=== PATIENT | male | born 1970 | race Caucasian/White ===

== ENCOUNTER 2016-07-25 08:30 | Inpatient (IN) | payer OTHER ==
[2016-07-25] MEDS ORDERED: NITROGLYCERIN SL TABS 0.4 MG TAB SUBLINGUAL PRN ×3 (08:51→13:17)
[2016-07-25] MEDS ORDERED: NITROGLYCERIN SL TABS 0.4 MG TAB SUBLINGUAL STA ×2 (08:53)
[2016-07-25] MEDS ORDERED: ASPIRIN 81 MG CHEW PO STA (08:53)
--- NOTE | 2016-07-25 08:59 | ED ---
General Adult HPI - General Chief complaint: Chest Pain Stated complaint: chest pain Source: patient, RN notes reviewed Mode of arrival: wheelchair Limitations: no limitations - History of Present Illness Initial comments: Is a 45-year-old male presents emergency Department with a past medical history significant for heart attack and one stent placed. Patient states he also is a smoker and has high blood pressure. Patient comes in today because last night at 10:00 started having chest pain he took 2 nitroglycerin 5 minutes apart and took the pain away completely. Patient states a little while after he started having chest pain indication of the pain radiates to his left arm. Patient states the pain is a pressure sensation in his been ongoing since last night. Patient states this pain is similar to his heart attack pain except worse. Patient states that he has been very diaphoretic. Patient denies any recent fever chills or cough. Patient denies any nausea. Patient denies any abdominal pain patient denies any headache patient denies numbness weakness. Patient denies any lightheadedness dizziness or near-syncopal episode. - Related Data Home Medications Medication Instructions Recorded Confirmed Cyclobenzaprine [Flexeril] 10 mg PO BID 11/08/15 07/25/16 PARoxetine [Paxil] 40 mg PO DAILY 11/08/15 07/25/16 oxyCODONE-APAP 7.5-325MG [Percocet 1 tab PO TID PRN 12/08/15 07/25/16 7.5-325 mg] Nitroglycerin Sl Tabs [Nitrostat] 0.4 mg SUBLINGUAL DIRECTED PRN 01/26/16 Previous Rx's Medication Instructions Recorded Aspirin 325 mg PO DAILY #90 tab 10/13/14 Atorvastatin [Lipitor] 80 mg PO HS #90 tab 10/13/14 Diazepam [Valium] 5 mg PO BID PRN #0 tab 10/13/14 Metoprolol Tartrate [Lopressor] 25 mg PO BID #60 tab 10/13/14 Allergies Allergy/AdvReac Type Severity Reaction Status Date / Time diclofenac sodium Allergy Swelling Verified 07/25/16 08:58 [From Arthrotec] misoprostol [From Arthrotec] Allergy Swelling Verified 07/25/16 08:58 Review of Systems ROS Statement: Those systems with pertinent positive or pertinent negative responses have been documented in the HPI. ROS Other: All systems not noted in ROS Statement are negative. Past Medical History Past Medical History: Asthma, Chest Pain / Angina, GERD/Reflux, Hyperlipidemia, Hypertension, Myocardial Infarction (LA), Osteoarthritis (OA) Additional Past Medical History / Comment(s): ARTHRITIS, CHRONIC PAIN, SMOKER Last Myocardial Infarction Date:: 10/2014 History of Any Multi-Drug Resistant Organisms: None Reported Past Surgical History: Orthopedic Surgery Additional Past Surgical History / Comment(s): LEFT KNEE ARTHROSCOPY, BILATERAL HAND CARPAL TUNNEL, LEFT HAND TRIGGER FINGER RELEASE Past Anesthesia/Blood Transfusion Reactions: No Reported Reaction Past Psychological History: Anxiety, Depression Smoking Status: Current every day smoker Past Alcohol Use History: None Reported Additional Past Alcohol Use History / Comment(s): started smoking 1977- down to 1 PPD Past Drug Use History: Marijuana Additional Drug Use History / Comment(s): . - Past Family History Father Family Medical History: Coronary Artery Disease (CAD) Mother Family Medical History: No Reported History General Exam - General Exam Comments Initial Comments: GENERAL: Patient is well-developed and well-nourished. Patient is nontoxic and well- hydrated and is in mild distress. Patient is diaphoretic ENT: Neck is soft and supple. No significant lymphadenopathy is noted. Oropharynx is clear. Moist mucous membranes. Neck has full range of motion without eliciting any pain. EYES: The sclera were anicteric and conjunctiva were pink and moist. Extraocular movements were intact and pupils were equal round and reactive to light. Eyelids were unremarkable. PULMONARY: Unlabored respirations. Good breath sounds bilaterally. No audible rales rhonchi or wheezing was noted. CARDIOVASCULAR: There is a regular rate and rhythm without any murmurs gallops or rubs. ABDOMEN: Soft and nontender with normal bowel sounds. No palpable organomegaly was noted. There is no palpable pulsatile mass. SKIN: Skin is clear with no lesions or rashes and otherwise unremarkable. NEUROLOGIC: Patient is alert and oriented x3. Cranial nerves II through XII are grossly intact. Motor and sensory are also intact. Normal speech, volume and content. Symmetrical smile. MUSCULOSKELETAL: Normal extremities with adequate strength and full range of motion. No lower extremity swelling or edema. No calf tenderness. LYMPHATICS: No significant lymphadenopathy is noted PSYCHIATRIC: Normal psychiatric evaluation. Normal interpersonal interactions appears functionally intact in deals appropriately with others. No signs of depression. No signs of anxiety. Limitations: no limitations Course Vital Signs 07/25/16 07/25/16 07/25/16 08:33 08:41 08:50 Temperature 97.8 F Pulse Rate 108 H 108 H 102 H Respiratory 20 22 24 Rate Blood Pressure 134/75 154/79 154/76 O2 Sat by Pulse 99 96 Oximetry 07/25/16 07/25/16 07/25/16 09:02 09:11 09:15 Temperature Pulse Rate 105 H 111 H 114 H Respiratory Rate Blood Pressure 130/61 131/64 124/54 O2 Sat by Pulse Oximetry 07/25/16 07/25/16 09:52 10:50 Temperature 99.3 F Pulse Rate 110 H 105 H Respiratory 18 20 Rate Blood Pressure 120/60 118/65 O2 Sat by Pulse 96 Oximetry Medical Decision Making - Medical Decision Making EKG shows sinus tachycardia at 102 bpm TX interval is 134 QRS is 86 QT interval is 354 QTC is 461. Patient's EKG shows no ST segment elevation or depression. I compared this EKG to an old EKG. CT of the chest shows no PE. I started heparin on the patient because of his significant cardiac history in the significant symptoms patient was having arrival. He also is getting immediate relief with nitroglycerin I thought this could very well be cardiac in nature. I spoke with Dr. Plaza he admitted the patient I wrote admitting orders and consult cardiology - Lab Data Result diagrams: 07/25/16 08:40 07/25/16 08:40 Lab Results 07/25/16 07/25/16 07/25/16 Range/Units 08:40 08:40 08:40 WBC 16.1 H (3.8-10.6) k/uL RBC 5.41 (4.30-5.90) m/uL Hgb 17.0 (13.0-17.5) gm/dL Hct 49.4 (39.0-53.0) % MCV 91.4 (80.0-100.0) fL MCH 31.4 (25.0-35.0) pg MCHC 34.4 (31.0-37.0) g/dL RDW 13.2 (11.5-15.5) % Plt Count 307 (150-450) k/uL Neutrophils % 73 % Lymphocytes % 19 % Monocytes % 4 % Eosinophils % 2 % Basophils % 1 % Neutrophils # 11.7 H (1.3-7.7) k/uL Lymphocytes # 3.0 (1.0-4.8) k/uL Monocytes # 0.7 (0-1.0) k/uL Eosinophils # 0.3 (0-0.7) k/uL Basophils # 0.1 (0-0.2) k/uL PT (9.0-12.0) sec INR (<1.1) APTT (22.0-30.0) sec D-Dimer (<0.60) mg/L FEU Sodium 135 L (137-145) mmol/L Potassium 4.5 (3.5-5.1) mmol/L Chloride 98 (98-107) mmol/L Carbon Dioxide 25 (22-30) mmol/L Anion Gap 12 mmol/L BUN 8 L (9-20) mg/dL Creatinine 0.76 (0.66-1.25) mg/dL Est GFR (MDRD) Af Amer >60 (>60 ml/min/1.73 sqM) Est GFR (MDRD) Non-Af >60 (>60 ml/min/1.73 sqM) Glucose 276 H (74-99) mg/dL Calcium 9.5 (8.4-10.2) mg/dL Magnesium 1.7 (1.6-2.3) mg/dL Total Bilirubin 0.9 (0.2-1.3) mg/dL AST 29 (17-59) U/L ALT 41 (21-72) U/L Alkaline Phosphatase 151 H (38-126) U/L Total Creatine Kinase 253 H (55-170) U/L CK-MB (CK-2) 2.1 (0.0-2.4) ng/mL CK-MB (CK-2) Rel Index 0.8 Troponin I <0.012 (0.000-0.034) ng/mL Total Protein 7.8 (6.3-8.2) g/dL Albumin 4.2 (3.5-5.0) g/dL 07/25/16 07/25/16 Range/Units 08:40 08:40 WBC (3.8-10.6) k/uL RBC (4.30-5.90) m/uL Hgb (13.0-17.5) gm/dL Hct (39.0-53.0) % MCV (80.0-100.0) fL MCH (25.0-35.0) pg MCHC (31.0-37.0) g/dL RDW (11.5-15.5) % Plt Count (150-450) k/uL Neutrophils % % Lymphocytes % % Monocytes % % Eosinophils % % Basophils % % Neutrophils # (1.3-7.7) k/uL Lymphocytes # (1.0-4.8) k/uL Monocytes # (0-1.0) k/uL Eosinophils # (0-0.7) k/uL Basophils # (0-0.2) k/uL PT 10.4 (9.0-12.0) sec INR 1.0 (<1.1) APTT 23.4 (22.0-30.0) sec D-Dimer 0.91 H (<0.60) mg/L FEU Sodium (137-145) mmol/L Potassium (3.5-5.1) mmol/L Chloride (98-107) mmol/L Carbon Dioxide (22-30) mmol/L Anion Gap mmol/L BUN (9-20) mg/dL Creatinine (0.66-1.25) mg/dL Est GFR (MDRD) Af Amer (>60 ml/min/1.73 sqM) Est GFR (MDRD) Non-Af (>60 ml/min/1.73 sqM) Glucose (74-99) mg/dL Calcium (8.4-10.2) mg/dL Magnesium (1.6-2.3) mg/dL Total Bilirubin (0.2-1.3) mg/dL AST (17-59) U/L ALT (21-72) U/L Alkaline Phosphatase (38-126) U/L Total Creatine Kinase (55-170) U/L CK-MB (CK-2) (0.0-2.4) ng/mL CK-MB (CK-2) Rel Index Troponin I (0.000-0.034) ng/mL Total Protein (6.3-8.2) g/dL Albumin (3.5-5.0) g/dL Critical Care Time Critical Care Time: Yes Total Critical Care Time: 35 Disposition Clinical Impression: Unstable angina pectoris Disposition: [facility] Time of Disposition: 10:58
[2016-07-25 09:03] LABS: Basophils # (A) 0.1 k/uL (0-0.2); Basophils % (A) 1 %; CH 31.7; CHCM 34.8; Eosinophils # (A) 0.3 k/uL (0-0.7); Eosinophils % (A) 2 %; HCT 49.4 % (39.0-53.0); Luc # (Auto) 0.36; Luc % (Auto) 2; Lymphocytes % (A) 19 %; MCH 31.4 pg (25.0-35.0); MCHC 34.4 g/dL (31.0-37.0); MCV 91.4 fL (80.0-100.0); Mean Platelet Volume 6.8; Monocytes # (A) 0.7 k/uL (0-1.0); Monocytes % (A) 4 %; Neutrophils # (A) 11.7 k/uL (1.3-7.7); Neutrophils % (A) 73 %; RBC 5.41 m/uL (4.30-5.90); RDW 13.2 % (11.5-15.5); WBC 16.1 k/uL (3.8-10.6); WBC (Perox) 16.55
[2016-07-25 09:15] LABS: ALT 41 U/L (21-72); AST 29 U/L (17-59); Alkaline Phosphatase 151 U/L (38-126); Anion Gap 12 mmol/L; Blood Urea Nitrogen 8 mg/dL (9-20); Calcium 9.5 mg/dL (8.4-10.2); Carbon Dioxide 25 mmol/L (22-30); Chloride 98 mmol/L (98-107); Glucose 276 mg/dL (74-99); Magnesium 1.7 mg/dL (1.6-2.3); Non-African American GFR(MDRD) >60 (>60 ml/min/1.73 sqM); Potassium 4.5 mmol/L (3.5-5.1); Sodium 135 mmol/L (137-145); Total Bilirubin 0.9 mg/dL (0.2-1.3); Total Protein 7.8 g/dL (6.3-8.2)
[2016-07-25 09:19] LABS: Partial Thromboplastin Time 23.4 sec (22.0-30.0); Prothrombin Time 10.4 sec (9.0-12.0)
[2016-07-25 09:23] LABS: Creatine Kinase 253 U/L (55-170)
[2016-07-25] MEDS ORDERED: NITROGLYCERIN OINT 1 INCH/GM PACKET TOPICAL STA (09:26)
[2016-07-25 09:36] LABS: Creatine Kinase MB 2.1 ng/mL (0.0-2.4); Troponin I <0.012 ng/mL (0.000-0.034)
--- NOTE | 2016-07-25 09:54 | XR ---
EXAMINATION TYPE: XR chest 2V DATE OF EXAM: 07/25/2016 9:37 AM COMPARISON: NONE HISTORY: Chest pain, asthma TECHNIQUE: Frontal and lateral views of the chest are obtained. FINDINGS: There is no focal air space opacity, pleural effusion, or pneumothorax seen. The cardiac silhouette size is within normal limits. There are overlying cardiac leads. Prominent lung volumes m ay be indicative of underlying COPD. There is some bronchial wall thickening. The osseous structures are intact. IMPRESSION: Findings compatible with reactive airways disease. Follow-up as indicated.
[2016-07-25] MEDS ORDERED: HEPARIN SODIUM,PORCINE 5,000 UNIT/ML 1 ML VIAL IV ONE (10:25)
[2016-07-25] MEDS ORDERED: RX INFO: IV CONTRAST WAS GIVEN 1 EACH MISC MISCELLANE PRN (10:26)
--- NOTE | 2016-07-25 10:52 | CT ---
CT CHEST FOR PULMONARY EMBOLISM. EXAMINATION TYPE: CT chest angio for PE DATE OF EXAM: 07/25/2016 10:47 AM INDICATION: Patient complains of chest pain starting last night. CT DLP: 623 mGycm, Automated exposure control for dose reduction was used. CONTRAST: Patient injected with 100 mL of Omnipaque 350. COMPARISON: NONE TECHNIQUE: CT of the chest is performed on a spiral scan at 2 mm thick sections. Study is performed with intravenous contrast timed for evaluation for pulmonary embolism. This will limit additional po rtions of the evaluation. 3-D MIP images reconstructed by the technologist are reviewed on the compu ter in the coronal and sagittal planes. FINDINGS: No persistent filling defects are evident to suggest an acute pulmonary embolism. Contrast timing is less than optimal. No mediastinal or hilar adenopathy enlarged by CT criteria is evident. The ascending aorta diameter at the level of the main pulmonary artery is 3.3 cm. The main pulmonary artery diameter at the bifur cation is 3.2 cm. Lung windows are clear. Limited CT section through the upper abdomen are unremarkable. IMPRESSIONS: 1. No acute pulmonary embolism. Smaller peripheral emboli may be more difficult to visualize due to c ontrast timing.
[2016-07-25] MEDS: HEPARIN SODIUM,PORCINE/D5W PMX 25,000 UNIT in DEXTROSE/WATER 1 500ML.BAG IV SCH (10:57)
[2016-07-25 12:42] LABS: Glucose,Whole Blood 188 mg/dL (75-99)
[2016-07-25] MEDS ORDERED: SODIUM CHLORIDE 0.9% 1,000 ML in EMPTY BAG 1 BAG IV ONE (13:17)
[2016-07-25] MEDS ORDERED: ALPRAZolam 0.25 MG TAB PO PRN (13:17)
[2016-07-25] MEDS ORDERED: ALPRAZolam 0.5 MG TAB PO PRN (13:17)
[2016-07-25] MEDS ORDERED: ATORVASTATIN 80 MG TAB PO STA (13:17)
[2016-07-25] MEDS ORDERED: ASPIRIN 325 MG TAB PO STA (13:17)
--- NOTE | 2016-07-25 13:32 | CONS ---
DATE OF CONSULTATION: CHIEF COMPLAINT: Chest pain. Ilan is a 45-year-old gentleman with history of coronary artery disease, status post angioplasty of LAD in the setting of anterior wall myocardial infarction, chronic back pain, dyslipidemia who presents to the hospital complaining of chest pain. He describes it as a precordial chest pressure, moderate to severe intensity that radiated to left arm, came on at rest. He felt uncomfortable. Came to the ER. Took nitroglycerin and became pain free. At the time of my evaluation this morning, he is chest pain-free and hemodynamically stable and in no distress. EKG does not reveal acute ischemic changes. First set of troponin is negative. Past medical history is significant for CAD, status post angioplasty, hypertension, dyslipidemia, GERD, osteoarthritis. The patient is allergic to ARTHROTEC. Medications include aspirin, Lipitor, Valium, and Lopressor along with Flexeril, Percocet and Paxil. Family history is negative for premature coronary artery disease. SOCIAL HISTORY: It is significant for current smoking. There is no history of EtOH abuse or drug abuse. REVIEW OF SYSTEMS: HEENT: Unremarkable. CARDIAC: As described above. RESPIRATORY: Negative. GI: Negative. GENITOURINARY: Negative. ALLERGY/IMMUNOLOGICAL: Negative. MUSCULOSKELETAL: Significant for arthritis. PSYCHOSOCIAL: Negative. ENDOCRINE: Negative. HEMATOLOGICAL: Negative. DERMATOLOGICAL: Negative. CONSTITUTIONAL: Negative. ONCOLOGICAL: Negative. The rest of the system review is not relevant. On exam, patient is comfortable at rest. Vital signs are stable. There is no jugular venous distention. Carotid upstroke is normal. There is no bruit. Chest exam reveals good air entry bilaterally. Heart exam reveals first and second heart sounds. No gallop. No murmur, no rub. Abdomen is soft, nontender. Exam of the extremities did not reveal any edema. Peripheral pulses are felt. Labs show a hemoglobin of 17, platelet count is 307. Potassium is 4.5. Creatinine is 0.76. First set of troponin is negative. EKG does not reveal acute ischemic changes. ASSESSMENT: Unstable angina. PLAN: The patient is on optimal medical therapy with aspirin, nitrates, Lipitor, heparin and beta blockers. I advised him to undergo cardiac catheterization tomorrow with Dr. Courtney to evaluate for ischemic heart disease.
[2016-07-25] MEDS: NITROGLYCERIN OINT 1 INCH/GM PACKET TOPICAL SCH ×3 (13:37→23:40)
[2016-07-25] MEDS: DIAZEPAM 5 MG TAB PO PRN ×2 (13:37→21:16)
[2016-07-25] MEDS: NICOTINE 21MG/24HR PATCH TRANSDERM SCH (13:38)
[2016-07-25] MEDS: METOPROLOL TARTRATE 25 MG TAB PO SCH ×2 (13:38→21:16)
[2016-07-25] MEDS: PARoxetine 20 MG TAB PO SCH (13:38)
[2016-07-25] MEDS: CYCLOBENZAPRINE 10 MG TAB PO SCH ×2 (13:38→21:16)
[2016-07-25] MEDS: INSULIN LISPRO (humaLOG) 300 UNIT/3 ML VIAL SQ SCH ×3 (13:38→21:16)
[2016-07-25 15:07] LABS: Creatine Kinase 248 U/L (55-170)
[2016-07-25 15:18] LABS: Creatine Kinase MB 2.4 ng/mL (0.0-2.4); Troponin I <0.012 ng/mL (0.000-0.034)
[2016-07-25 17:21] LABS: Glucose,Whole Blood 203 mg/dL (75-99)
[2016-07-25 19:43] LABS: Hemoglobin A1C 8.7 % (4.2-6.1)
[2016-07-25 20:03] LABS: Glucose,Whole Blood 227 mg/dL (75-99)
[2016-07-25] MEDS: HEPARIN SODIUM,PORCINE 5,000 UNIT/ML 1 ML VIAL IV PRN (21:06)
[2016-07-25] MEDS: ATORVASTATIN 80 MG TAB PO SCH (21:11)
[2016-07-25] MEDS: oxyCODONE-APAP 7.5-325MG 1 EACH TAB PO PRN (21:16)
[2016-07-25 21:56] LABS: Creatine Kinase 250 U/L (55-170)
[2016-07-25 22:07] LABS: Creatine Kinase MB 2.4 ng/mL (0.0-2.4); Troponin I <0.012 ng/mL (0.000-0.034)
[2016-07-26 03:20] LABS: Cholesterol 141 mg/dL (<200); HDL Cholesterol 32 mg/dL (40-60); Triglycerides 247 mg/dL (<150)
[2016-07-26] MEDS: HEPARIN SODIUM,PORCINE 5,000 UNIT/ML 1 ML VIAL IV PRN (04:09)
[2016-07-26] MEDS: HEPARIN SODIUM,PORCINE/D5W PMX 25,000 UNIT in DEXTROSE/WATER 1 500ML.BAG IV SCH (04:10)
[2016-07-26] MEDS: NITROGLYCERIN OINT 1 INCH/GM PACKET TOPICAL SCH ×4 (05:51→23:33)
[2016-07-26] MEDS: METOPROLOL TARTRATE 25 MG TAB PO SCH ×2 (05:53→21:31)
[2016-07-26] MEDS: ASPIRIN 325 MG TAB PO SCH (05:53)
[2016-07-26] MEDS: CYCLOBENZAPRINE 10 MG TAB PO SCH ×3 (05:54→21:31)
[2016-07-26] MEDS: PARoxetine 20 MG TAB PO SCH (05:54)
[2016-07-26] MEDS: oxyCODONE-APAP 7.5-325MG 1 EACH TAB PO PRN ×3 (05:56→21:32)
[2016-07-26] MEDS: DIAZEPAM 5 MG TAB PO PRN (05:56)
[2016-07-26] MEDS: NICOTINE 21MG/24HR PATCH TRANSDERM SCH (05:57)
[2016-07-26 07:00] LABS: Glucose,Whole Blood 191 mg/dL (75-99)
[2016-07-26] MEDS: ATORVASTATIN 80 MG TAB PO SCH (07:06)
[2016-07-26] MEDS ORDERED: IV FLUID CONTINUATION 1,000 ML IV ONE (07:25)
[2016-07-26] MEDS ORDERED: LIDOCAINE 2% INJ 20 MG/ML SQ ONE ×2 (07:39→07:40)
[2016-07-26] MEDS: MIDAZOLAM 2 MG/2 ML VIAL IV ONE ×2 (07:40→08:41)
[2016-07-26] MEDS ORDERED: fentaNYL (PF) 50 MCG/ML 2 ML AMP IV ONE (07:40)
--- NOTE | 2016-07-26 07:48 | P.HPIM ---
History of Present Illness H&P Date: 07/25/16 Chief Complaint: Chest pressure This is a history and physical 45-year-old white male very well-known to my practice who has an underlying history of previous myocardial infarction and stent placed in the past. Unfortunately, he has continued to smoke one to 3 packs of cigarettes a day. Patient states he been having chest pain with radiation to the left arm. Significant pressure as noted. Diaphoresis otherwise noted. No fever or chills. No nausea. The patient is admitted for appropriate unstable angina with previous history of coronary artery disease. Review of Systems Constitutional: Denies chills, Denies fever Eyes: denies blurred vision, denies pain Ears, nose, mouth and throat: Denies headache, Denies sore throat Cardiovascular: Reports as per HPI, Reports chest pain, Reports shortness of breath Respiratory: Denies cough Gastrointestinal: Denies abdominal pain, Denies diarrhea, Denies nausea, Denies vomiting Musculoskeletal: Denies myalgias Integumentary: Denies pruritus, Denies rash Neurological: Denies numbness, Denies weakness Past Medical History Past Medical History: Asthma, Chest Pain / Angina, GERD/Reflux, Hyperlipidemia, Hypertension, Myocardial Infarction (DC), Osteoarthritis (OA) Additional Past Medical History / Comment(s): ARTHRITIS multiple joints, CHRONIC PAIN, pinched nerves lumbar region, migraines. Last Myocardial Infarction Date:: 10/2014 History of Any Multi-Drug Resistant Organisms: None Reported Past Surgical History: Heart Catheterization With Stent, Orthopedic Surgery Additional Past Surgical History / Comment(s): 10/10/14 PTCA with stent to proximal LAD, LEFT KNEE ARTHROSCOPY, R wrist CARPAL TUNNEL, LEFT and right HAND TRIGGER FINGER RELEASE, pain clinic procedures-lumbar/sacral areas. Past Anesthesia/Blood Transfusion Reactions: Postoperative Nausea & Vomiting ( PONV) Date of Last Stent Placement:: 2014 Past Psychological History: Anxiety, Depression Additional Psychological History / Comment(s): Pt states he has depression which is at his baseline. Pt lives with spouse. He has limitations with his activites r/t pain problems. Pt no longer drives, his spouse takes him to appointments. Smoking Status: Current every day smoker Past Alcohol Use History: None Reported Additional Past Alcohol Use History / Comment(s): started smoking 1977- down to 1/2 PPD Past Drug Use History: Marijuana Additional Drug Use History / Comment(s): Pt states he smokes 2-3 joints a day for pain control. - Past Family History Father Family Medical History: Coronary Artery Disease (CAD) Additional Family Medical History / Comment(s): Father at the age of 63 yrs from cardiac aneurysm. Mother Family Medical History: Diabetes Mellitus, Hypertension, Osteoarthritis (OA) Additional Family Medical History / Comment(s): Back problems Medications and Allergies Home Medications Medication Instructions Recorded Confirmed Type Cyclobenzaprine [Flexeril] 10 mg PO BID 11/08/15 07/25/16 History PARoxetine [Paxil] 40 mg PO DAILY 11/08/15 07/25/16 History oxyCODONE-APAP 7.5-325MG [Percocet 1 tab PO TID PRN 12/08/15 07/25/16 History 7.5-325 mg] Nitroglycerin Sl Tabs [Nitrostat] 0.4 mg SUBLINGUAL DIRECTED PRN 01/26/16 History Allergies Allergy/AdvReac Type Severity Reaction Status Date / Time diclofenac sodium Allergy Swelling Verified 07/25/16 08:58 [From Arthrotec] misoprostol [From Arthrotec] Allergy Swelling Verified 07/25/16 08:58 Physical Exam Vitals: Vital Signs Temp Pulse Pulse Resp BP BP Pulse Ox 07/25/16 20:00 99 16 07/25/16 19:58 97.7 F 99 16 123/75 96 07/25/16 16:00 99 18 07/25/16 15:48 97.9 F 85 18 105/55 96 07/25/16 13:15 96 07/25/16 12:00 97.7 F 100 18 141/71 96 07/25/16 11:21 99.2 F 102 H 18 115/58 99 Intake and Output 07/25/16 07/25/16 07/25/16 06:59 14:59 22:59 Intake Total 90 Balance 90 Intake: Oral 90 Other: Voiding Method Toilet Weight 129 kg Patient Weight 07/26/16 06:59 Weight 129 kg - Constitutional General appearance: obese - EENT Eyes: EOMI - Neck Neck: no lymphadenopathy - Respiratory Respiratory: bilateral: diminished, dullness - Cardiovascular Rhythm: regular Heart sounds: normal: S1, S2 - Gastrointestinal General gastrointestinal: soft - Neurologic Neurologic: CNII-XII intact, focal deficits Results CBC & Chem 7: 07/25/16 08:40 07/25/16 08:40 Labs: Abnormal Lab Results - Last 24 Hours (Table) 07/25/16 07/25/16 07/25/16 Range/Units 12:36 14:30 17:18 POC Glucose (mg/dL) 188 H 203 H (75-99) mg/dL Total Creatine Kinase 248 H (55-170) U/L 07/25/16 Range/Units 20:00 POC Glucose (mg/dL) 227 H (75-99) mg/dL Total Creatine Kinase (55-170) U/L Thrombosis Risk Factor Assmnt - Choose All That Apply Any of the Below Risk Factors Present?: Yes Each Factor Represents 1 point: Age 41-60 years, Obesity (BMI >25) Other Risk Factors: No Other congenital or acquired thrombophilia - If yes, enter type in comment: No Thrombosis Risk Factor Assessment Total Risk Factor Score: 2 Thrombosis Risk Factor Assessment Level: Low Risk Assessment and Plan (1) Unstable angina pectoris Status: Acute (2) Hyperlipidemia Status: Acute (3) Hypertension Status: Acute (4) Nicotine dependence Status: Acute (5) Presence of stent in LAD coronary artery Status: Acute Plan: Rule out myocardial infarction. Given his symptomatology and previous history, I question the need for stress testing versus repeat cardiac catheterization. Smoking cessation again discussed with patient. Recommendations all medications. He is full code. See orders otherwise.
[2016-07-26] MEDS: INSULIN LISPRO (humaLOG) 300 UNIT/3 ML VIAL SQ SCH ×4 (08:09→21:22)
--- NOTE | 2016-07-26 08:13 | P.CRDCN ---
History of Present Illness Consult date: 07/26/16 History of present illness: HISTORY: This a 45-year-old gentleman with history of ischemic heart disease who had stent placement of the LAD and diagonal done in 2004 in the setting of acute anterior wall myocardial infarction. Patient also has dyslipidemia who presented to the hospital with complaints of chest pain. Apparently the pains were relieved with nitroglycerin. His EKGs and cardiac enzymes are normal. Patient was evaluated by Dr. Meyers who recommended a cardiac catheterization for further evaluation. Patient is fully aware of the risks and benefits of the procedure CONSENT:I have discussed the risks, benefits and alternative therapies for the above-mentioned procedure and for both sedation/analgesia as well as necessary blood product administration, if indicated, as they pertain to this patient. The patient has indicated understanding and acceptance of the risks and procedures discussed. PROCEDURE: Patient was brought to the lab in a fasting state. Patient was given some IV sedation. The right groin is infiltrated with lidocaine and right femoral artery was entered using Seldinger technique. A 6-Belizean catheter was left in place and selective coronary arteriography was performed. Patient tolerated the procedure well. Femoral angiogram was performed. Patient is found to have significant lesion in the PLV branch of the RCA and moderate disease in the first diagonal. The stents in the LAD and diagonal are patent HEMODYNAMICS: Aortic pressure is 120/80. Left ankle end-diastolic pressure is 25. There was no gradient across the aortic valve. SELECTIVE CORONARY ARTERIOGRAPHY: LEFT MAIN: Normal length with mild distal disease which is stable. THE LEFT ANTERIOR DESCENDING CORONARY ARTERY: This is a good caliber vessel with patent .The first diagonal also appears to be patent at the proximal portion and the mid diagonal portion has moderate disease which is stable. THE LEFT CIRCUMFLEX AND IS CORONARY ARTERY: This is a good caliber vessel and free of any significant occlusive disease THE RIGHT CORONARY ARTERY: This is a good caliber vessel giving rise to PDA and PLV. The PLV is a large branch which has about 70 -80% stenosis. The PDA is a small-caliber also has 70% stenosis but may not be amenable for any intervention LEFT VENTRICULOGRAPHY: Not performed FINAL IMPRESSION: #1. Patent stent in the LAD and also proximal diagonal. #2. Moderate disease in the mid diagonal portion #3. Critical lesion involving the PLV branch of the RCA and also PDA of the RCA. #4 elevated end-diastolic pressures PLAN: Continuation of medical therapy. Possible stenting of the RCA to be done by Dr. Ahuja PROGNOSIS: Fair Past Medical History Past Medical History: Asthma, Chest Pain / Angina, GERD/Reflux, Hyperlipidemia, Hypertension, Myocardial Infarction ([place]), Osteoarthritis (OA) Additional Past Medical History / Comment(s): ARTHRITIS multiple joints, CHRONIC PAIN, pinched nerves lumbar region, migraines. Last Myocardial Infarction Date:: 10/2014 History of Any Multi-Drug Resistant Organisms: None Reported Past Surgical History: Heart Catheterization With Stent, Orthopedic Surgery Additional Past Surgical History / Comment(s): 10/10/14 PTCA with stent to proximal LAD, LEFT KNEE ARTHROSCOPY, R wrist CARPAL TUNNEL, LEFT and right HAND TRIGGER FINGER RELEASE, pain clinic procedures-lumbar/sacral areas. Past Anesthesia/Blood Transfusion Reactions: Postoperative Nausea & Vomiting ( PONV) Date of Last Stent Placement:: 2014 Past Psychological History: Anxiety, Depression Additional Psychological History / Comment(s): Pt states he has depression which is at his baseline. Pt lives with spouse. He has limitations with his activites r/t pain problems. Pt no longer drives, his spouse takes him to appointments. Smoking Status: Current every day smoker Past Alcohol Use History: None Reported Additional Past Alcohol Use History / Comment(s): started smoking 1977- down to 1/2 PPD Past Drug Use History: Marijuana Additional Drug Use History / Comment(s): Pt states he smokes 2-3 joints a day for pain control. - Past Family History Father Family Medical History: Coronary Artery Disease (CAD) Additional Family Medical History / Comment(s): Father at the age of 63 yrs from cardiac aneurysm. Mother Family Medical History: Diabetes Mellitus, Hypertension, Osteoarthritis (OA) Additional Family Medical History / Comment(s): Back problems Medications and Allergies Home Medications Medication Instructions Recorded Confirmed Type Cyclobenzaprine [Flexeril] 10 mg PO BID 11/08/15 07/25/16 History PARoxetine [Paxil] 40 mg PO DAILY 11/08/15 07/25/16 History oxyCODONE-APAP 7.5-325MG [Percocet 1 tab PO TID PRN 12/08/15 07/25/16 History 7.5-325 mg] Nitroglycerin Sl Tabs [Nitrostat] 0.4 mg SUBLINGUAL DIRECTED PRN 01/26/16 History Allergies Allergy/AdvReac Type Severity Reaction Status Date / Time diclofenac sodium Allergy Swelling Verified 07/25/16 08:58 [From Arthrotec] misoprostol [From Arthrotec] Allergy Swelling Verified 07/25/16 08:58 Physical Exam Vitals: Vital Signs Temp Pulse Pulse Resp BP BP Pulse Ox 07/26/16 06:13 97.6 F 86 16 124/62 94 L 07/26/16 04:00 97.6 F 86 16 124/62 94 L 07/26/16 00:00 97.6 F 88 16 134/69 96 07/25/16 20:00 99 16 07/25/16 19:58 97.7 F 99 16 123/75 96 07/25/16 16:00 99 18 07/25/16 15:48 97.9 F 85 18 105/55 96 07/25/16 13:15 96 07/25/16 12:00 97.7 F 100 18 141/71 96 07/25/16 11:21 99.2 F 102 H 18 115/58 99 Intake and Output 07/25/16 07/26/16 07/26/16 22:59 06:59 14:59 Intake Total 652.565 572.615 Balance 652.565 572.615 Intake: IV 200 175 Heparin Sodium,Porcine/ 200 175 D5w Pmx 25,000 unit In Dextrose/Water 1 500ml. bag @ 7.6 UNITS/KG/HR 19. 99 mls/hr IV .Q24H KEY Rx #:[id number] Intake, IV Titration 202.565 197.615 Amount Heparin Sodium,Porcine/ 202.565 197.615 D5w Pmx 25,000 unit In Dextrose/Water 1 500ml. bag @ 7.6 UNITS/KG/HR 19. 99 mls/hr IV .Q24H KEY Rx #:[id number] Oral 250 200 Other: Voiding Method Toilet Toilet # Voids 3 2 Results 07/25/16 08:40 07/25/16 08:40 Cardiac Enzymes 07/25/16 07/25/16 Range/Units 14:30 21:09 CK-MB (CK-2) 2.4 2.4 (0.0-2.4) ng/mL Troponin I <0.012 <0.012 (0.000-0.034) ng/mL Coagulation 07/25/16 07/26/16 Range/Units 17:30 02:43 APTT 24.0 27.6 (22.0-30.0) sec Lipids 07/26/16 Range/Units 02:43 Triglycerides 247 H (<150) mg/dL Cholesterol 141 (<200) mg/dL HDL Cholesterol 32 L (40-60) mg/dL Current Medications Generic Name Dose Route Start Last Admin Trade Name Freq PRN Reason Stop Dose Admin Alprazolam 0.5 mg 07/25/16 13:17 Xanax PO Q6HR PRN Moderate Anxiety Aspirin 325 mg 07/26/16 09:00 07/26/16 05:53 Aspirin PO 325 mg DAILY KEY Administration Atorvastatin Calcium 80 mg 07/25/16 21:00 07/26/16 07:06 Lipitor PO 80 mg HS KEY Administration Cyclobenzaprine HCl 10 mg 07/25/16 12:45 07/26/16 05:54 Flexeril PO 10 mg BID KEY Administration Diazepam 5 mg 07/25/16 12:30 07/26/16 05:56 Valium PO 5 mg BID PRN Administration Anxiety Heparin Sodium (Porcine) 0 unit 07/25/16 20:59 07/26/16 04:09 Heparin IV 4,000 unit PER PROTOCOL PRN Administration Low PTT Protocol Insulin Human Lispro 0 unit 07/25/16 17:30 07/25/16 21:16 Humalog SQ 5 unit ACHS KEY Administration Protocol Metoprolol Tartrate 25 mg 07/25/16 12:45 07/26/16 05:53 Lopressor PO 25 mg BID KEY Administration Miscellaneous Information 1 each 07/25/16 10:26 Rx Info: Iv Contrast Was Given MISCELLANE 07/27/16 10:26 DAILY PRN Per Protocol Nicotine 1 patch 07/25/16 12:45 07/26/16 05:57 Habitrol 21mg/24hr Patch TRANSDERM 1 patch DAILY KEY Administration Nitroglycerin 1 inch 07/25/16 12:00 07/26/16 05:51 Nitro-Bid Oint TOPICAL 1 inch Q6HR KEY Administration Nitroglycerin 0.4 mg 07/25/16 11:00 Nitrostat SUBLINGUAL Q5M PRN Chest Pain Nitroglycerin 0.4 mg 07/25/16 13:17 Nitrostat SUBLINGUAL Q5M PRN Chest Pain Oxycodone/Acetaminophen 1 each 07/25/16 12:30 07/26/16 05:56 Percocet 7.5-325 PO 1 each TID PRN Administration Pain Paroxetine HCl 40 mg 07/25/16 12:45 07/26/16 05:54 Paxil PO 40 mg DAILY KEY Administration Intake and Output 07/25/16 07/26/16 07/26/16 22:59 06:59 14:59 Intake Total 652.565 572.615 Balance 652.565 572.615 Intake: IV 200 175 Heparin Sodium,Porcine/ 200 175 D5w Pmx 25,000 unit In Dextrose/Water 1 500ml. bag @ 7.6 UNITS/KG/HR 19. 99 mls/hr IV .Q24H KEY Rx #:[id number] Intake, IV Titration 202.565 197.615 Amount Heparin Sodium,Porcine/ 202.565 197.615 D5w Pmx 25,000 unit In Dextrose/Water 1 500ml. bag @ 7.6 UNITS/KG/HR 19. 99 mls/hr IV .Q24H KEY Rx #:[id number] Oral 250 200 Other: Voiding Method Toilet Toilet # Voids 3 2
[2016-07-26] MEDS ORDERED: SODIUM CHLORIDE 0.9% 1,000 ML in EMPTY BAG 1 BAG IV ONE (08:25)
[2016-07-26] MEDS ORDERED: NITROGLYCERIN SL TABS 0.4 MG TAB SUBLINGUAL PRN ×2 (08:25→08:54)
[2016-07-26] MEDS ORDERED: ALPRAZolam 0.5 MG TAB PO PRN (08:25)
[2016-07-26] MEDS ORDERED: ASPIRIN 325 MG TAB PO STA (08:31)
[2016-07-26] MEDS ORDERED: ATORVASTATIN 80 MG TAB PO STA (08:31)
[2016-07-26] MEDS ORDERED: BIVALIRUDIN BOLUS 250 MG/50 ML IV ONE (08:33)
[2016-07-26] MEDS ORDERED: BIVALIRUDIN 250 MG in SODIUM CHLORIDE 0.9% 50 ML IV ONE (08:34)
[2016-07-26] MEDS ORDERED: CLOPIDOGREL 75 MG TAB ONE (08:37)
[2016-07-26] MEDS ORDERED: NITROGLYCERIN 1000MCG/10ML SYRINGE INTRACORON ONE (08:46)
[2016-07-26] MEDS ORDERED: CLOPIDOGREL 75 MG TAB PO ONE (08:46)
[2016-07-26] MEDS ORDERED: IOHEXOL 350 MG/ML 100 ML BOTTLE INTRATHECA ONE (08:48)
[2016-07-26] MEDS ORDERED: MAG HYDROX/AL HYDROX/SIMETH 30 ML CUP PO PRN (08:54)
[2016-07-26] MEDS ORDERED: RX INFO: IV CONTRAST WAS GIVEN 1 EACH MISC MISCELLANE PRN (08:54)
[2016-07-26] MEDS ORDERED: ATROPINE SULFATE 0.1 MG/ML 10ML SYRINGE IV PRN (08:54)
[2016-07-26] MEDS ORDERED: SODIUM CHLORIDE 0.9% 1,000 ML IV SCH (09:00)
[2016-07-26] MEDS ORDERED: ASPIRIN 325 MG TAB PO SCH (09:00)
[2016-07-26 09:41] LABS: Glucose,Whole Blood 159 mg/dL (75-99)
[2016-07-26 12:21] LABS: Glucose,Whole Blood 279 mg/dL (75-99)
[2016-07-26] MEDS: DIAZEPAM 5 MG TAB PO SCH ×2 (15:54→21:31)
--- NOTE | 2016-07-26 16:54 | PTCA ---
DATE OF SERVICE: 07/26/2016. Performing physician: Felipe Medina M.D., cath lab radiology technician. PROCEDURE PERFORMED: Successful stenting of the PLV branch of the right coronary artery using 275 x 12 mm Xience DILSHAD with a good angiographic results. INDICATION: This is a pleasant 45-year-old gentleman who sees Dr. Courtney as an outpatient with known history of coronary artery disease and prior stenting of the LAD presented to the hospital with chest discomfort and mildly abnormal cardiac enzymes. He underwent a heart catheterization by Dr. Courtney and was found to have severe disease involving the PLV branch of the RCA which definitely worse compared to before. Decision was made toward percutaneous coronary intervention. Approach: Right common femoral artery. COMPLICATIONS: None. Level of sedation: Moderate. PROCEDURE DESCRIPTION: After obtaining informed consent, the patient was brought to the cardiac laborer steel handling. After diagnostic heart catheterization was performed by Dr. Courtney and after reviewing the angiogram, we decided to proceed with an intervention on PLV branch of the RCA. At that point, anticoagulation was initiated. Subsequently and after anticoagulation was initiated using Angiomax. I did ( ) after that I engaged the RCA using JR4 guide. Subsequently I wired the RCA using a Whisper wire. Then I did direct stenting using 2.75 x 12 mm Xience DILSHAD, where the stent was positioned under fluoroscopy guidance and deployed under 12 atmospheres for 30 seconds. The following angiogram showed good angiographic results. POSTPROCEDURE MANAGEMENT: 1. Dual antiplatelet therapy. 2. Risk factor modifications. 3. Follow up with the patient.
[2016-07-26 17:57] LABS: Glucose,Whole Blood 184 mg/dL (75-99)
[2016-07-26] MEDS ORDERED: ZOLPIDEM 5 MG TAB PO PRN (21:00)
[2016-07-26 22:23] LABS: Glucose,Whole Blood 166 mg/dL (75-99)
[2016-07-27 06:07] VITALS: PULSE 92
[2016-07-27] MEDS: NITROGLYCERIN OINT 1 INCH/GM PACKET TOPICAL SCH (06:09)
[2016-07-27 06:23] LABS: Non-African American GFR(MDRD) >60 (>60 ml/min/1.73 sqM)
[2016-07-27 06:26] LABS: Glucose,Whole Blood 175 mg/dL (75-99)
[2016-07-27] MEDS: INSULIN LISPRO (humaLOG) 300 UNIT/3 ML VIAL SQ SCH (06:39)
--- NOTE | 2016-07-27 07:39 | P.PN ---
Subjective Principal diagnosis: Unstable angina This is a 45-year-old gentleman who follows with Dr. Courtney in the office. Known history of ischemic heart disease with prior stent placement of the LAD and diagonal in the setting of an acute anterior wall AR. Patient also has dyslipidemia. Presented to the hospital with complaints of chest discomfort that was relieved with nitroglycerin. EKG and cardiac enzymes were normal. Patient was seen and evaluated by Dr. Meyers who recommended cardiac catheterization. Patient underwent cardiac catheterization by Dr. Courtney with stent placement done by Dr. Medina to the PLV branch of the RCA. Upon examination today, patient is resting comfortably in bed. He is feeling well. He denies any complaints of shortness of breath, chest discomfort, palpitations , dizziness, lightheadedness or edema. Objective - Vital Signs Vital signs: Vital Signs Temp 97.2 F L 07/27/16 04:00 Pulse 92 07/27/16 04:00 Resp 14 07/27/16 04:00 BP 124/63 07/27/16 04:00 Pulse Ox 92 L 07/27/16 04:00 Intake & Output 07/26/16 07/27/16 07/27/16 18:59 06:59 18:59 Intake Total 1142.56 520 Output Total 750 Balance 392.56 520 Weight 128.6 kg Intake: IV 82.56 Intake, IV Titration 300 Amount Sodium Chloride 0.9% 1, 300 000 ml @ 100 mls/hr IV . Q10H KEY Rx#:[id number] Oral 760 520 Output: Urine 750 Other: Voiding Method Toilet # Voids 1 1 # Bowel Movements 0 - Exam PHYSICAL EXAMINATION: HEENT: Head is atraumatic, normocephalic. Pupils equal, round. Neck is supple. There is no elevated jugular venous pressure. HEART EXAMINATION: Heart sounds regular, S1 and S2 normal. No murmur or gallop heard. CHEST EXAMINATION: Lungs are clear to auscultation and precussion. No chest wall tenderness is noted on palpation or with deep breathing. ABDOMEN: Soft, nontender. Bowel sounds are heard. No organomegaly noted. EXTREMITIES: 2+ peripheral pulses with no evidence of peripheral edema and no calf tenderness noted. Right groin puncture site is soft without ecchymosis or hematoma. NEUROLOGIC patient is awake, alert and oriented x3. . - Labs CBC & Chem 7: 02/15/17 08:40 07/27/16 05:27 Labs: Abnormal Lab Results - Last 24 Hours (Table) 07/26/16 07/26/16 07/26/16 Range/Units 09:37 12:18 17:10 POC Glucose (mg/dL) 159 H 279 H 184 H (75-99) mg/dL 07/26/16 07/27/16 Range/Units 20:49 06:22 POC Glucose (mg/dL) 166 H 175 H (75-99) mg/dL Assessment and Plan Plan: Assessment and plan #1 unstable angina status post cardiac catheterization with stent placement to the PLV branch of the RCA #2 ischemic heart disease #3 dyslipidemia #4 chronic back pain From cardiac standpoint, patient may be discharged home today. Continue aspirin , Lipitor 80 mg by mouth daily at bedtime, Plavix 75 mg by mouth daily and metoprolol 25 mg by mouth twice a day. He will follow-up with Dr. Courtney in the office in one week. The above dictated assessment and findings were discussed with signing physician. The impression and plan of care have been directed as dictated. Regi Zapata, Nurse Practitioner, acting as scribe for signing physician.
--- NOTE | 2016-07-27 08:12 | P.DS ---
Providers Date of admission: 07/25/16 11:00 Attending physician: Kirit Plaza Consults: 07/26/16 08:54 Consult Physician Routine Consulting Provider: [facility] Consult Reason/Comments: Post Interventional patient Do you want consulting provider notified?: Already Contacted Primary care physician: Kirit Plaza - Discharge Diagnosis(es) (1) Unstable angina pectoris Current Visit: Yes Status: Acute (2) Hyperlipidemia Current Visit: No Status: Acute (3) Hypertension Current Visit: No Status: Acute (4) Nicotine dependence Current Visit: No Status: Acute (5) Presence of stent in LAD coronary artery Current Visit: No Status: Acute Hospital Course: This 45-year-old white male essentially admitted for unstable angina. Given his symptomatology, heart catheterization was done and stent was placed on RCA. This is a second stent in the last 3 years. He has had previous history of myocardial infraction. Long discussion regarding tobacco cessation. We will send him home on nicotine patches and he will follow-up with me in approximately 7 days. Patient Condition at Discharge: Stable Plan - Discharge Summary New Discharge Prescriptions: Aspirin 325 mg PO DAILY #30 tab Clopidogrel [Plavix] 75 mg PO DAILY #30 tab Nicotine 21Mg/24Hr Patch [Habitrol] 1 patch TRANSDERM DAILY #30 patch Nitroglycerin Sl Tabs [Nitrostat] 0.4 mg SUBLINGUAL DIRECTED PRN #25 tab PRN Reason: Chest Pain Discharge Medication List Aspirin 325 mg PO DAILY #90 tab 10/13/14 [Rx] Atorvastatin [Lipitor] 80 mg PO HS #90 tab 10/13/14 [Rx] Diazepam [Valium] 5 mg PO BID PRN #0 tab 10/13/14 [Rx] Metoprolol Tartrate [Lopressor] 25 mg PO BID #60 tab 10/13/14 [Rx] Cyclobenzaprine [Flexeril] 10 mg PO BID 11/08/15 [History] PARoxetine [Paxil] 40 mg PO DAILY 11/08/15 [History] oxyCODONE-APAP 7.5-325MG [Percocet 7.5-325 mg] 1 tab PO TID PRN 12/08/15 [ History] Aspirin 325 mg PO DAILY #30 tab 07/26/16 [Rx] Nitroglycerin Sl Tabs [Nitrostat] 0.4 mg SUBLINGUAL DIRECTED PRN #25 tab [Rx] Clopidogrel [Plavix] 75 mg PO DAILY #30 tab 07/27/16 [Rx] Nicotine 21Mg/24Hr Patch [Habitrol] 1 patch TRANSDERM DAILY #30 patch 07/27/16 [ Rx] Follow up Appointment(s)/Referral(s): Verona Courtney MD [STAFF PHYSICIAN] - 1 Week Kirit Plaza MD [Primary Care Provider] - 1 Week
[2016-07-27 08:19] VITALS: BP 136/73; RESP 16; TEMP 96.2
[2016-07-27] MEDS: ASPIRIN 325 MG TAB PO SCH (08:22)
[2016-07-27] MEDS: NICOTINE 21MG/24HR PATCH TRANSDERM SCH (08:22)
[2016-07-27] MEDS: PARoxetine 20 MG TAB PO SCH (08:23)
[2016-07-27] MEDS: METOPROLOL TARTRATE 25 MG TAB PO SCH (08:23)
[2016-07-27] MEDS: CYCLOBENZAPRINE 10 MG TAB PO SCH (08:23)
[2016-07-27] MEDS: oxyCODONE-APAP 7.5-325MG 1 EACH TAB PO PRN (08:32)
[2016-07-27] MEDS: DIAZEPAM 5 MG TAB PO SCH (08:32)
[2016-07-27] MEDS ORDERED: CLOPIDOGREL 75 MG TAB PO SCH (09:00)
== END 2016-07-27 10:41 | disposition home or self-care (01) | DRG 247 ==
LOC: EC 08:30 → 3OBS 11:00 → OBSVTOIN 11:00 → 6SEL 07-26 10:02
PROVIDERS: ADMIT Family Medicine; ATTEND Family Medicine
PROC: B2111ZZ Fluoroscopy of Multiple Coronary Arteries using Low Osmolar Contrast (ICD-10-PCS; 2016-07-26)
PROC: B41F1ZZ Fluoroscopy of Right Lower Extremity Arteries using Low Osmolar Contrast (ICD-10-PCS; 2016-07-26)
PROC: 027034Z Dilation of Coronary Artery, One Artery with Drug-eluting Intraluminal Device, Percutaneous Approach (ICD-10-PCS; principal; 2016-07-26 07:30)
PROC: 4A023N7 Measurement of Cardiac Sampling and Pressure, Left Heart, Percutaneous Approach (ICD-10-PCS; 2016-07-26 07:30)
DX: I25.110 Atherosclerotic heart disease of native coronary artery with unstable angina pectoris (principal); I10 Essential (primary) hypertension; E78.5 Hyperlipidemia, unspecified; G89.29 Other chronic pain; M54.9 Dorsalgia, unspecified; I25.2 Old myocardial infarction; F17.210 Nicotine dependence, cigarettes, uncomplicated; F41.9 Anxiety disorder, unspecified; F32.9 Major depressive disorder, single episode, unspecified; J45.909 Unspecified asthma, uncomplicated; K21.9 Gastro-esophageal reflux disease without esophagitis; M19.90 Unspecified osteoarthritis, unspecified site; G43.909 Migraine, unspecified, not intractable, without status migrainosus; Z79.82 Long term (current) use of aspirin; Z79.899 Other long term (current) drug therapy; Z95.5 Presence of coronary angioplasty implant and graft; Z88.8 Allergy status to other drugs, medicaments and biological substances; Z82.49 Family history of ischemic heart disease and other diseases of the circulatory system
CPT/HCPCS: 36415; 71020; 71275; 80053; 80061; 82550; 82553; 82565; 83036; 83735; 84484; 85025; 85379; 85610; 85730; 93005; 93458; 96365; 96376; 99291

== ENCOUNTER 2018-01-10 20:18 | Emergency (ER) | payer OTHER ==
--- NOTE | 2018-01-10 22:20 | ED ---
General Adult HPI - General Chief complaint: Psychiatric Symptoms Stated complaint: Mental Health Time Seen by Provider: 01/10/18 22:02 Source: patient, family, RN notes reviewed Mode of arrival: ambulatory Limitations: no limitations - History of Present Illness Initial comments: Chief complaint history of present illness this is a 47-year-old male here with his mother. He she lives in the apartment below him. He was brought emergency room by police because his and daughter called on 2 occasions thinking he may hurt himself. Patient denies wanting hurt himself. He reports 6 weeks ago he broke up with his , he states he walked out on him. He reports he was sad but is not depressed. For the last several days been on Seroquel and states she sleeps well feels much better. His mother echoes his statements concerning not eating depressed. He does have an appointment to follow-up with a counselor. - Related Data Home Medications Medication Instructions Recorded Confirmed Cyclobenzaprine [Flexeril] 10 mg PO BID 11/08/15 09/05/16 PARoxetine [Paxil] 40 mg PO DAILY 11/08/15 09/05/16 oxyCODONE-APAP 7.5-325MG [Percocet 1 tab PO TID PRN 12/08/15 09/05/16 7.5-325 mg] sitaGLIPtin PHOS/metFORMIN HCL 1 tab PO DAILY 09/05/16 09/05/16 [Janumet 50-1,000 mg Tablet] Previous Rx's Medication Instructions Recorded Atorvastatin [Lipitor] 80 mg PO HS #90 tab 10/13/14 Diazepam [Valium] 5 mg PO BID PRN #0 tab 10/13/14 Metoprolol Tartrate [Lopressor] 25 mg PO BID #60 tab 10/13/14 Aspirin 325 mg PO DAILY #30 tab 07/26/16 Nitroglycerin Sl Tabs [Nitrostat] 0.4 mg SUBLINGUAL DIRECTED PRN 07/26/16 #25 tab Clopidogrel [Plavix] 75 mg PO DAILY #30 tab 07/27/16 Nicotine 21Mg/24Hr Patch [Habitrol] 1 patch TRANSDERM DAILY #30 patch 07/27/16 Allergies Allergy/AdvReac Type Severity Reaction Status Date / Time diclofenac sodium Allergy Swelling Verified 09/05/16 13:14 [From Arthrotec] misoprostol [From Arthrotec] Allergy Swelling Verified 09/05/16 13:14 Review of Systems ROS Statement: Those systems with pertinent positive or pertinent negative responses have been documented in the HPI. Review of systems at this time no complaint of depression or being angry or sad. Denies headache chest pain shortness breath GI/ problems no neuro deficits. All systems are reviewed. Past medical problems asthma, angina with ID, insulin-dependent diabetes mellitus, GERD, hyperlipidemia and hypertension. The patient also has osteoarthritis. His surgeries include heart catheter 2 stents placed and some orthopedic surgery. Patient's family history noncontributory. ALLERGIES to diclofenac , and me misoprostol. Patient does smoke states he stopped all narcotics over 2 months ago cold turkey. Reports he does use marijuana. Denies alcohol use of any significance. ROS Other: All systems not noted in ROS Statement are negative. Past Medical History Past Medical History: Asthma, Chest Pain / Angina, Diabetes Mellitus, GERD/ Reflux, Hyperlipidemia, Hypertension, Myocardial Infarction (ID), Osteoarthritis (OA) Additional Past Medical History / Comment(s): ARTHRITIS multiple joints, CHRONIC PAIN, pinched nerves lumbar region, migraines. Last Myocardial Infarction Date:: 07/2016 History of Any Multi-Drug Resistant Organisms: None Reported Past Surgical History: Heart Catheterization With Stent, Orthopedic Surgery Additional Past Surgical History / Comment(s): 10/10/14 PTCA with stent to proximal LAD, LEFT KNEE ARTHROSCOPY, R wrist CARPAL TUNNEL, LEFT and right HAND TRIGGER FINGER RELEASE, pain clinic procedures-lumbar/sacral areas. Past Anesthesia/Blood Transfusion Reactions: Postoperative Nausea & Vomiting ( PONV) Date of Last Stent Placement:: 2014 Past Psychological History: Anxiety, Depression Smoking Status: Current every day smoker Past Alcohol Use History: None Reported Past Drug Use History: Marijuana - Past Family History Father Family Medical History: Coronary Artery Disease (CAD) Additional Family Medical History / Comment(s): Father at the age of 63 yrs from cardiac aneurysm. Mother Family Medical History: Diabetes Mellitus, Hypertension, Osteoarthritis (OA) Additional Family Medical History / Comment(s): Back problems General Exam - General Exam Comments Initial Comments: General: The patient is awake and alert, in no distress, and does not appear acutely ill. Here because the police brought him in because his family thought he was stating he was sad and suicidal. He denies this. Vital signs stable. Eye: Pupils are equal, round and reactive to light, extra-ocular movements are intact ; there is normal conjunctiva bilaterally. No signs of icterus. Ears, nose, mouth and throat: There are moist mucous membranes and no oral lesions. Neck: The neck is supple, there is no tenderness. Cardiovascular: There is a regular rate and rhythm. No murmur, rub or gallop is appreciated. Respiratory: Lungs are clear to auscultation, respirations are non-labored, breath sounds are equal. No wheezes, stridor, rales, or rhonchi. Gastrointestinal: No nausea no vomiting no abdominal pain. Back: Chronic back pain but no acute pain at this time. Musculoskeletal: Normal ROM, no tenderness, There is no pedal edema. There is no calf tenderness or swelling. Sensation intact. P CN II-XII intact, There are no obvious motor or sensory deficits. Coordination appears grossly intact. Speech is normal. Skin: Skin is warm and dry and no rashes or lesions are noted. Psychiatric: Cooperative, appropriate mood & affect, normal judgment. States his last 6 weeks ago, he said he was sad and depressed that time but not at this time. He is on Seroquel which is helping a lot. He reports he has an appointment to follow up with [facility] social sciences lecturer or another group. He is here with his mother who states she lives with him and he is not in her opinion a danger to himself. Limitations: no limitations Course Vital Signs 01/10/18 01/10/18 01/10/18 20:54 22:14 23:05 Temperature 98.4 F Pulse Rate 101 H Respiratory 18 16 16 Rate Blood Pressure 143/84 O2 Sat by Pulse 99 Oximetry Medical Decision Making - Medical Decision Making Medical decision making; is a 47-year-old male who is here with his mother. His and daughter called police because they thought he was a harm to himself. He denies this. He states she walked out of 6 weeks ago and was that he is not depressed or suicidal at this time. His mother who lives on the floor below him states he is doing much better since the separation. She does not feel as though he is a harm to himself. The patient's making efforts to follow-up with outpatient community mental health or environmental services associate. His family doctors put him on Seroquel which she states has worked wonderfully for the last week. He states he sleeping well feeling better. Patient denies being homicidal or suicidal. Urine drug screen shows positive for antidepressants, benzodiazepines and THC which the patient admits to using. Patient was evaluated by the psychiatric nurse from [facility]. She spoke with the on-call psychiatrist. They have decided to allow the patient go home care of himself and his mother. He does have planned follow-up with outpatient mental health services. Advised return emergency room as needed - Lab Data Lab Results 01/10/18 Range/Units 20:44 Urine Opiates Screen Not Detected (NotDetected) Ur Oxycodone Screen Not Detected (NotDetected) Urine Methadone Screen Not Detected (NotDetected) Ur Propoxyphene Screen Not Detected (NotDetected) Ur Barbiturates Screen Not Detected (NotDetected) U Tricyclic Antidepress Detected H (NotDetected) Ur Phencyclidine Scrn Not Detected (NotDetected) Ur Amphetamines Screen Not Detected (NotDetected) U Methamphetamines Scrn Not Detected (NotDetected) U Benzodiazepines Scrn Detected H (NotDetected) Urine Cocaine Screen Not Detected (NotDetected) U Marijuana (THC) Screen Detected H (NotDetected) Disposition Clinical Impression: Psychiatric exam requested by authority Disposition: HOME SELF-CARE Condition: Fair Instructions: Depression (ED), Anxiety (ED) Additional Instructions: Follow-up with outpatient community mental health services. Also follow-up with family physician. Return emergency room if become depressed. Is patient prescribed a controlled substance at d/c from ED?: No Referrals: Kirit Plaza MD [Primary Care Provider] - 1-2 days Time of Disposition: 23:58
[2018-01-10 22:55] LABS: Amphetamine Screen,Urine Not Detected (NotDetected); Barbiturate Screen,Urine Not Detected (NotDetected); Benzodiazepines Screen,Urine Detected (NotDetected); Cocaine Screen,Urine Not Detected (NotDetected); Methadone Screen, Urine Not Detected (NotDetected); Opiate Screen,Urine Not Detected (NotDetected); Oxycodone Screen, Urine Not Detected (NotDetected); Phencyclidine Screen,Urine Not Detected (NotDetected); Tricyclic Antidepressant,Urine Detected (NotDetected); Urn Cannabinoid Scrn Detected (NotDetected)
[2018-01-11 00:16] VITALS: BP 144/84; PULSE 85; RESP 18; TEMP 98.7
== END 2018-01-11 00:15 | disposition home or self-care (01) ==
LOC: EC 20:18
DX: Z04.6 Encounter for general psychiatric examination, requested by authority (principal); E11.9 Type 2 diabetes mellitus without complications; I25.2 Old myocardial infarction; M19.90 Unspecified osteoarthritis, unspecified site; F32.9 Major depressive disorder, single episode, unspecified; F41.9 Anxiety disorder, unspecified; F17.200 Nicotine dependence, unspecified, uncomplicated; Z79.899 Other long term (current) drug therapy; Z79.84 Long term (current) use of oral hypoglycemic drugs; Z88.8 Allergy status to other drugs, medicaments and biological substances; Z95.5 Presence of coronary angioplasty implant and graft; Z82.49 Family history of ischemic heart disease and other diseases of the circulatory system
CPT/HCPCS: 80306; 82075; 99284

== ENCOUNTER 2018-04-01 14:47 | Observation (INO) | payer OTHER ==
[2018-04-01] MEDS ORDERED: SODIUM CHLORIDE 0.9% 500 ML 500 ML IV STA (15:09)
--- NOTE | 2018-04-01 15:14 | ED ---
General Adult HPI - General Chief complaint: Dizziness Stated complaint: Dizziness, high heart rate Time Seen by Provider: 04/01/18 14:50 Source: patient, RN notes reviewed Mode of arrival: wheelchair Limitations: no limitations - History of Present Illness Initial comments: This is a 47-year-old male who presents emergency Department with a past medical history significant for smoking diabetes hypertension high cholesterol and 2 heart attacks with 2 stent placements. Patient states today he feels extremely weak and he feels as though his heart is been racing. Patient felt as though he might pass out. Patient also states he was very short of breath. Patient states this all might be his anxiety. Patient states he feels weak like he just wants laid on go to sleep. Patient denies any diaphoretic episodes. Patient denies any nausea or vomiting. Patient denies any abdominal pain. Patient states when he was walking in the hospital he felt as though he was stumbling because he is becoming so weak. Patient denies any chest pain. Patient denies any headache patient denies numbness weakness. She denies any leg swelling or calf tenderness. - Related Data Home Medications Medication Instructions Recorded Confirmed Cyclobenzaprine [Flexeril] 10 mg PO TID 11/08/15 04/01/18 Nateglinide 60 mg PO AC-TID 04/01/18 04/01/18 PARoxetine HCL [Paxil] 40 mg PO DAILY 04/01/18 04/01/18 QUEtiapine [SEROquel] 50 mg PO BID 04/01/18 04/01/18 buPROPion XL [Wellbutrin Xl] 150 mg PO DAILY 04/01/18 04/01/18 sitaGLIPtin [Januvia] 100 mg PO DAILY 04/01/18 04/01/18 Previous Rx's Medication Instructions Recorded Atorvastatin [Lipitor] 80 mg PO HS #90 tab 10/13/14 Clopidogrel [Plavix] 75 mg PO DAILY #30 tab 07/27/16 Allergies Allergy/AdvReac Type Severity Reaction Status Date / Time diclofenac sodium Allergy Swelling Verified 04/01/18 15:27 [From Arthrotec] misoprostol [From Arthrotec] Allergy Swelling Verified 04/01/18 15:27 Review of Systems ROS Statement: Those systems with pertinent positive or pertinent negative responses have been documented in the HPI. ROS Other: All systems not noted in ROS Statement are negative. Past Medical History Past Medical History: Asthma, Chest Pain / Angina, Diabetes Mellitus, GERD/ Reflux, Hyperlipidemia, Hypertension, Myocardial Infarction ([place]), Osteoarthritis (OA) Additional Past Medical History / Comment(s): ARTHRITIS multiple joints, CHRONIC PAIN, pinched nerves lumbar region, migraines. Last Myocardial Infarction Date:: 07/2016 History of Any Multi-Drug Resistant Organisms: None Reported Past Surgical History: Heart Catheterization With Stent, Orthopedic Surgery Additional Past Surgical History / Comment(s): 10/10/14 PTCA with stent to proximal LAD, LEFT KNEE ARTHROSCOPY, R wrist CARPAL TUNNEL, LEFT and right HAND TRIGGER FINGER RELEASE, pain clinic procedures-lumbar/sacral areas. Past Anesthesia/Blood Transfusion Reactions: Postoperative Nausea & Vomiting ( PONV) Date of Last Stent Placement:: 2014 Past Psychological History: Anxiety, Depression Smoking Status: Current every day smoker Past Alcohol Use History: None Reported Past Drug Use History: Marijuana - Past Family History Father Family Medical History: Coronary Artery Disease (CAD) Additional Family Medical History / Comment(s): Father at the age of 63 yrs from cardiac aneurysm. Mother Family Medical History: Diabetes Mellitus, Hypertension, Osteoarthritis (OA) Additional Family Medical History / Comment(s): Back problems General Exam - General Exam Comments Initial Comments: GENERAL: Patient is well-developed and well-nourished. Patient is nontoxic and well- hydrated and is in mild distress. ENT: Neck is soft and supple. No significant lymphadenopathy is noted. Oropharynx is clear. Moist mucous membranes. Neck has full range of motion without eliciting any pain. EYES: The sclera were anicteric and conjunctiva were pink and moist. Extraocular movements were intact and pupils were equal round and reactive to light. Eyelids were unremarkable. PULMONARY: Unlabored respirations. Good breath sounds bilaterally. No audible rales rhonchi or wheezing was noted. CARDIOVASCULAR:bilaterally Patient is tachycardic at about 100 beats a minute ABDOMEN: Soft and nontender with normal bowel sounds. No palpable organomegaly was noted. There is no palpable pulsatile mass. SKIN: Skin is clear with no lesions or rashes and otherwise unremarkable. NEUROLOGIC: Patient is alert and oriented x3. Cranial nerves II through XII are grossly intact. Motor and sensory are also intact. Normal speech, volume and content. Symmetrical smile. MUSCULOSKELETAL: Normal extremities with adequate strength and full range of motion. No lower extremity swelling or edema. No calf tenderness. LYMPHATICS: No significant lymphadenopathy is noted PSYCHIATRIC: Normal psychiatric evaluation. Limitations: no limitations Course Vital Signs 04/01/18 04/01/18 04/01/18 14:50 16:18 16:30 Temperature 97.5 F L Pulse Rate 103 H 93 87 Respiratory 18 19 18 Rate Blood Pressure 135/81 132/78 O2 Sat by Pulse 99 96 96 Oximetry 04/01/18 17:00 Temperature Pulse Rate 96 Respiratory 18 Rate Blood Pressure 132/78 O2 Sat by Pulse 97 Oximetry Medical Decision Making - Medical Decision Making EKG shows normal sinus rhythm at 93 bpm [place] interval 234 QRS is 88 QT interval 358 QTC is 445. Patient's EKG shows no ST segment elevation or depression or T wave abnormalities are noted. Chest x-ray shows no acute abnormality. Because the near syncopal episode and his significant cardiac history were indicated the patient in to rule out ACS. - Lab Data Result diagrams: 04/01/18 15:20 04/01/18 15:20 Lab Results 04/01/18 04/01/18 04/01/18 Range/Units 15:20 15:20 15:20 WBC 8.1 (3.8-10.6) k/uL RBC 5.13 (4.30-5.90) m/uL Hgb 15.6 (13.0-17.5) gm/dL Hct 47.9 (39.0-53.0) % MCV 93.4 (80.0-100.0) fL MCH 30.4 (25.0-35.0) pg MCHC 32.6 (31.0-37.0) g/dL RDW 13.2 (11.5-15.5) % Plt Count 282 (150-450) k/uL Neutrophils % 62 % Lymphocytes % 26 % Monocytes % 5 % Eosinophils % 4 % Basophils % 1 % Neutrophils # 5.0 (1.3-7.7) k/uL Lymphocytes # 2.1 (1.0-4.8) k/uL Monocytes # 0.4 (0-1.0) k/uL Eosinophils # 0.3 (0-0.7) k/uL Basophils # 0.1 (0-0.2) k/uL PT (9.0-12.0) sec INR (<1.2) APTT (22.0-30.0) sec Sodium 137 (137-145) mmol/L Potassium 4.1 (3.5-5.1) mmol/L Chloride 107 (98-107) mmol/L Carbon Dioxide 21 L (22-30) mmol/L Anion Gap 9 mmol/L BUN 16 (9-20) mg/dL Creatinine 0.68 (0.66-1.25) mg/dL Est GFR (CKD-EPI)AfAm >90 (>60 ml/min/1.73 sqM) Est GFR (CKD-EPI)NonAf >90 (>60 ml/min/1.73 sqM) Glucose 225 H (74-99) mg/dL Calcium 9.3 (8.4-10.2) mg/dL Magnesium 1.6 (1.6-2.3) mg/dL Total Bilirubin 0.3 (0.2-1.3) mg/dL AST 18 (17-59) U/L ALT 23 (21-72) U/L Alkaline Phosphatase 109 (38-126) U/L Total Creatine Kinase 188 H (55-170) U/L CK-MB (CK-2) 3.5 H (0.0-2.4) ng/mL CK-MB (CK-2) Rel Index 1.9 Troponin I <0.012 (0.000-0.034) ng/mL Total Protein 6.6 (6.3-8.2) g/dL Albumin 3.6 (3.5-5.0) g/dL 04/01/18 Range/Units 15:20 WBC (3.8-10.6) k/uL RBC (4.30-5.90) m/uL Hgb (13.0-17.5) gm/dL Hct (39.0-53.0) % MCV (80.0-100.0) fL MCH (25.0-35.0) pg MCHC (31.0-37.0) g/dL RDW (11.5-15.5) % Plt Count (150-450) k/uL Neutrophils % % Lymphocytes % % Monocytes % % Eosinophils % % Basophils % % Neutrophils # (1.3-7.7) k/uL Lymphocytes # (1.0-4.8) k/uL Monocytes # (0-1.0) k/uL Eosinophils # (0-0.7) k/uL Basophils # (0-0.2) k/uL PT 9.3 (9.0-12.0) sec INR 0.9 (<1.2) APTT 23.4 (22.0-30.0) sec Sodium (137-145) mmol/L Potassium (3.5-5.1) mmol/L Chloride (98-107) mmol/L Carbon Dioxide (22-30) mmol/L Anion Gap mmol/L BUN (9-20) mg/dL Creatinine (0.66-1.25) mg/dL Est GFR (CKD-EPI)AfAm (>60 ml/min/1.73 sqM) Est GFR (CKD-EPI)NonAf (>60 ml/min/1.73 sqM) Glucose (74-99) mg/dL Calcium (8.4-10.2) mg/dL Magnesium (1.6-2.3) mg/dL Total Bilirubin (0.2-1.3) mg/dL AST (17-59) U/L ALT (21-72) U/L Alkaline Phosphatase (38-126) U/L Total Creatine Kinase (55-170) U/L CK-MB (CK-2) (0.0-2.4) ng/mL CK-MB (CK-2) Rel Index Troponin I (0.000-0.034) ng/mL Total Protein (6.3-8.2) g/dL Albumin (3.5-5.0) g/dL Disposition Clinical Impression: Near syncope Disposition: ADMITTED IP TO THIS [facility] Referrals: None,Stated [Primary Care Provider] - 1-2 days Time of Disposition: 17:17
[2018-04-01 15:31] LABS: Basophils # (A) 0.1 k/uL (0-0.2); Basophils % (A) 1 %; Eosinophils # (A) 0.3 k/uL (0-0.7); Eosinophils % (A) 4 %; HCT 47.9 % (39.0-53.0); HGB 15.6 gm/dL (13.0-17.5); Lymphocytes # (A) 2.1 k/uL (1.0-4.8); Lymphocytes % (A) 26 %; MCH 30.4 pg (25.0-35.0); MCHC 32.6 g/dL (31.0-37.0); MCV 93.4 fL (80.0-100.0); Mean Platelet Volume 6.6; Monocytes # (A) 0.4 k/uL (0-1.0); Monocytes % (A) 5 %; Neutrophils % (A) 62 %; Platelet Count 282 k/uL (150-450); RBC 5.13 m/uL (4.30-5.90); RDW 13.2 % (11.5-15.5); WBC 8.1 k/uL (3.8-10.6)
[2018-04-01 15:41] LABS: INR 0.9 (<1.2); Partial Thromboplastin Time 23.4 sec (22.0-30.0); Prothrombin Time 9.3 sec (9.0-12.0)
[2018-04-01 15:42] LABS: ALT 23 U/L (21-72); AST 18 U/L (17-59); Albumin 3.6 g/dL (3.5-5.0); Alkaline Phosphatase 109 U/L (38-126); Anion Gap 9 mmol/L; Blood Urea Nitrogen 16 mg/dL (9-20); Calcium 9.3 mg/dL (8.4-10.2); Carbon Dioxide 21 mmol/L (22-30); Chloride 107 mmol/L (98-107); Glucose 225 mg/dL (74-99); Magnesium 1.6 mg/dL (1.6-2.3); Potassium 4.1 mmol/L (3.5-5.1); Sodium 137 mmol/L (137-145); Total Bilirubin 0.3 mg/dL (0.2-1.3); Total Protein 6.6 g/dL (6.3-8.2)
--- NOTE | 2018-04-01 16:01 | XR ---
EXAMINATION TYPE: XR chest 2V DATE OF EXAM: 04/01/2018 COMPARISON: Prior chest x-ray 07/25/2016 HISTORY: Chest pain, shortness of breath TECHNIQUE: Frontal and lateral views of the chest are obtained. FINDINGS: There are overlying cardiac leads. Prominent lung lines are compatible with underlying COPD . There is no focal air space opacity, pleural effusion, or pneumothorax seen. The cardiac silhouet te size is within normal limits. The osseous structures are intact. IMPRESSION: No acute cardiopulmonary process.
[2018-04-01 16:04] LABS: Creatine Kinase 188 U/L (55-170)
[2018-04-01 16:18] LABS: Creatine Kinase MB 3.5 ng/mL (0.0-2.4); Troponin I <0.012 ng/mL (0.000-0.034)
[2018-04-01] MEDS ORDERED: LORazepam 2 MG/ML INJ IV STA (16:41)
[2018-04-01] MEDS ORDERED: NITROGLYCERIN SL TABS 0.4 MG TAB SUBLINGUAL PRN (17:20)
[2018-04-01] MEDS ORDERED: ACETAMINOPHEN TAB 325 MG TAB PO PRN (18:07)
[2018-04-01] MEDS ORDERED: NALOXONE 0.4 MG/ML 1 ML VIAL IV PRN (18:07)
[2018-04-01] MEDS: NITROGLYCERIN OINT 1 INCH/GM PACKET TOPICAL SCH (18:24)
[2018-04-01] MEDS: HYDROcodone/APAP 5-325MG 1 EACH TAB PO PRN (18:28)
--- NOTE | 2018-04-01 18:31 | P.HPIM ---
History of Present Illness H&P Date: 04/01/18 Chief Complaint: Palpitations, shortness of breath, lightheadedness 47-year-old male with past medical history of hypertension, type 2 diabetes mellitus, hyperlipidemia, anxiety and depression, previous history of AK with stents placed (latest one in the RCA on July 2016) presents the ED for constellation of symptoms. Patient is unable to effectively describe his symptomology. Patient states he woke up this afternoon around 12 PM feeling shortness of breath, lightheadedness, and palpitations. Patient denied any chest pain but did report a pressure-like sensation in his chest. Patient states he "feels like passing out". Patient states the symptoms continued to get worse, prompting him to come to the ED. Patient reports 2 MIs in the past, most recently had a stent placed in the RCA and July 2016. Patient states he has been lost to follow-up in the recent months. He was previously placed on aspirin and Plavix, but he has not been able to take his medications in the past few weeks. Patient also has a history of mood disorder, has been placed on Seroquel and Paxil in the past. He does not currently see a psychiatrist. Patient states that he has been experiencing a great deal of stress at this time with the divorce of his , might have suffered an panic attack. In the ED, troponin was negative with EKG showing normal sinus rhythm. CMP was unremarkable except for bicarbonate was 21 and glucose of 225. CPK is 188. CBC is unremarkable. Chest x-ray is negative. Patient is admitted to rule out acute coronary syndrome. Past Medical History Past Medical History: Asthma, Chest Pain / Angina, Diabetes Mellitus, GERD/ Reflux, Hyperlipidemia, Hypertension, Myocardial Infarction (AK), Osteoarthritis (OA) Additional Past Medical History / Comment(s): ARTHRITIS multiple joints, CHRONIC PAIN, pinched nerves lumbar region, migraines. Last Myocardial Infarction Date:: 07/2016 History of Any Multi-Drug Resistant Organisms: None Reported Past Surgical History: Heart Catheterization With Stent, Orthopedic Surgery Additional Past Surgical History / Comment(s): 10/10/14 PTCA with stent to proximal LAD, LEFT KNEE ARTHROSCOPY, R wrist CARPAL TUNNEL, LEFT and right HAND TRIGGER FINGER RELEASE, pain clinic procedures-lumbar/sacral areas. Past Anesthesia/Blood Transfusion Reactions: Postoperative Nausea & Vomiting ( PONV) Date of Last Stent Placement:: 2014 Past Psychological History: Anxiety, Depression Smoking Status: Current every day smoker Past Alcohol Use History: None Reported Past Drug Use History: Marijuana - Past Family History Father Family Medical History: Coronary Artery Disease (CAD) Additional Family Medical History / Comment(s): Father at the age of 63 yrs from cardiac aneurysm. Mother Family Medical History: Diabetes Mellitus, Hypertension, Osteoarthritis (OA) Additional Family Medical History / Comment(s): Back problems Medications and Allergies Home Medications Medication Instructions Recorded Confirmed Type Atorvastatin [Lipitor] 80 mg PO HS #90 tab 10/13/14 04/01/18 Rx Cyclobenzaprine [Flexeril] 10 mg PO TID 11/08/15 04/01/18 History Clopidogrel [Plavix] 75 mg PO DAILY #30 tab 07/27/16 04/01/18 Rx Nateglinide 60 mg PO AC-TID 04/01/18 04/01/18 History PARoxetine HCL [Paxil] 40 mg PO DAILY 04/01/18 04/01/18 History QUEtiapine [SEROquel] 50 mg PO BID 04/01/18 04/01/18 History buPROPion XL [Wellbutrin Xl] 150 mg PO DAILY 04/01/18 04/01/18 History sitaGLIPtin [Januvia] 100 mg PO DAILY 04/01/18 04/01/18 History Allergies Allergy/AdvReac Type Severity Reaction Status Date / Time diclofenac sodium Allergy Swelling Verified 04/01/18 15:27 [From Arthrotec] misoprostol [From Arthrotec] Allergy Swelling Verified 04/01/18 15:27 Physical Exam Vitals: Vital Signs Temp Pulse Resp BP Pulse Ox 04/01/18 18:02 98.3 F 92 18 125/70 97 04/01/18 17:00 96 18 132/78 97 04/01/18 16:30 87 18 132/78 96 04/01/18 16:18 93 19 96 04/01/18 14:50 97.5 F L 103 H 18 135/81 99 Intake and Output 04/01/18 04/01/18 04/01/18 06:59 14:59 22:59 Other: Weight 113.398 kg General: [non toxic], [no distress], [appears at stated age] Derm: [warm], [dry] Head: [atraumatic], [normocephalic], [symmetric] Eyes: [EOMI], [no lid lag], [anicteric sclera] Mouth: [no lip lesion], [mucus membranes moist] Cardiovascular: [S1S2 reg], [no murmur], [positive posterior tibial pulse bilateral], Lungs: [CTA bilateral], [no rhonchi, no rales] , [no accessory muscle use] Abdominal: [soft], [ nontender to palpation], [no guarding], [no appreciable organomegaly] Ext: [no gross muscle atrophy], [no edema], [no contractures] Neuro: [ CN II-XI grossly intact], [no focal neuro deficits] Psych: [Alert], [oriented], [appropriate affect] Results CBC & Chem 7: 04/01/18 15:20 04/01/18 15:20 Labs: Abnormal Lab Results - Last 24 Hours (Table) 04/01/18 04/01/18 Range/Units 15:20 15:20 Carbon Dioxide 21 L (22-30) mmol/L Glucose 225 H (74-99) mg/dL Total Creatine Kinase 188 H (55-170) U/L CK-MB (CK-2) 3.5 H (0.0-2.4) ng/mL Thrombosis Risk Factor Assmnt - Choose All That Apply Any of the Below Risk Factors Present?: Yes Each Factor Represents 1 point: Age 41-60 years Thrombosis Risk Factor Assessment Total Risk Factor Score: 1 Thrombosis Risk Factor Assessment Level: Low Risk Assessment and Plan Assessment: Assessment and Plan 1. Chest pressure: Symptoms resemble a panic attack. Less likely to be ACS but + risk factors in non compliance with DAPT. RCA stent placed in 07/2016. Trop < 0.012 x 1, EKG shows NSR. CXR is negative. Pain management with Tylenol, Nitrostat and Crane PRN. Restart ASA 81 mg PO QD, Lipitor 80 mg PO QHS and Plavix 75 mg PO QD. Telemetry monitoring. Trend 2 Trop/EKG to r/o ACS. FU Lipid panel, Echocardiogram, Cardiology 2. Anxiety and Mood disorder: Will continue Seroquel 50 mg PO BID, Bupropion 150 mg PO QD, and Paxil 40 mg PO QD. FU Psychiatry 3. DM: POC glucose 225. ISS. Accuchecks. Hypoglycemic precautions. Low carb diet. FU A1c. 4. DVT/GI Prophylaxis: Lovenox 40 mg SUBCUT QD. Protonix 40 mg PO QD.
[2018-04-01 20:42] LABS: Glucose,Whole Blood 127 mg/dL (75-99)
[2018-04-01] MEDS ORDERED: ATORVASTATIN 80 MG TAB PO SCH (21:00)
[2018-04-01] MEDS: QUEtiapine 50 MG TAB PO SCH (21:27)
[2018-04-01 22:17] LABS: Creatine Kinase 150 U/L (55-170)
[2018-04-01 22:29] LABS: Creatine Kinase MB 3.3 ng/mL (0.0-2.4); Troponin I <0.012 ng/mL (0.000-0.034)
[2018-04-01 23:24] LABS: Cholesterol 193 mg/dL (<200); HDL Cholesterol 32 mg/dL (40-60); LDL Cholesterol,Calculated 94 mg/dL (0-99); Triglycerides 333 mg/dL (<150)
[2018-04-02 00:38] VITALS: RESP 16
[2018-04-02] MEDS: NITROGLYCERIN OINT 1 INCH/GM PACKET TOPICAL SCH ×2 (02:22→04:57)
[2018-04-02 03:32] LABS: Creatine Kinase 141 U/L (55-170)
[2018-04-02 03:45] LABS: Creatine Kinase MB 3.1 ng/mL (0.0-2.4); Troponin I <0.012 ng/mL (0.000-0.034)
[2018-04-02 06:52] LABS: Glucose,Whole Blood 99 mg/dL (75-99)
[2018-04-02] MEDS ORDERED: PANTOPRAZOLE 40 MG TABLET PO SCH (07:30)
[2018-04-02] MEDS ORDERED: INSULIN ASPART 100 UNIT/ML 1 ML 10 ML VIAL SQ SCH (07:30)
[2018-04-02] MEDS ORDERED: DOBUTamine DRIP for NUC MED 500 MG in DEXTROSE/WATER 1 250ML.BAG IV ONE (08:41)
[2018-04-02] MEDS ORDERED: ASPIRIN 325 MG TAB PO SCH (09:00)
[2018-04-02] MEDS ORDERED: CLOPIDOGREL 75 MG TAB PO SCH (09:00)
[2018-04-02] MEDS ORDERED: ENOXAPARIN 40 MG/0.4 ML SYRINGE SQ SCH (09:00)
[2018-04-02] MEDS ORDERED: ASPIRIN 81 MG PO SCH (09:00)
[2018-04-02] MEDS ORDERED: buPROPion XL 150 MG TAB.ER.24H PO SCH (09:00)
[2018-04-02] MEDS ORDERED: LISINOPRIL 2.5 MG TAB PO SCH (09:00)
[2018-04-02] MEDS ORDERED: PARoxetine 20 MG TAB PO SCH (09:00)
--- NOTE | 2018-04-02 09:11 | P.PN ---
Subjective Progress Note Date: 04/02/18 Principal diagnosis: chest pressure Patient was seen and examined. No acute events overnight. Patient continues to complain of a pressure-like sensation in his chest. He does deny chest pain. He denies any more feelings of shortness of breath, lightheadedness and palpitations. Patient reiterates his stress at home, recent divorce. He is currently getting an echocardiogram at bedside, plans for stress test. He has noncompliance with his DAPT. Patient reports previously being hospitalized involuntarily for suicidal ideation. He is also being getting Seroquel through his PCP for hallucinations. He has not seen a psychiatrist in 2 months. Objective - Vital Signs Vital signs: Vital Signs Temp 98.7 F 04/02/18 07:37 Pulse 77 04/02/18 07:37 Resp 16 04/02/18 07:37 BP 129/77 04/02/18 07:37 Pulse Ox 97 04/02/18 07:37 Intake & Output 04/01/18 04/02/18 04/02/18 18:59 06:59 18:59 Weight 115.5 kg Other: # Voids 2 - Exam General: [non toxic], [no distress], [appears at stated age] Derm: [warm], [dry] Head: [atraumatic], [normocephalic], [symmetric] Eyes: [EOMI], [no lid lag], [anicteric sclera] Mouth: [no lip lesion], [mucus membranes moist] Cardiovascular: [S1S2 reg], [no murmur], [positive DP pulse bilateral] Lungs: [CTA bilateral], [no rhonchi, no rales] , [no accessory muscle use] Abdominal: [soft], [ nontender to palpation], [no guarding], [no appreciable organomegaly] Ext: [no gross muscle atrophy], [no edema], [no contractures] Neuro: [no focal neuro deficits] Psych: [Alert], [oriented], [appropriate affect] - Labs CBC & Chem 7: 04/01/18 15:20 04/01/18 15:20 Labs: Abnormal Lab Results - Last 24 Hours (Table) 04/01/18 04/01/18 04/01/18 Range/Units 15:20 15:20 15:20 Carbon Dioxide 21 L (22-30) mmol/L Glucose 225 H (74-99) mg/dL POC Glucose (mg/dL) (75-99) mg/dL Total Creatine Kinase 188 H (55-170) U/L CK-MB (CK-2) 3.5 H (0.0-2.4) ng/mL Triglycerides 333 H (<150) mg/dL HDL Cholesterol 32 L (40-60) mg/dL 04/01/18 04/01/18 04/02/18 Range/Units 20:40 21:45 03:04 Carbon Dioxide (22-30) mmol/L Glucose (74-99) mg/dL POC Glucose (mg/dL) 127 H (75-99) mg/dL Total Creatine Kinase (55-170) U/L CK-MB (CK-2) 3.3 H 3.1 H (0.0-2.4) ng/mL Triglycerides (<150) mg/dL HDL Cholesterol (40-60) mg/dL Assessment and Plan Assessment: Assessment and Plan 1. Chest pressure: Symptoms resemble a panic attack. Less likely to be ACS but + risk factors in non compliance with DAPT. RCA stent placed in 07/2016, LAD in 2014. Trop < 0.012 x 3, EKG shows NSR. CXR is negative. Pain management with Tylenol, Nitrostat and Roy PRN. Restart ASA 81 mg PO QD, Lipitor 80 mg PO QHS and Plavix 75 mg PO QD. Telemetry monitoring. FU Echocardiogram, stress test, Cardiology consult 2. Anxiety and Mood disorder: Will continue Seroquel 50 mg PO BID, Bupropion 150 mg PO QD, and Paxil 40 mg PO QD. FU Psychiatry 3. Hyperlipidemia: Lipid panel shows elevated TG at 333, T. Chol 193 and LDL 94. Continue Lipitor 80 mg PO QHS. Cardiac diet. 4. DM: POC glucose 99. ISS. Accuchecks. Hypoglycemic precautions. Low carb diet. FU A1c. 5. DVT/GI Prophylaxis: Lovenox 40 mg SUBCUT QD. Protonix 40 mg PO QD. Patient reports resolution of most of his symptoms, continues to have chest pressure like symptoms. Cardiology consulted, pending Echo and stress test. Psychiatry consult pending.
--- NOTE | 2018-04-02 09:48 | P.CRDCN ---
<JollyJack - Last Filed: 04/02/18 09:46> History of Present Illness History of present illness: Patient admitted with atypical chest discomfort normal cardiac enzymes He has known coronary artery disease status post stenting Noncompliant with his medications Noncompliant with visits Patient of Dr. Courtney Last coronary stenting in 2016, over a year back Continues to smoke Suggest smoking cessation and stress testing today Past Medical History Past Medical History: Asthma, Chest Pain / Angina, Diabetes Mellitus, GERD/ Reflux, Hyperlipidemia, Hypertension, Myocardial Infarction ([place]), Osteoarthritis (OA) Additional Past Medical History / Comment(s): ARTHRITIS multiple joints, CHRONIC PAIN, pinched nerves lumbar region, migraines. Last Myocardial Infarction Date:: 07/2016 History of Any Multi-Drug Resistant Organisms: None Reported Past Surgical History: Heart Catheterization With Stent, Orthopedic Surgery Additional Past Surgical History / Comment(s): 2016 heart cath w/stent, 10/10/14 PTCA with stent to proximal LAD, LEFT KNEE ARTHROSCOPY, R wrist CARPAL TUNNEL, LEFT and right HAND TRIGGER FINGER RELEASE, pain clinic procedures-lumbar/ sacral areas. Past Anesthesia/Blood Transfusion Reactions: Postoperative Nausea & Vomiting ( PONV) Additional Past Anesthesia/Blood Transfusion Reaction / Comment(s): never recieved blood Date of Last Stent Placement:: 2014 Smoking Status: Current every day smoker - Past Family History Father Family Medical History: Congestive Heart Failure (CHF), Coronary Artery Disease (CAD) Additional Family Medical History / Comment(s): Father at the age of 63 yrs from cardiac aneurysm. Mother Family Medical History: Diabetes Mellitus, Hypertension, Osteoarthritis (OA) Additional Family Medical History / Comment(s): Back problems Medications and Allergies Home Medications Medication Instructions Recorded Confirmed Type Cyclobenzaprine [Flexeril] 10 mg PO TID 11/08/15 04/01/18 History Nateglinide 60 mg PO AC-TID 04/01/18 04/01/18 History PARoxetine HCL [Paxil] 40 mg PO DAILY 04/01/18 04/01/18 History QUEtiapine [SEROquel] 50 mg PO BID 04/01/18 04/01/18 History buPROPion XL [Wellbutrin Xl] 150 mg PO DAILY 04/01/18 04/01/18 History sitaGLIPtin [Januvia] 100 mg PO DAILY 04/01/18 04/01/18 History Aspirin 81 mg PO DAILY chew 04/02/18 Rx Atorvastatin [Lipitor] 80 mg PO HS #90 tab 04/02/18 Rx Lisinopril [Zestril] 2.5 mg PO DAILY #90 tab 04/02/18 Rx Allergies Allergy/AdvReac Type Severity Reaction Status Date / Time diclofenac sodium Allergy Swelling Verified 04/01/18 15:27 [From Arthrotec] misoprostol [From Arthrotec] Allergy Swelling Verified 04/01/18 15:27 Physical Exam Vitals: Vital Signs Temp Pulse Pulse Pulse Resp BP BP 04/02/18 07:37 98.7 F 77 16 129/77 04/02/18 04:51 98.8 F 66 16 149/88 04/02/18 04:00 16 04/02/18 00:00 98.0 F 76 16 128/76 04/01/18 20:01 98.0 F 87 15 129/80 04/01/18 20:00 15 04/01/18 18:11 97.7 F 71 16 146/80 04/01/18 18:02 98.3 F 92 18 125/70 04/01/18 17:00 96 18 132/78 04/01/18 16:30 87 18 132/78 04/01/18 16:18 93 19 04/01/18 14:50 97.5 F L 103 H 18 135/81 Pulse Ox 04/02/18 07:37 97 04/02/18 04:51 98 04/02/18 04:00 04/02/18 00:00 99 04/01/18 20:01 98 04/01/18 20:00 04/01/18 18:11 100 04/01/18 18:02 97 04/01/18 17:00 97 04/01/18 16:30 96 04/01/18 16:18 96 04/01/18 14:50 99 Intake and Output 04/01/18 04/02/18 04/02/18 22:59 06:59 14:59 Other: # Voids 2 Weight 115.5 kg Results 04/01/18 15:20 04/01/18 15:20 Cardiac Enzymes 04/01/18 04/01/18 04/01/18 Range/Units 15:20 15:20 21:45 AST 18 (17-59) U/L CK-MB (CK-2) 3.5 H 3.3 H (0.0-2.4) ng/mL Troponin I <0.012 <0.012 (0.000-0.034) ng/mL 04/02/18 Range/Units 03:04 AST (17-59) U/L CK-MB (CK-2) 3.1 H (0.0-2.4) ng/mL Troponin I <0.012 (0.000-0.034) ng/mL Coagulation 04/01/18 Range/Units 15:20 PT 9.3 (9.0-12.0) sec APTT 23.4 (22.0-30.0) sec Lipids 04/01/18 Range/Units 15:20 Triglycerides 333 H (<150) mg/dL Cholesterol 193 (<200) mg/dL HDL Cholesterol 32 L (40-60) mg/dL CBC 04/01/18 Range/Units 15:20 WBC 8.1 (3.8-10.6) k/uL RBC 5.13 (4.30-5.90) m/uL Hgb 15.6 (13.0-17.5) gm/dL Hct 47.9 (39.0-53.0) % Plt Count 282 (150-450) k/uL Comprehensive Metabolic Panel 04/01/18 Range/Units 15:20 Sodium 137 (137-145) mmol/L Potassium 4.1 (3.5-5.1) mmol/L Chloride 107 (98-107) mmol/L Carbon Dioxide 21 L (22-30) mmol/L BUN 16 (9-20) mg/dL Creatinine 0.68 (0.66-1.25) mg/dL Glucose 225 H (74-99) mg/dL Calcium 9.3 (8.4-10.2) mg/dL AST 18 (17-59) U/L ALT 23 (21-72) U/L Alkaline Phosphatase 109 (38-126) U/L Total Protein 6.6 (6.3-8.2) g/dL Albumin 3.6 (3.5-5.0) g/dL Current Medications Generic Name Dose Route Start Last Admin Trade Name Freq PRN Reason Stop Dose Admin Acetaminophen 650 mg 04/01/18 18:07 Tylenol Tab PO Q6HR PRN Mild Pain or Fever > 100.5 Hydrocodone Bitart/Acetaminophen 1 each 04/01/18 18:07 04/01/18 18:28 Stuart 5-325 PO 1 each Q4HR PRN Administration Moderate Pain Aspirin 81 mg 04/02/18 09:00 Aspirin PO DAILY [facility] Atorvastatin Calcium 80 mg 04/01/18 21:00 04/01/18 19:46 Lipitor PO 80 mg HS [facility] Administration Bupropion HCl 150 mg 04/02/18 09:00 Wellbutrin Xl PO DAILY [facility] Enoxaparin Sodium 40 mg 04/02/18 09:00 Lovenox SQ DAILY [facility] Dobutamine HCl/Dextrose 500 mg 250 mls @ 34.65 mls/hr 04/02/18 08:41 / IV Solution IV 04/02/18 15:53 .Q7H13M ONE Protocol 10 MCG/KG/MIN Insulin Aspart 0 unit 04/02/18 07:30 Novolog SQ AC-TID [facility] Protocol Lisinopril 2.5 mg 04/02/18 09:00 Zestril PO DAILY [facility] Naloxone HCl 0.2 mg 04/01/18 18:07 Narcan IV Q2M PRN Opioid Reversal Nitroglycerin 0.4 mg 04/01/18 17:20 Nitrostat SUBLINGUAL Q5M PRN Chest Pain Pantoprazole Sodium 40 mg 04/02/18 07:30 Protonix PO AC-BRKFST [facility] Paroxetine HCl 40 mg 04/02/18 09:00 Paxil PO DAILY [facility] Quetiapine Fumarate 50 mg 04/01/18 21:00 04/01/18 21:27 Seroquel PO 50 mg BID [facility] Administration Intake and Output 04/01/18 04/02/18 04/02/18 22:59 06:59 14:59 Other: # Voids 2 Weight 115.5 kg 04/01/18 15:20 04/01/18 15:20 <Nelida Sanchez - Last Filed: 04/02/18 13:42> History of Present Illness History of present illness: Mr. Meier is a pleasant 47-year-old male past medical history significant for coronary artery disease, dyslipidemia, hypertension, diabetes mellitus, anxiety, depression, chronic nicotine dependence and marijuana use. He follows with Dr. Courtney in the office. We've been asked to see him in consultation for chest pain. He states he woke up from a nap yesterday and was feeling acutely dizzy. He states the room was not spinning but he felt so lightheaded that he was nervous to even stand up out of fear of falling. He was also feeling his heart race in the fast in a regular fashion with mild discomfort noted in the midsternal region and shortness of breath. The symptoms persisted for approximately 4-5 hours prior to arrival to the emergency department and ultimately subsided after coming to the hospital with no specific alleviating factor. He denies cough, fever or chills. There is no PND or orthopnea. He states he stopped taking all his medications approximately one month ago secondary to running out and not following up with primary care for refills. He also states he feels increasingly depressed and anxious lately. No suicidal ideations. EKG reveals sinus mechanism with no acute ST or T wave abnormalities noted. Chest x-ray negative for acute cardiopulmonary process. Laboratory data reviewed, cardiac enzymes negative 3, d-dimer 0.31, hemoglobin 15.6, platelets 282, sodium 137, potassium 4.1, creatinine 0.68. Triglycerides 333, LDL 94 and HDL 32. He currently takes no daily medications. However in the past he was prescribed aspirin 81 mg daily, atorvastatin 80 mg daily, Plavix 75 mg daily. At the time of my exam: CONSTITUTIONAL: Denies fever. Denies chills. EYES: Denies blurred vision. Denies vision changes. Denies eye pain. EARS, NOSE, MOUTH & THROAT: Denies headache. Denies sore throat. Denies ear pain. CARDIOVASCULAR: Denies chest pain. Denies shortness of breath. Denies orthopnea. Denies PND. Denies palpitations. RESPIRATORY: Denies cough. GASTROINTESTINAL: Denies abdominal pain. Denies diarrhea. Denies constipation. Denies nausea. Denies vomiting. MUSCULOSKELETAL: Denies myalgias. INTEGUMENTARY: Denies pruitis. Denies rash. NEUROLOGIC: Denies numbness. Denies tingling. Denies weakness. PSYCHIATRIC: Denies anxiety. Denies depression. ENDOCRINE: Denies fatigue. Denies weight change. Denies polydipsia. Denies polyurina. GENITOURINARY: Denies burning, hematuria or urgency with micturation. HEMATOLOGIC: Denies history of anemia. Denies bleeding. Blood pressure 129/77 heart rate 70 afebrile maintaining oxygen saturation on room air GENERAL: This is a 47-year-old male in no apparent distress at the time of my examination. HEENT: Head is atraumatic, normocephalic. Pupils are equal, round. Sclerae anicteric. Conjunctivae are clear. Mucous membranes of the mouth are moist. Neck is supple. There is no jugular venous distention. No carotid bruit is heard. LUNGS: Clear to auscultation no wheezes, rales or rhonchi. No chest wall tenderness is noted on palpation or with deep breathing. HEART: Regular rate and rhythm without murmurs, rubs or gallops. S1 and S2 heard. ABDOMEN: Soft, nontender. Bowel sounds are heard. No organomegaly noted. EXTREMITIES: No evidence of peripheral edema and no calf tenderness noted. VASCULAR: Radial and dorsalis pedis pulses palpated, no evidence of clubbing. NEUROLOGIC: Patient is awake, alert and oriented x3. ASSESSMENT Chest pain, atypical. An acute coronary event has been ruled out with no EKG evidence of ischemia and negative cardiac enzymes. History of coronary artery disease status post angioplasty. Most recent cardiac catheterization July 2016 revealed patent stent in the mid LAD and proximal diagonal branch with moderate disease of the mid diagonal branch, at that time he underwent stenting of the PLV branch of the RCA. Dyslipidemia History of diabetes, noncompliant with medication Chronic nicotine dependence Obesity, BMI 35.5 Noncompliant with medication PLAN Resume atorvastatin 80 mg daily and aspirin 81 mg daily. Lengthy discussion had regarding the importance of these 2 medications for his cardiac health. Add small dose of lisinopril 2.5 mg daily. Plavix can be discontinued as it has been over 1-year since his previous stent placement. Obtain 2D echocardiogram and doppler study to assess cardiac structure and function. Perform dobutamine stress echocardiogram to assess for stress induceed ischemia. Medication compliance and smoking cessation highly recommended. If stress test is normal he is stable from a cardiac perspective. Follow up with Dr. Courtney in 2-3 weeks. Thank you kindly for this consultation. Nurse Practitioner note has been reviewed, I agree with a documented findings and plan of care. Patient was seen and examined. Physical Exam Vitals: Vital Signs Temp Pulse Pulse Pulse Resp BP BP 04/02/18 12:00 98.5 F 107 H 16 151/64 04/02/18 07:37 98.7 F 77 16 129/77 04/02/18 04:51 98.8 F 66 16 149/88 04/02/18 04:00 16 04/02/18 00:00 98.0 F 76 16 128/76 04/01/18 20:01 98.0 F 87 15 129/80 04/01/18 20:00 15 04/01/18 18:11 97.7 F 71 16 146/80 04/01/18 18:02 98.3 F 92 18 125/70 04/01/18 17:00 96 18 132/78 04/01/18 16:30 87 18 132/78 04/01/18 16:18 93 19 04/01/18 14:50 97.5 F L 103 H 18 135/81 Pulse Ox 04/02/18 12:00 98 04/02/18 07:37 97 04/02/18 04:51 98 04/02/18 04:00 04/02/18 00:00 99 04/01/18 20:01 98 04/01/18 20:00 04/01/18 18:11 100 04/01/18 18:02 97 04/01/18 17:00 97 04/01/18 16:30 96 04/01/18 16:18 96 04/01/18 14:50 99 Intake and Output 04/01/18 04/02/18 04/02/18 22:59 06:59 14:59 Other: Voiding Method Toilet # Voids 2 1 Weight 115.5 kg Results 04/01/18 15:20 04/01/18 15:20 Cardiac Enzymes 04/01/18 04/01/18 04/01/18 Range/Units 15:20 15:20 21:45 AST 18 (17-59) U/L CK-MB (CK-2) 3.5 H 3.3 H (0.0-2.4) ng/mL Troponin I <0.012 <0.012 (0.000-0.034) ng/mL 04/02/18 Range/Units 03:04 AST (17-59) U/L CK-MB (CK-2) 3.1 H (0.0-2.4) ng/mL Troponin I <0.012 (0.000-0.034) ng/mL Coagulation 04/01/18 Range/Units 15:20 PT 9.3 (9.0-12.0) sec APTT 23.4 (22.0-30.0) sec Lipids 04/01/18 Range/Units 15:20 Triglycerides 333 H (<150) mg/dL Cholesterol 193 (<200) mg/dL HDL Cholesterol 32 L (40-60) mg/dL CBC 04/01/18 Range/Units 15:20 WBC 8.1 (3.8-10.6) k/uL RBC 5.13 (4.30-5.90) m/uL Hgb 15.6 (13.0-17.5) gm/dL Hct 47.9 (39.0-53.0) % Plt Count 282 (150-450) k/uL Comprehensive Metabolic Panel 04/01/18 Range/Units 15:20 Sodium 137 (137-145) mmol/L Potassium 4.1 (3.5-5.1) mmol/L Chloride 107 (98-107) mmol/L Carbon Dioxide 21 L (22-30) mmol/L BUN 16 (9-20) mg/dL Creatinine 0.68 (0.66-1.25) mg/dL Glucose 225 H (74-99) mg/dL Calcium 9.3 (8.4-10.2) mg/dL AST 18 (17-59) U/L ALT 23 (21-72) U/L Alkaline Phosphatase 109 (38-126) U/L Total Protein 6.6 (6.3-8.2) g/dL Albumin 3.6 (3.5-5.0) g/dL Current Medications Generic Name Dose Route Start Last Admin Trade Name Freq PRN Reason Stop Dose Admin Acetaminophen 650 mg 04/01/18 18:07 Tylenol Tab PO Q6HR PRN Mild Pain or Fever > 100.5 Hydrocodone Bitart/Acetaminophen 1 each 04/01/18 18:07 04/02/18 11:46 Stuart 5-325 PO 1 each Q4HR PRN Administration Moderate Pain Aspirin 81 mg 04/02/18 09:00 04/02/18 11:46 Aspirin PO 81 mg DAILY [facility] Administration Atorvastatin Calcium 80 mg 04/01/18 21:00 04/01/18 19:46 Lipitor PO 80 mg HS [facility] Administration Bupropion HCl 150 mg 04/02/18 09:00 04/02/18 11:42 Wellbutrin Xl PO 150 mg DAILY [facility] Administration Enoxaparin Sodium 40 mg 04/02/18 09:00 04/02/18 11:47 Lovenox SQ 40 mg DAILY [facility] Administration Dobutamine HCl/Dextrose 500 mg 250 mls @ 34.65 mls/hr 04/02/18 08:41 / IV Solution IV 04/02/18 15:53 .Q7H13M ONE Protocol 10 MCG/KG/MIN Insulin Aspart 0 unit 04/02/18 07:30 04/02/18 11:40 Novolog SQ Not Given AC-TID [facility] Protocol Lisinopril 2.5 mg 04/02/18 09:00 04/02/18 11:42 Zestril PO 2.5 mg DAILY [facility] Administration Naloxone HCl 0.2 mg 04/01/18 18:07 Narcan IV Q2M PRN Opioid Reversal Nitroglycerin 0.4 mg 04/01/18 17:20 Nitrostat SUBLINGUAL Q5M PRN Chest Pain Pantoprazole Sodium 40 mg 04/02/18 07:30 04/02/18 11:42 Protonix PO 40 mg AC-BRKFST [facility] Administration Paroxetine HCl 40 mg 04/02/18 09:00 04/02/18 11:42 Paxil PO 40 mg DAILY [facility] Administration Quetiapine Fumarate 50 mg 04/01/18 21:00 04/02/18 11:42 Seroquel PO 50 mg BID [facility] Administration Intake and Output 04/01/18 04/02/18 04/02/18 22:59 06:59 14:59 Other: Voiding Method Toilet # Voids 2 1 Weight 115.5 kg 04/01/18 15:20 04/01/18 15:20
[2018-04-02] MEDS: QUEtiapine 50 MG TAB PO SCH (11:42)
[2018-04-02] MEDS: HYDROcodone/APAP 5-325MG 1 EACH TAB PO PRN (11:46)
--- NOTE | 2018-04-02 11:53 | ECHOF ---
Referral Reason:Chest pressure MEASUREMENTS -------- HEIGHT: 162.6 cm WEIGHT: 114.8 kg BP: 149/88 RVIDd: 3.4 cm (< 3.3) IVSd: 1.2 cm (0.6 - 1.1) LVIDd: 4.1 cm (3.9 - 5.3) LVPWd: 1.2 cm (0.6 - 1.1) IVSs: 1.7 cm LVIDs: 3.2 cm LVPWs: 1.4 cm LA Diam: 3.6 cm (2.7 - 3.8) Ao Diam: 3.2 cm (2.0 - 3.7) AV Cusp: 2.2 cm (1.5 - 2.6) LA Diam: 4.1 cm (2.7 - 3.8) MV EXCURSION: 14.056 mm (> 18.000) MV EF SLOPE: 108 mm/s (70 - 150) EPSS: 0.5 cm MV E Deep: 0.66 m/s MV DecT: 230 ms MV A Deep: 0.70 m/s MV E/A Ratio: 0.94 RAP: 5.00 mmHg RVSP: 10.52 mmHg FINDINGS -------- Sinus rhythm. This was a technically adequate study. The left ventricular size is normal. There is mild concentric left ventricular hypertrophy. Overa ll left ventricular systolic function is low-normal with, an EF between 50 - 55 %. The right ventricle is normal in size. The left atrial size is normal. The right atrial size is normal. The aortic valve is trileaflet, and appears structurally normal. No aortic stenosis or regurgitation. Mild mitral annular calcification present. Mild mitral regurgitation is present. Mild tricuspid regurgitation present. There is no evidence of pulmonary hypertension. The right v entricular systolic pressure, as measured by Doppler, is 10.52mmHg. There is no pulmonic regurgitation present. The aortic root size is normal. There is no pericardial effusion. CONCLUSIONS -------- 1. The left ventricular size is normal. 2. There is mild concentric left ventricular hypertrophy. 3. Overall left ventricular systolic function is low-normal with, an EF between 50 - 55 %. 4. The right ventricle is normal in size. 5. The left atrial size is normal. 6. The right atrial size is normal. 7. The aortic valve is trileaflet, and appears structurally normal. No aortic stenosis or regurgitati on. 8. Mild mitral annular calcification present. 9. Mild mitral regurgitation is present. 10. Mild tricuspid regurgitation present. 11. There is no evidence of pulmonary hypertension. 12. The right ventricular systolic pressure, as measured by Doppler, is 10.52mmHg. 13. There is no pulmonic regurgitation present. 14. The aortic root size is normal. 15. There is no pericardial effusion. BORING MACHINE SET UP OPERATOR JIG: Estrella Ruiz RDCS
[2018-04-02 11:56] LABS: Glucose,Whole Blood 170 mg/dL (75-99)
[2018-04-02 14:56] VITALS: BP 136/72; PULSE 104; TEMP 98.7
--- NOTE | 2018-04-03 20:33 | ECHOS ---
STRESS ECHOCARDIOGRAM INDICATIONS: Chest pain. MEDICATIONS: BASELINE HEART RATE: 89 BASELINE BLOOD PRESSURE: 141/66 MAXIMUM HEART RATE: 146 MAXIMUM BLOOD PRESSURE: 152/53 85% MPHR: 147 100% MPHR: 173 METS: MAXIMUM STAGE REACHED: 5 mcg/kg/min TOTAL EXERCISE TIME: 14:00 CLINICAL INFORMATION: This is a 47-year-old male patient with chest discomfort. He underwent a dobutamine stress echo. Baseline heart rate 89 beats per minute. Baseline blood pressure 141/66 mmHg. Baseline 12-lead ECG showed normal sinus rhythm with normal cardiac intervals. Patient received dobutamine infusion per protocol. Peak heart rate of 146 beats per minute. Normal blood pressure response to exercise. There was no ECG evidence for ischemia. Occasional PVCs are noted. No sustained or nonsustained arrhythmia. Baseline 2D echo images showed normal LV size and systolic function without segmental wall motion abnormalities. With dobutamine, there was a stepwise increment in overall LV contractility without development of any wall motion abnormalities. At recovery, regional and global LV systolic function remained normal. IMPRESSION: No ECG or echocardiographic evidence for ischemia. MMODL / IJN: [id number] /
== END 2018-04-02 17:01 | disposition home or self-care (01) ==
LOC: EC 14:47 → 1SOBS 17:36
PROVIDERS: ADMIT Family Medicine; ATTEND Family Medicine
DX: R07.89 Other chest pain (principal); F41.0 Panic disorder [episodic paroxysmal anxiety]; F32.9 Major depressive disorder, single episode, unspecified; E11.9 Type 2 diabetes mellitus without complications; I25.10 Atherosclerotic heart disease of native coronary artery without angina pectoris; I10 Essential (primary) hypertension; E78.5 Hyperlipidemia, unspecified; M19.90 Unspecified osteoarthritis, unspecified site; G89.29 Other chronic pain; F17.200 Nicotine dependence, unspecified, uncomplicated; I25.2 Old myocardial infarction; Z95.5 Presence of coronary angioplasty implant and graft; Z91.14 Patient's other noncompliance with medication regimen; Z79.899 Other long term (current) drug therapy; Z79.84 Long term (current) use of oral hypoglycemic drugs; Z79.82 Long term (current) use of aspirin; Z79.02 Long term (current) use of antithrombotics/antiplatelets; Z88.8 Allergy status to other drugs, medicaments and biological substances; R42 Dizziness and giddiness; R06.02 Shortness of breath; R00.0 Tachycardia, unspecified; R55 Syncope and collapse; R53.1 Weakness; Z68.35 Body mass index [BMI] 35.0-35.9, adult; E66.9 Obesity, unspecified
CPT/HCPCS: 99285; 96361 ×2; 96374 ×2; 96372; 36415; 93005; 93306; 85379; 80061; 80053; 82550 ×2; 82553 ×2; 83735; 84484 ×2; 85025; 85610; 85730; 83036; 71046; G0378 ×2; C8930; J2060; J1250; J1650; 93351

== ENCOUNTER 2018-06-19 11:07 | Observation (INO) | payer OTHER ==
[2018-06-19] MEDS ORDERED: ASPIRIN 81 MG PO STA (11:42)
[2018-06-19] MEDS ORDERED: SODIUM CHLORIDE 0.9% 1,000 ML IV STA ×2 (11:42)
[2018-06-19] MEDS ORDERED: LORazepam 1 MG TAB PO STA (11:42)
--- NOTE | 2018-06-19 11:45 | ED ---
SOB HPI - General Chief Complaint: Shortness of Breath Stated Complaint: anxiety Time Seen by Provider: 06/19/18 11:20 Source: patient, RN notes reviewed, old records reviewed Mode of arrival: ambulatory Limitations: no limitations - History of Present Illness Initial Comments: Patient is a 47-year-old male with a significant cardiac history including 3 stents 2 MIs presents responsive 3 days of chest pain shortness of breath. He questions if his symptoms to be just related to anxiety. Patient reports that he is a heavy smoker, diabetic and has history of hypertension. He also is on multiple psychiatric medications. He has been taking these as prescribed. Patient states that he was concerned with the persistent pain that seemed to be more of a cardiac etiology rather than anxiety. Patient denies nausea or vomiting. - Related Data Home Medications Medication Instructions Recorded Confirmed Aspirin 325 mg PO DAILY 06/19/18 06/19/18 Previous Rx's Medication Instructions Recorded Atorvastatin [Lipitor] 80 mg PO HS #90 tab 04/02/18 Cyclobenzaprine [Flexeril] 10 mg PO TID #90 tab 04/02/18 Lisinopril [Zestril] 2.5 mg PO DAILY #90 tab 04/02/18 Nateglinide 60 mg PO AC-TID #90 tablet 04/02/18 PARoxetine HCL [Paxil] 40 mg PO DAILY #30 tablet 04/02/18 QUEtiapine [SEROquel] 50 mg PO BID #60 tab 04/02/18 buPROPion XL [Wellbutrin XL] 150 mg PO DAILY #30 tab.er.24h 04/02/18 sitaGLIPtin [Januvia] 100 mg PO DAILY #30 tab 04/02/18 Allergies Allergy/AdvReac Type Severity Reaction Status Date / Time diclofenac sodium Allergy Swelling Verified 06/19/18 11:44 [From Arthrotec] misoprostol [From Arthrotec] Allergy Swelling Verified 06/19/18 11:44 Review of Systems ROS Statement: Those systems with pertinent positive or pertinent negative responses have been documented in the HPI. ROS Other: All systems not noted in ROS Statement are negative. Past Medical History Past Medical History: Asthma, Chest Pain / Angina, Diabetes Mellitus, GERD/ Reflux, Hyperlipidemia, Hypertension, Myocardial Infarction ([place]), Osteoarthritis (OA) Additional Past Medical History / Comment(s): ARTHRITIS multiple joints, CHRONIC PAIN, pinched nerves lumbar region, migraines. Last Myocardial Infarction Date:: 07/2016 History of Any Multi-Drug Resistant Organisms: None Reported Past Surgical History: Heart Catheterization With Stent, Orthopedic Surgery Additional Past Surgical History / Comment(s): 2016 heart cath w/stent, 10/10/14 PTCA with stent to proximal LAD, LEFT KNEE ARTHROSCOPY, R wrist CARPAL TUNNEL, LEFT and right HAND TRIGGER FINGER RELEASE, pain clinic procedures-lumbar/ sacral areas. Past Anesthesia/Blood Transfusion Reactions: Postoperative Nausea & Vomiting ( PONV) Additional Past Anesthesia/Blood Transfusion Reaction / Comment(s): never recieved blood Date of Last Stent Placement:: 2014 Past Psychological History: Anxiety, Depression Smoking Status: Current every day smoker - Past Family History Father Family Medical History: Congestive Heart Failure (CHF), Coronary Artery Disease (CAD) Additional Family Medical History / Comment(s): Father at the age of 63 yrs from cardiac aneurysm. Mother Family Medical History: Diabetes Mellitus, Hypertension, Osteoarthritis (OA) Additional Family Medical History / Comment(s): Back problems General Exam - General Exam Comments Initial Comments: 47-year-old male. Alert and oriented 3. Limitations: no limitations General appearance: alert, in no apparent distress Head exam: Present: atraumatic, normocephalic, normal inspection Eye exam: Present: normal appearance, PERRL, EOMI. Absent: scleral icterus, conjunctival injection, periorbital swelling ENT exam: Present: normal exam, mucous membranes moist Neck exam: Present: normal inspection. Absent: tenderness, meningismus, lymphadenopathy Respiratory exam: Present: normal lung sounds bilaterally. Absent: respiratory distress, wheezes, rales, rhonchi, stridor Cardiovascular Exam: Present: regular rate, normal rhythm, normal heart sounds. Absent: systolic murmur, diastolic murmur, rubs, gallop, clicks GI/Abdominal exam: Present: soft, normal bowel sounds. Absent: distended, tenderness, guarding, rebound, rigid Extremities exam: Present: normal inspection, full ROM, normal capillary refill. Absent: tenderness, pedal edema, joint swelling, calf tenderness Back exam: Present: normal inspection Neurological exam: Present: alert, oriented X3, CN II-XII intact Psychiatric exam: Present: normal affect, normal mood Skin exam: Present: warm, dry, intact, normal color. Absent: rash Course Vital Signs 06/19/18 11:15 Temperature 97.6 F Pulse Rate 112 H Respiratory 18 Rate Blood Pressure 155/91 O2 Sat by Pulse 99 Oximetry Medical Decision Making - Medical Decision Making 47-year-old male with significant cardiac history, smoker diabetes presents emergency Department today with complaints chest pain, dyspnea. He states he is also felt increasingly dizzy. He has no neurological deficits. No focal signs of weakness. Initial EKG was reviewed and unremarkable. Troponin initially negative. With his multiple risk factors like to admit the Patient for continued chest pain and dizziness and repeat troponins. Patient agrees to admission. He also states is concerned of anxiety and also denies any suicidal ideations but would like to talk to psychiatry. He is on multiple psych meds. I discussed with the similar the Patient for cardiac reasons and the affairs further necessary for psych consult was completed be completed by admitting physician. - Lab Data Result diagrams: 06/19/18 11:35 06/19/18 11:35 Lab Results 06/19/18 06/19/18 06/19/18 Range/Units 11:35 11:35 11:35 WBC 10.0 (3.8-10.6) k/uL RBC 5.47 (4.30-5.90) m/uL Hgb 16.7 (13.0-17.5) gm/dL Hct 49.7 (39.0-53.0) % MCV 90.8 (80.0-100.0) fL MCH 30.6 (25.0-35.0) pg MCHC 33.6 (31.0-37.0) g/dL RDW 13.7 (11.5-15.5) % Plt Count 278 (150-450) k/uL Neutrophils % 60 % Lymphocytes % 26 % Monocytes % 6 % Eosinophils % 4 % Basophils % 1 % Neutrophils # 6.0 (1.3-7.7) k/uL Lymphocytes # 2.6 (1.0-4.8) k/uL Monocytes # 0.6 (0-1.0) k/uL Eosinophils # 0.4 (0-0.7) k/uL Basophils # 0.1 (0-0.2) k/uL PT (9.0-12.0) sec INR (<1.2) APTT (22.0-30.0) sec Sodium 138 (137-145) mmol/L Potassium 5.2 H (3.5-5.1) mmol/L Chloride 105 (98-107) mmol/L Carbon Dioxide 25 (22-30) mmol/L Anion Gap 8 mmol/L BUN 17 (9-20) mg/dL Creatinine 0.84 (0.66-1.25) mg/dL Est GFR (CKD-EPI)AfAm >90 (>60 ml/min/1.73 sqM) Est GFR (CKD-EPI)NonAf >90 (>60 ml/min/1.73 sqM) Glucose 200 H (74-99) mg/dL Calcium 9.7 (8.4-10.2) mg/dL Magnesium 1.7 (1.6-2.3) mg/dL Total Bilirubin 0.4 (0.2-1.3) mg/dL AST 16 L (17-59) U/L ALT 24 (21-72) U/L Alkaline Phosphatase 93 (38-126) U/L Total Creatine Kinase 191 H (55-170) U/L CK-MB (CK-2) 4.6 H (0.0-2.4) ng/mL CK-MB (CK-2) Rel Index 2.4 Troponin I <0.012 (0.000-0.034) ng/mL NT-Pro-B Natriuret Pep pg/mL Total Protein 7.3 (6.3-8.2) g/dL Albumin 4.1 (3.5-5.0) g/dL Amylase 42 (30-110) U/L Lipase 56 (23-300) U/L 06/19/18 06/19/18 Range/Units 11:35 11:35 WBC (3.8-10.6) k/uL RBC (4.30-5.90) m/uL Hgb (13.0-17.5) gm/dL Hct (39.0-53.0) % MCV (80.0-100.0) fL MCH (25.0-35.0) pg MCHC (31.0-37.0) g/dL RDW (11.5-15.5) % Plt Count (150-450) k/uL Neutrophils % % Lymphocytes % % Monocytes % % Eosinophils % % Basophils % % Neutrophils # (1.3-7.7) k/uL Lymphocytes # (1.0-4.8) k/uL Monocytes # (0-1.0) k/uL Eosinophils # (0-0.7) k/uL Basophils # (0-0.2) k/uL PT 9.4 (9.0-12.0) sec INR 0.9 (<1.2) APTT 23.9 (22.0-30.0) sec Sodium (137-145) mmol/L Potassium (3.5-5.1) mmol/L Chloride (98-107) mmol/L Carbon Dioxide (22-30) mmol/L Anion Gap mmol/L BUN (9-20) mg/dL Creatinine (0.66-1.25) mg/dL Est GFR (CKD-EPI)AfAm (>60 ml/min/1.73 sqM) Est GFR (CKD-EPI)NonAf (>60 ml/min/1.73 sqM) Glucose (74-99) mg/dL Calcium (8.4-10.2) mg/dL Magnesium (1.6-2.3) mg/dL Total Bilirubin (0.2-1.3) mg/dL AST (17-59) U/L ALT (21-72) U/L Alkaline Phosphatase (38-126) U/L Total Creatine Kinase (55-170) U/L CK-MB (CK-2) (0.0-2.4) ng/mL CK-MB (CK-2) Rel Index Troponin I (0.000-0.034) ng/mL NT-Pro-B Natriuret Pep 16 pg/mL Total Protein (6.3-8.2) g/dL Albumin (3.5-5.0) g/dL Amylase (30-110) U/L Lipase (23-300) U/L 06/19/18 11:46 EKG shows sinus tachycardia, otherwise normal EKG. Lucio of 104 bpm. CA interval is 122 ms. QRS ration 92 ms. QT QTc is 334/439 ms. - Radiology Data Radiology results: report reviewed Chest x-rays negative for any acute cardiac process. Disposition Clinical Impression: Dizziness, Chest pain Disposition: ADMITTED IP TO THIS HOSP Condition: Stable Is patient prescribed a controlled substance at d/c from ED?: No Referrals: None,Stated [Primary Care Provider] - 1-2 days Time of Disposition: 13:24
--- NOTE | 2018-06-19 11:58 | XR ---
EXAMINATION TYPE: XR chest 2V DATE OF EXAM: 06/19/2018 COMPARISON: Chest x-ray April 01, 2018. CT chest July 25, 2016 HISTORY: Shortness of breath and chest pain. TECHNIQUE: Frontal and lateral views of the chest are obtained. FINDINGS: There is no focal air space opacity, pleural effusion, or pneumothorax seen. The cardiac silhouette size is within normal limits. The osseous structures are intact. IMPRESSION: No acute cardiopulmonary process.
[2018-06-19 12:01] LABS: Basophils # (A) 0.1 k/uL (0-0.2); Basophils % (A) 1 %; Eosinophils # (A) 0.4 k/uL (0-0.7); Eosinophils % (A) 4 %; HCT 49.7 % (39.0-53.0); HGB 16.7 gm/dL (13.0-17.5); Lymphocytes # (A) 2.6 k/uL (1.0-4.8); Lymphocytes % (A) 26 %; MCH 30.6 pg (25.0-35.0); MCHC 33.6 g/dL (31.0-37.0); MCV 90.8 fL (80.0-100.0); Mean Platelet Volume 6.6; Monocytes # (A) 0.6 k/uL (0-1.0); Monocytes % (A) 6 %; Neutrophils % (A) 60 %; Platelet Count 278 k/uL (150-450); RBC 5.47 m/uL (4.30-5.90); RDW 13.7 % (11.5-15.5)
[2018-06-19 12:09] LABS: INR 0.9 (<1.2); Partial Thromboplastin Time 23.9 sec (22.0-30.0); Prothrombin Time 9.4 sec (9.0-12.0)
[2018-06-19 12:12] LABS: ALT 24 U/L (21-72); AST 16 U/L (17-59); Albumin 4.1 g/dL (3.5-5.0); Alkaline Phosphatase 93 U/L (38-126); Amylase 42 U/L (30-110); Anion Gap 8 mmol/L; Blood Urea Nitrogen 17 mg/dL (9-20); Calcium 9.7 mg/dL (8.4-10.2); Carbon Dioxide 25 mmol/L (22-30); Chloride 105 mmol/L (98-107); Glucose 200 mg/dL (74-99); Lipase 56 U/L (23-300); Magnesium 1.7 mg/dL (1.6-2.3); Potassium 5.2 mmol/L (3.5-5.1); Sodium 138 mmol/L (137-145); Total Bilirubin 0.4 mg/dL (0.2-1.3); Total Protein 7.3 g/dL (6.3-8.2)
[2018-06-19 12:23] LABS: Creatine Kinase 191 U/L (55-170)
[2018-06-19 12:35] LABS: Creatine Kinase MB 4.6 ng/mL (0.0-2.4); Troponin I <0.012 ng/mL (0.000-0.034)
[2018-06-19] MEDS ORDERED: IBUPROFEN 400 MG TAB PO PRN (13:25)
[2018-06-19] MEDS ORDERED: LORazepam 0.5 MG TAB PO PRN (13:25)
[2018-06-19] MEDS ORDERED: KETOROLAC 30 MG/ML 1 ML VIAL IVP PRN (13:25)
[2018-06-19] MEDS ORDERED: ACETAMINOPHEN TAB 325 MG TAB PO PRN (13:25)
[2018-06-19] MEDS ORDERED: ONDANSETRON 4 MG/2 ML VIAL IVP PRN (13:25)
[2018-06-19] MEDS ORDERED: NALOXONE 0.4 MG/ML 1 ML VIAL IV PRN (13:25)
[2018-06-19] MEDS ORDERED: SODIUM CHLORIDE 0.9% 1,000 ML IV SCH (13:30)
[2018-06-19 17:06] LABS: Glucose,Whole Blood 105 mg/dL (75-99)
[2018-06-19] MEDS ORDERED: NATEGLINIDE PO SCH (17:30)
[2018-06-19] MEDS: INSULIN ASPART 100 UNIT/ML 1 ML 10 ML VIAL SQ SCH ×2 (17:36→21:35)
[2018-06-19] MEDS: HYDROcodone/APAP 5-325MG 1 EACH TAB PO PRN (17:38)
[2018-06-19] MEDS: QUEtiapine 50 MG TAB PO SCH (20:05)
[2018-06-19] MEDS ORDERED: ATORVASTATIN 80 MG TAB PO SCH (21:00)
[2018-06-19 21:33] LABS: Glucose,Whole Blood 102 mg/dL (75-99)
--- NOTE | 2018-06-19 21:37 | P.HPIM ---
History of Present Illness H&P Date: 06/19/18 Chief Complaint: Chest pain Patient is a 47-year-old male with a known history of hypertension, diabetes type 2, anxiety/depression, coronary artery disease with history of stent placement 3 initially in 2013 came to ER with complaints of chest pain and shortness of breath. Patient has been having chest pain for the past 3 days on and off lasting almost whole day. No radiation. No associated nausea vomiting. Patient does have dizziness or lightheaded. Denied any recent illnesses. No dysuria or hematuria. Patient currently everyday smoker.Patient states that he was concerned with the persistent pain which made him come to ER. Chest x-ray showed no cardiopulmonary process. EKG showed sinus tachycardia. Pulse ox 97% on room air. Review of Systems Constitutional: Patient denies any fever or chills . No generalized weakness or weight loss. Abdomen: Patient denied nausea vomiting and diarrhea and abdominal pain. Cardiovascular: Chest pain associated with shortness of breath. No palpitations. No leg swelling.. Respiratory: patient denied any cough is from production. No shortness of breath Neurologic: Patient denied any numbness or tingling headache. Musculoskeletal: Patient denies any complaints of joint swelling or deformity. Skin: Negative Psychiatric: Negative Endocrine: No heat or cold intolerance. No recent weight gain. Genitourinary: No dysuria or hematuria. All other 14 point ROS negative except the above Past Medical History Past Medical History: Asthma, Chest Pain / Angina, Diabetes Mellitus, GERD/ Reflux, Hyperlipidemia, Hypertension, Myocardial Infarction ([place]), Osteoarthritis (OA) Additional Past Medical History / Comment(s): ARTHRITIS multiple joints, CHRONIC PAIN, pinched nerves lumbar region, migraines. Last Myocardial Infarction Date:: 07/2016 History of Any Multi-Drug Resistant Organisms: None Reported Past Surgical History: Heart Catheterization With Stent, Orthopedic Surgery Additional Past Surgical History / Comment(s): 2016 heart cath w/stent, 10/10/14 PTCA with stent to proximal LAD, LEFT KNEE ARTHROSCOPY, R wrist CARPAL TUNNEL, LEFT and right HAND TRIGGER FINGER RELEASE, pain clinic procedures-lumbar/ sacral areas. Past Anesthesia/Blood Transfusion Reactions: Postoperative Nausea & Vomiting ( PONV) Additional Past Anesthesia/Blood Transfusion Reaction / Comment(s): never recieved blood Date of Last Stent Placement:: 2014 Past Psychological History: Anxiety, Depression Smoking Status: Current every day smoker - Past Family History Father Family Medical History: Congestive Heart Failure (CHF), Coronary Artery Disease (CAD) Additional Family Medical History / Comment(s): Father at the age of 63 yrs from cardiac aneurysm. Mother Family Medical History: Diabetes Mellitus, Hypertension, Osteoarthritis (OA) Additional Family Medical History / Comment(s): Back problems Medications and Allergies Home Medications Medication Instructions Recorded Confirmed Type Atorvastatin [Lipitor] 80 mg PO HS #90 tab 04/02/18 06/19/18 Rx Cyclobenzaprine [Flexeril] 10 mg PO TID #90 tab 04/02/18 06/19/18 Rx Lisinopril [Zestril] 2.5 mg PO DAILY #90 tab 04/02/18 06/19/18 Rx Nateglinide 60 mg PO AC-TID #90 tablet 04/02/18 06/19/18 Rx PARoxetine HCL [Paxil] 40 mg PO DAILY #30 tablet 04/02/18 06/19/18 Rx QUEtiapine [SEROquel] 50 mg PO BID #60 tab 04/02/18 06/19/18 Rx buPROPion XL [Wellbutrin XL] 150 mg PO DAILY #30 tab.er.24h 04/02/18 06/19/18 Rx sitaGLIPtin [Januvia] 100 mg PO DAILY #30 tab 04/02/18 06/19/18 Rx Aspirin 325 mg PO DAILY 06/19/18 06/19/18 History Allergies Allergy/AdvReac Type Severity Reaction Status Date / Time diclofenac sodium Allergy Swelling Verified 06/19/18 11:44 [From Arthrotec] misoprostol [From Arthrotec] Allergy Swelling Verified 06/19/18 11:44 Physical Exam Vitals: Vital Signs Temp Pulse Resp BP Pulse Ox 06/19/18 13:30 98 19 115/71 95 06/19/18 13:00 93 19 124/74 94 L 06/19/18 12:30 105 H 18 132/83 96 06/19/18 12:00 108 H 18 134/80 96 06/19/18 11:30 112 H 13 140/81 97 06/19/18 11:15 97.6 F 112 H 18 155/91 99 Intake and Output 06/18/18 06/19/18 06/19/18 22:59 06:59 14:59 Other: Weight 104.326 kg PHYSICAL EXAMINATION: Patient is lying in the bed comfortably, no acute distress, awake alert and oriented.. HEENT: Normocephalic. Neck is supple. Pupils reactive. Nostrils clear. Oral cavity is moist. Ears reveal no drainage. Neck reveals no JVD, carotid bruits, or thyromegaly. CHEST EXAMINATION: Trachea is central. Symmetrical expansion. Lung briones clear to auscultation and percussion. CARDIAC: Normal S1, S2 with no gallops. No murmurs ABDOMEN: Soft. Bowel sounds normal. No organomegaly. No abdominal bruits. Extremities: reveal no edema. No clubbing or cyanosis Neurologically awake, alert, oriented x3 with well-coordinated movements. No focal deficits noted Skin: No rash or skin lesions. Psychiatric: Coperative. Nonsuicidal. Anxious. Musculoskeletal: No joint swelling or deformity. Normal range of motion. Results CBC & Chem 7: 06/19/18 11:35 06/19/18 11:35 Labs: Abnormal Lab Results - Last 24 Hours (Table) 06/19/18 06/19/18 Range/Units 11:35 11:35 Potassium 5.2 H (3.5-5.1) mmol/L Glucose 200 H (74-99) mg/dL AST 16 L (17-59) U/L Total Creatine Kinase 191 H (55-170) U/L CK-MB (CK-2) 4.6 H (0.0-2.4) ng/mL Thrombosis Risk Factor Assmnt - DVT/VTE Prophylaxis DVT/VTE Prophylaxis: Pharmacologic Prophylaxis ordered Assessment and Plan Assessment: Atypical chest pain patient with known history of coronary artery disease and stent placement Coronary artery disease with history of stent placement 3. Most recent PTCA in 2017 Hypertension Diabetes type 2. [id number] Severe nicotine addiction Anxiety/depression Chronic pain with back pain and pain procedures. Lumbar disc degenerative disease History of [place] 2 GERD Osteoarthritis Asthma stable Migraine headaches DVT prophylaxis with heparin subcu Plan: Patient will be continued on telemetry monitoring. Serial EKGs and troponins. Continue pain management with [place], Toradol and Flexeril. Insulin sliding scale and continue the home medications. Follow closely. Cardiology was consulted. Further recommendations based on the clinical course. Time with Patient: Greater than 30
[2018-06-19] MEDS: CYCLOBENZAPRINE 10 MG TAB PO SCH (21:39)
[2018-06-20] MEDS: HEPARIN SODIUM,PORCINE 5,000 UNIT/ML 1 ML VIAL SQ SCH ×2 (06:16→09:18)
[2018-06-20 06:18] LABS: Anion Gap 9 mmol/L; Blood Urea Nitrogen 17 mg/dL (9-20); Calcium 9.3 mg/dL (8.4-10.2); Carbon Dioxide 23 mmol/L (22-30); Chloride 105 mmol/L (98-107); Glucose 94 mg/dL (74-99); Potassium 4.5 mmol/L (3.5-5.1); Sodium 137 mmol/L (137-145)
[2018-06-20] MEDS: HYDROcodone/APAP 5-325MG 1 EACH TAB PO PRN (06:20)
[2018-06-20 06:51] LABS: Glucose,Whole Blood 89 mg/dL (75-99)
[2018-06-20] MEDS ORDERED: PARoxetine 20 MG TAB PO SCH (09:00)
[2018-06-20] MEDS ORDERED: LISINOPRIL 2.5 MG TAB PO SCH (09:00)
[2018-06-20] MEDS ORDERED: METOPROLOL TARTRATE 25 MG TAB PO SCH (09:00)
[2018-06-20] MEDS ORDERED: PANTOPRAZOLE 40 MG/10 ML VIAL IV SCH (09:00)
[2018-06-20] MEDS ORDERED: ASPIRIN 325 MG TAB PO SCH (09:00)
[2018-06-20] MEDS ORDERED: buPROPion XL 150 MG TAB.ER.24H PO SCH (09:00)
[2018-06-20] MEDS: INSULIN ASPART 100 UNIT/ML 1 ML 10 ML VIAL SQ SCH (09:17)
[2018-06-20] MEDS: CYCLOBENZAPRINE 10 MG TAB PO SCH (09:18)
[2018-06-20] MEDS: QUEtiapine 50 MG TAB PO SCH (09:18)
[2018-06-20 11:45] LABS: Glucose,Whole Blood 207 mg/dL (75-99)
[2018-06-20 12:38] VITALS: BP 128/73; PULSE 90; RESP 16; TEMP 97.5
--- NOTE | 2018-06-20 13:32 | P.CRDCN ---
History of Present Illness History of present illness: This is a pleasant 47-year-old male past medical history significant for coronary artery disease status post multiple angioplasties most recently July 2017 at that time he had a patent stent in the mid LAD patent stent in the proximal diagonal branch with moderate disease of the diagonal branch and at that time he underwent stenting of the PLV branch of the RCA. He also has a history of dyslipidemia, hypertension, diabetes mellitus, chronic nicotine and marijuana dependence and history of noncompliance with medication and office visits. He has followed in the past with Dr. Courtney. We have been asked to see him in consultation for chest pain. He states he woke up yesterday with palpitations and rapid heart beat with a discomfort in the left precoridal region and shortness of breath with dizziness. No nausea or vomiting. He had to get up and walk around outside to attempt to alleviate his palpitations. This lasted 2 hours and subsided on its own. This has happened for the last 3-4 days every morning. Upon arrival to the emergency department his heart was noted to be mildly elevated in the low 100s sinus tachycardia. No ST or T wave abnormalities noted. Chest x-ray is negative for an acute cardiopulmonary process. Laboratory data reviewed, hemoglobin 16.7, platelets 278, WBC 10, d- dimer 0.29, sodium 137, potassium 4.5, creatinine 0.73, magnesium 1.7, cardiac enzymes negative 3, TSH 2.88, LDL 152, HDL 42, triglycerides 281 and total cholesterol 250. Current cardiac medications include metoprolol 25 mg twice a day, aspirin 325 mg daily, atorvastatin 80 mg daily, lisinopril 2.5 mg daily. Most recent echocardiogram March 2018 reveals preserved left ventricular systolic function with ejection fraction 50-55%. Most recent stress test performed March 2018 with a dobutamine stress echocardiogram that was negative for stress-induced cardiac ischemia. At the time of my exam: CONSTITUTIONAL: Denies fever. Denies chills. EYES: Denies blurred vision. Denies vision changes. Denies eye pain. EARS, NOSE, MOUTH & THROAT: Denies headache. Denies sore throat. Denies ear pain. CARDIOVASCULAR: Denies chest pain. Denies shortness of breath. Denies orthopnea. Denies PND. Denies palpitations. RESPIRATORY: Denies cough. GASTROINTESTINAL: Denies abdominal pain. Denies diarrhea. Denies constipation. Denies nausea. Denies vomiting. MUSCULOSKELETAL: Denies myalgias. INTEGUMENTARY: Denies pruitis. Denies rash. NEUROLOGIC: Denies numbness. Denies tingling. Denies weakness. PSYCHIATRIC: Denies anxiety. Denies depression. ENDOCRINE: Denies fatigue. Denies weight change. Denies polydipsia. Denies polyurina. GENITOURINARY: Denies burning, hematuria or urgency with micturation. HEMATOLOGIC: Denies history of anemia. Denies bleeding. Blood pressure 121/70 heart rate 99 afebrile maintaining oxygen saturation on room air GENERAL: This is a 47-year-old male in no apparent distress at the time of my examination. HEENT: Head is atraumatic, normocephalic. Pupils are equal, round. Sclerae anicteric. Conjunctivae are clear. Mucous membranes of the mouth are moist. Neck is supple. There is no jugular venous distention. No carotid bruit is heard. LUNGS: Clear to auscultation no wheezes, rales or rhonchi. No chest wall tenderness is noted on palpation or with deep breathing. HEART: Regular rate and rhythm without murmurs, rubs or gallops. S1 and S2 heard. ABDOMEN: Soft, nontender. Bowel sounds are heard. No organomegaly noted. EXTREMITIES: No evidence of peripheral edema and no calf tenderness noted. VASCULAR: Radial and dorsalis pedis pulses palpated, no evidence of clubbing. NEUROLOGIC: Patient is awake, alert and oriented x3. ASSESSMENT Palpitations, atypical chest pain. An acute coronary event has been ruled out with no EKG evidence of ischemia and negative cardiac enzymes. Hypertension Dyslipidemia, uncontrolled secondary to noncompliance History of coronary artery disease status post multiple angioplasties most recently in July 2017 Diabetes mellitus Chronic continue dependence Daily marijuana use Noncompliance Obesity, BMI 32 PLAN An acute coronary event is ruled out with no EKG evidence of ischemia and negative cardiac enzymes. Patient also has had a recent normal stress test 3 months ago. Compliance of medications has been strongly recommended. Cessation of tobacco and marijuana use discussed and highly recommended. Stable from a cardiac perspective. Follow-up with Dr. Courtney upon discharge. Thank you kindly for this consultation. Nurse Practitioner note has been reviewed, I agree with a documented findings and plan of care. Patient was seen and examined. Past Medical History Past Medical History: Asthma, Chest Pain / Angina, Diabetes Mellitus, GERD/ Reflux, Hyperlipidemia, Hypertension, Myocardial Infarction ([place]), Osteoarthritis (OA) Additional Past Medical History / Comment(s): ARTHRITIS multiple joints, CHRONIC PAIN, pinched nerves lumbar region, migraines. Last Myocardial Infarction Date:: 07/2016 History of Any Multi-Drug Resistant Organisms: None Reported Past Surgical History: Heart Catheterization With Stent, Orthopedic Surgery Additional Past Surgical History / Comment(s): 2016 heart cath w/stent, 10/10/14 PTCA with stent to proximal LAD, LEFT KNEE ARTHROSCOPY, R wrist CARPAL TUNNEL, LEFT and right HAND TRIGGER FINGER RELEASE, pain clinic procedures-lumbar/ sacral areas. Past Anesthesia/Blood Transfusion Reactions: Postoperative Nausea & Vomiting ( PONV) Additional Past Anesthesia/Blood Transfusion Reaction / Comment(s): never recieved blood Date of Last Stent Placement:: 2014 Past Psychological History: Anxiety, Depression Smoking Status: Current every day smoker - Past Family History Father Family Medical History: Congestive Heart Failure (CHF), Coronary Artery Disease (CAD) Additional Family Medical History / Comment(s): Father at the age of 63 yrs from cardiac aneurysm. Mother Family Medical History: Diabetes Mellitus, Hypertension, Osteoarthritis (OA) Additional Family Medical History / Comment(s): Back problems Medications and Allergies Home Medications Medication Instructions Recorded Confirmed Type Atorvastatin [Lipitor] 80 mg PO HS #90 tab 04/02/18 06/19/18 Rx Cyclobenzaprine [Flexeril] 10 mg PO TID #90 tab 04/02/18 06/19/18 Rx Lisinopril [Zestril] 2.5 mg PO DAILY #90 tab 04/02/18 06/19/18 Rx Nateglinide 60 mg PO AC-TID #90 tablet 04/02/18 06/19/18 Rx PARoxetine HCL [Paxil] 40 mg PO DAILY #30 tablet 04/02/18 06/19/18 Rx QUEtiapine [SEROquel] 50 mg PO BID #60 tab 04/02/18 06/19/18 Rx buPROPion XL [Wellbutrin XL] 150 mg PO DAILY #30 tab.er.24h 04/02/18 06/19/18 Rx sitaGLIPtin [Januvia] 100 mg PO DAILY #30 tab 04/02/18 06/19/18 Rx Aspirin 325 mg PO DAILY 06/19/18 06/19/18 History Metoprolol Tartrate [Lopressor] 25 mg PO BID #60 tab 06/20/18 Rx Allergies Allergy/AdvReac Type Severity Reaction Status Date / Time diclofenac sodium Allergy Swelling Verified 06/19/18 11:44 [From Arthrotec] misoprostol [From Arthrotec] Allergy Swelling Verified 06/19/18 11:44 Physical Exam Vitals: Vital Signs Temp Pulse Pulse Resp BP BP Pulse Ox 06/20/18 03:45 98.4 F 89 18 114/63 96 06/20/18 03:43 88 18 06/20/18 00:00 88 18 06/19/18 23:49 98.3 F 88 18 138/72 94 L 06/19/18 20:00 98.1 F 100 18 158/71 97 06/19/18 16:42 98.1 F 114 H 18 125/84 96 06/19/18 16:00 87 33 H 111/56 97 06/19/18 15:30 93 18 111/53 94 L 06/19/18 15:00 93 23 121/68 92 L 06/19/18 14:30 103 H 28 H 115/88 98 06/19/18 14:00 97 20 129/62 95 06/19/18 13:30 98 19 115/71 95 06/19/18 13:00 93 19 124/74 94 L 06/19/18 12:30 105 H 18 132/83 96 06/19/18 12:00 108 H 18 134/80 96 06/19/18 11:30 112 H 13 140/81 97 06/19/18 11:15 97.6 F 112 H 18 155/91 99 Intake and Output 06/19/18 06/20/18 06/20/18 22:59 06:59 14:59 Intake Total 222 Balance 222 Intake: Oral 222 Other: Voiding Method Toilet Toilet # Voids 1 2 Results 06/19/18 11:35 06/20/18 05:44 Cardiac Enzymes 06/19/18 06/19/18 06/19/18 Range/Units 11:35 11:35 17:41 AST 16 L (17-59) U/L CK-MB (CK-2) 4.6 H (0.0-2.4) ng/mL Troponin I <0.012 <0.012 (0.000-0.034) ng/mL 06/19/18 Range/Units 23:21 AST (17-59) U/L CK-MB (CK-2) (0.0-2.4) ng/mL Troponin I <0.012 (0.000-0.034) ng/mL Coagulation 06/19/18 Range/Units 11:35 PT 9.4 (9.0-12.0) sec APTT 23.9 (22.0-30.0) sec CBC 06/19/18 Range/Units 11:35 WBC 10.0 (3.8-10.6) k/uL RBC 5.47 (4.30-5.90) m/uL Hgb 16.7 (13.0-17.5) gm/dL Hct 49.7 (39.0-53.0) % Plt Count 278 (150-450) k/uL Comprehensive Metabolic Panel 06/19/18 06/20/18 Range/Units 11:35 05:44 Sodium 138 137 (137-145) mmol/L Potassium 5.2 H 4.5 (3.5-5.1) mmol/L Chloride 105 105 (98-107) mmol/L Carbon Dioxide 25 23 (22-30) mmol/L BUN 17 17 (9-20) mg/dL Creatinine 0.84 0.73 (0.66-1.25) mg/dL Glucose 200 H 94 (74-99) mg/dL Calcium 9.7 9.3 (8.4-10.2) mg/dL AST 16 L (17-59) U/L ALT 24 (21-72) U/L Alkaline Phosphatase 93 (38-126) U/L Total Protein 7.3 (6.3-8.2) g/dL Albumin 4.1 (3.5-5.0) g/dL Current Medications Generic Name Dose Route Start Last Admin Trade Name Freq PRN Reason Stop Dose Admin Acetaminophen 650 mg 06/19/18 13:25 Tylenol Tab PO Q6HR PRN Mild Pain or Fever > 100.5 Hydrocodone Bitart/Acetaminophen 1 each 06/19/18 17:13 06/20/18 06:20 [place] 5-325 PO 1 each Q6HR PRN Administration Moderate Pain Aspirin 325 mg 06/20/18 09:00 Aspirin PO DAILY [facility] Atorvastatin Calcium 80 mg 06/19/18 21:00 06/19/18 20:05 Lipitor PO 80 mg HS [facility] Administration Bupropion HCl 150 mg 06/20/18 09:00 Wellbutrin Xl PO DAILY [facility] Cyclobenzaprine HCl 10 mg 06/19/18 22:00 06/19/18 21:39 Flexeril PO 10 mg TID [facility] Administration Heparin Sodium (Porcine) 5,000 unit 06/20/18 00:00 06/20/18 06:16 Heparin SQ 5,000 unit Q8HR [facility] Administration Sodium Chloride 1,000 mls @ 20 mls/hr 06/19/18 13:30 Saline 0.9% IV .Q24H [facility] Insulin Aspart 0 unit 06/19/18 17:30 06/19/18 21:35 Novolog SQ Not Given ACHS [facility] Protocol Ketorolac Tromethamine 30 mg 06/19/18 13:25 Toradol IVP 06/24/18 13:26 Q6HR PRN Moderate Pain Lisinopril 2.5 mg 06/20/18 09:00 Zestril PO DAILY [facility] Lorazepam 0.5 mg 06/19/18 13:25 Ativan PO Q6HR PRN Anxiety Naloxone HCl 0.2 mg 06/19/18 13:25 Narcan IV Q2M PRN Opioid Reversal Ondansetron HCl 4 mg 06/19/18 13:25 Zofran IVP Q8HR PRN Nausea And Vomiting Pantoprazole Sodium 40 mg 06/20/18 09:00 Protonix IV DAILY [facility] Paroxetine HCl 40 mg 06/20/18 09:00 Paxil PO DAILY [facility] Quetiapine Fumarate 50 mg 06/19/18 21:00 06/19/18 20:05 Seroquel PO 50 mg BID [facility] Administration Intake and Output 06/19/18 06/20/18 06/20/18 22:59 06:59 14:59 Intake Total 222 Balance 222 Intake: Oral 222 Other: Voiding Method Toilet Toilet # Voids 1 2 06/19/18 11:35 06/20/18 05:44
--- NOTE | 2018-06-20 22:37 | P.DS ---
Providers Date of admission: 06/19/18 13:07 Expected date of discharge: 06/20/18 Attending physician: Rolf Bradshaw Consults: 06/19/18 13:25 Consult Physician Stat Consulting Provider: Verona Courtney Consult Reason/Comments: chest pain Do you want consulting provider notified?: Yes Primary care physician: Stated None Hospital Course: Discharge diagnosis Atypical chest pain patient with known history of coronary artery disease and stent placement. Ruled out ACS. Coronary artery disease with history of stent placement 3. Most recent PTCA in 2017 Hypertension Diabetes type 2. [id number] Severe nicotine addiction Anxiety/depression Chronic pain with back pain and pain procedures. Lumbar disc degenerative disease History of HI 2 GERD Osteoarthritis Asthma stable Migraine headaches DVT prophylaxis with heparin subcu Hospital course Patient is a 47-year-old male with a known history of hypertension, diabetes type 2, anxiety/depression, coronary artery disease with history of stent placement 3 initially in 2013 came to ER with complaints of chest pain and shortness of breath. Patient has been having chest pain for the past 3 days on and off lasting almost whole day. No radiation. No associated nausea vomiting. Patient does have dizziness or lightheaded. Denied any recent illnesses. No dysuria or hematuria. Patient currently everyday smoker.Patient states that he was concerned with the persistent pain which made him come to ER. Chest x-ray showed no cardiopulmonary process. EKG showed sinus tachycardia. Pulse ox 97% on room air. 06/20/2018 Patient denied any chest pain today. Patient was seen by cardiology. Metoprolol has been added to his medications. Counseled extensively for patient complaints and smoking cessation. Patient had negative stress test 3 months ago. Patient did improve symptomatically. Recommend follow-up as an outpatient. Stable to be discharged home otherwise. PHYSICAL EXAMINATION: Patient is lying in the bed comfortably, no acute distress, awake alert and oriented.. HEENT: Normocephalic. Neck is supple. Pupils reactive. Nostrils clear. Oral cavity is moist. Ears reveal no drainage. Neck reveals no JVD, carotid bruits, or thyromegaly. CHEST EXAMINATION: Trachea is central. Symmetrical expansion. Lung briones clear to auscultation and percussion. CARDIAC: Normal S1, S2 with no gallops. No murmurs ABDOMEN: Soft. Bowel sounds normal. No organomegaly. No abdominal bruits. Extremities: reveal no edema. No clubbing or cyanosis Neurologically awake, alert, oriented x3 with well-coordinated movements. No focal deficits noted Skin: No rash or skin lesions. Psychiatric: Coperative. Nonsuicidal Musculoskeletal: No joint swelling or deformity. Normal range of motion. Vital Signs - 24 hr 06/19/18 06/20/18 06/20/18 23:49 00:00 03:43 Temperature 98.3 F Pulse Rate [ 88 88 88 Pulse Oximetery ] Respiratory 18 18 18 Rate Blood Pressure 138/72 [Right Arm] O2 Sat by Pulse 94 L Oximetry 06/20/18 06/20/18 06/20/18 03:45 08:00 12:00 Temperature 98.4 F 98.3 F 97.5 F L Pulse Rate [ 89 99 90 Pulse Oximetery ] Respiratory 18 18 16 Rate Blood Pressure 114/63 121/70 128/73 [Right Arm] O2 Sat by Pulse 96 97 94 L Oximetry Patient Condition at Discharge: Stable Plan - Discharge Summary Discharge Rx Participant: Yes New Discharge Prescriptions: New Metoprolol Tartrate [Lopressor] 25 mg PO BID #60 tab Continue Lisinopril [Zestril] 2.5 mg PO DAILY #90 tab Atorvastatin [Lipitor] 80 mg PO HS #90 tab buPROPion XL [Wellbutrin XL] 150 mg PO DAILY #30 tab.er.24h Cyclobenzaprine [Flexeril] 10 mg PO TID #90 tab Nateglinide 60 mg PO AC-TID #90 tablet PARoxetine HCL [Paxil] 40 mg PO DAILY #30 tablet QUEtiapine [SEROquel] 50 mg PO BID #60 tab sitaGLIPtin [Januvia] 100 mg PO DAILY #30 tab Aspirin 325 mg PO DAILY Discharge Medication List Atorvastatin [Lipitor] 80 mg PO HS #90 tab 04/02/18 [Rx] Cyclobenzaprine [Flexeril] 10 mg PO TID #90 tab 04/02/18 [Rx] Lisinopril [Zestril] 2.5 mg PO DAILY #90 tab 04/02/18 [Rx] Nateglinide 60 mg PO AC-TID #90 tablet 04/02/18 [Rx] PARoxetine HCL [Paxil] 40 mg PO DAILY #30 tablet 04/02/18 [Rx] QUEtiapine [SEROquel] 50 mg PO BID #60 tab 04/02/18 [Rx] buPROPion XL [Wellbutrin XL] 150 mg PO DAILY #30 tab.er.24h 04/02/18 [Rx] sitaGLIPtin [Januvia] 100 mg PO DAILY #30 tab 04/02/18 [Rx] Aspirin 325 mg PO DAILY 06/19/18 [History] Metoprolol Tartrate [Lopressor] 25 mg PO BID #60 tab 06/20/18 [Rx] Follow up Appointment(s)/Referral(s): None,Stated [Primary Care Provider] - 1-2 days Verona Courtney MD [STAFF PHYSICIAN] - 06/26/18 3:15 pm Patient Instructions/Handouts: Chest Pain (DC) Discharge Disposition: HOME SELF-CARE
[2018-06-21] MEDS ORDERED: PANTOPRAZOLE 40 MG TABLET PO SCH (07:30)
== END 2018-06-20 14:26 | disposition home or self-care (01) ==
LOC: EC 11:07 → 1SOBS 13:07
PROVIDERS: ADMIT Hospitalist; ATTEND Hospitalist
DX: R07.89 Other chest pain (principal); R42 Dizziness and giddiness; E11.9 Type 2 diabetes mellitus without complications; E66.9 Obesity, unspecified; Z68.32 Body mass index [BMI] 32.0-32.9, adult; E78.5 Hyperlipidemia, unspecified; F17.200 Nicotine dependence, unspecified, uncomplicated; F32.9 Major depressive disorder, single episode, unspecified; F41.9 Anxiety disorder, unspecified; I10 Essential (primary) hypertension; I25.10 Atherosclerotic heart disease of native coronary artery without angina pectoris; G43.909 Migraine, unspecified, not intractable, without status migrainosus; J45.909 Unspecified asthma, uncomplicated; K21.9 Gastro-esophageal reflux disease without esophagitis; M19.90 Unspecified osteoarthritis, unspecified site; M51.36 Other intervertebral disc degeneration, lumbar region; Z79.4 Long term (current) use of insulin; I25.2 Old myocardial infarction; Z71.6 Tobacco abuse counseling; Z95.5 Presence of coronary angioplasty implant and graft; Z79.82 Long term (current) use of aspirin; Z79.899 Other long term (current) drug therapy; Z82.49 Family history of ischemic heart disease and other diseases of the circulatory system; Z83.3 Family history of diabetes mellitus
CPT/HCPCS: 96372; 96374; 96361; 99285; 36415; 93005; 85379; 83880; 80061; 80053; 80048; 84443; 82150; 82550; 82553; 83690; 83735; 84484; 85025; 85610; 85730; 71046; G0378 ×2; J1644; C9113

== ENCOUNTER 2021-03-05 18:28 | Inpatient (IN) | payer OTHER ==
[2021-03-05 20:37] LABS: Glucose,Whole Blood 266 mg/dL (75-99)
--- NOTE | 2021-03-05 21:09 | XR ---
EXAMINATION TYPE: XR chest 2V DATE OF EXAM: 03/05/2021 COMPARISON: 06/19/2018 HISTORY: Short of breath TECHNIQUE: FINDINGS: There is no heart failure nor confluent pneumonic infiltrate. Costophrenic angles are clear . There are chest leads. IMPRESSION: No active cardiopulmonary disease. Normal heart. No change.
[2021-03-05 21:17] LABS: Basophils # (A) 0.1 k/uL (0-0.2); Basophils % (A) 2 %; Eosinophils % (A) 0 %; HCT 52.3 % (39.0-53.0); HGB 18.3 gm/dL (13.0-17.5); Lymphocytes # (A) 1.2 k/uL (1.0-4.8); Lymphocytes % (A) 21 %; MCH 31.5 pg (25.0-35.0); MCV 89.9 fL (80.0-100.0); Mean Platelet Volume 7.4; Monocytes # (A) 0.4 k/uL (0-1.0); Monocytes % (A) 6 %; Neutrophils # (A) 3.9 k/uL (1.3-7.7); Neutrophils % (A) 70 %; Platelet Count 156 k/uL (150-450); RBC 5.82 m/uL (4.30-5.90); RDW 12.1 % (11.5-15.5); WBC 5.6 k/uL (3.8-10.6)
[2021-03-05 21:29] LABS: Partial Thromboplastin Time 25.4 sec (22.0-30.0); Prothrombin Time 10.5 sec (9.0-12.0)
[2021-03-05 21:30] LABS: ALT 73 U/L (4-49); AST 77 U/L (17-59); African American GFR (CKD) >90 (>60 ml/min/1.73 sqM); Albumin 4.3 g/dL (3.5-5.0); Alkaline Phosphatase 119 U/L (38-126); Anion Gap 12 mmol/L; Blood Urea Nitrogen 10 mg/dL (9-20); Carbon Dioxide 17 mmol/L (22-30); Chloride 98 mmol/L (98-107); Creatine Kinase 425 U/L (55-170); Glucose 257 mg/dL (74-99); Lipase 67 U/L (23-300); Magnesium 1.9 mg/dL (1.6-2.3); Non-African American GFR(CKD) >90 (>60 ml/min/1.73 sqM); Potassium 4.4 mmol/L (3.5-5.1); Sodium 127 mmol/L (137-145); Total Bilirubin 0.8 mg/dL (0.2-1.3); Total Protein 7.6 g/dL (6.3-8.2)
--- NOTE | 2021-03-05 21:49 | ED ---
Chest Pain HPI - General Chief Complaint: Chest Pain Stated Complaint: chest pain, SOB Time Seen by Provider: 03/05/21 20:27 Source: patient, RN notes reviewed Mode of arrival: ambulatory Limitations: no limitations - History of Present Illness Initial Comments: 50-year-old male history of heart disease diabetes who complains of headache decreased oral intake increased blood sugar increased blood pressure past several days with some intermittent fevers chills sweats he has of a history of COPD also is had a cough some chest discomfort. No other current complaints or modifying factors MD Complaint: chest pain, other - Related Data Home Medications Medication Instructions Recorded Confirmed Aspirin 325 mg PO DAILY 06/19/18 06/19/18 Previous Rx's Medication Instructions Recorded Atorvastatin [Lipitor] 80 mg PO HS #90 tab 04/02/18 Cyclobenzaprine [Flexeril] 10 mg PO TID #90 tab 04/02/18 Nateglinide [Starlix] 60 mg PO AC-TID #90 tablet 04/02/18 PARoxetine HCL [Paxil] 40 mg PO DAILY #30 tablet 04/02/18 QUEtiapine [SEROquel] 50 mg PO BID #60 tab 04/02/18 buPROPion XL [Wellbutrin XL] 150 mg PO DAILY #30 tab.er.24h 04/02/18 lisinopriL [Zestril] 2.5 mg PO DAILY #90 tab 04/02/18 sitaGLIPtin [Januvia] 100 mg PO DAILY #30 tab 04/02/18 Metoprolol Tartrate [Lopressor] 25 mg PO BID #60 tab 06/20/18 Allergies Allergy/AdvReac Type Severity Reaction Status Date / Time diclofenac sodium Allergy Swelling Verified 03/05/21 18:42 [From Arthrotec] misoprostol [From Arthrotec] Allergy Swelling Verified 03/05/21 18:42 Review of Systems ROS Statement: Those systems with pertinent positive or pertinent negative responses have been documented in the HPI. ROS Other: All systems not noted in ROS Statement are negative. EKG Findings - EKG Results: EKG: interpreted by KENYATTA, sinus rhythm (Sinus tachycardia rate of 117. We'll 1:30 QRS duration 86 QT since QTC 324/451 right. [place] deviation nonspecific anterior configuration) Past Medical History Past Medical History: Asthma, Chest Pain / Angina, Diabetes Mellitus, GERD/ Reflux, Hyperlipidemia, Hypertension, Myocardial Infarction (CT), Osteoarthritis (OA) Additional Past Medical History / Comment(s): ARTHRITIS multiple joints, CHRONIC PAIN, pinched nerves lumbar region, migraines. Last Myocardial Infarction Date:: 07/2016 History of Any Multi-Drug Resistant Organisms: None Reported Past Surgical History: Heart Catheterization With Stent, Orthopedic Surgery Additional Past Surgical History / Comment(s): 2016 heart cath w/stent, 10/10/14 PTCA with stent to proximal LAD, LEFT KNEE ARTHROSCOPY, R wrist CARPAL TUNNEL, LEFT and right HAND TRIGGER FINGER RELEASE, pain clinic procedures-lumbar/sacral areas. Past Anesthesia/Blood Transfusion Reactions: Postoperative Nausea & Vomiting (PONV) Additional Past Anesthesia/Blood Transfusion Reaction / Comment(s): never recieved blood Date of Last Stent Placement:: 2014 Past Psychological History: Anxiety, Depression Past Alcohol Use History: None Reported Past Drug Use History: Marijuana - Past Family History Father Family Medical History: Congestive Heart Failure (CHF), Coronary Artery Disease (CAD) Additional Family Medical History / Comment(s): Father at the age of 63 yrs from cardiac aneurysm. Mother Family Medical History: Diabetes Mellitus, Hypertension, Osteoarthritis (OA) Additional Family Medical History / Comment(s): Back problems General Exam - General Exam Comments Initial Comments: This is a well-developed well-nourished awake alert oriented 3 male Limitations: no limitations General appearance: alert, in no apparent distress Head exam: Present: atraumatic, normocephalic, normal inspection Eye exam: Present: normal appearance, PERRL, EOMI. Absent: scleral icterus, conjunctival injection, periorbital swelling ENT exam: Present: mucous membranes dry Neck exam: Present: normal inspection, full ROM. Absent: tenderness, meningismus, lymphadenopathy Respiratory exam: Present: decreased breath sounds. Absent: respiratory distress, wheezes, rales, rhonchi, stridor Cardiovascular Exam: Present: normal rhythm, tachycardia, normal heart sounds. Absent: systolic murmur, diastolic murmur, rubs, gallop, clicks GI/Abdominal exam: Present: soft, normal bowel sounds. Absent: distended, tenderness, guarding, rebound, rigid Extremities exam: Present: normal inspection, full ROM, normal capillary refill. Absent: tenderness, pedal edema, joint swelling, calf tenderness Back exam: Present: normal inspection Neurological exam: Present: alert, oriented X3, CN II-XII intact Psychiatric exam: Present: normal affect, normal mood Skin exam: Present: warm, dry, intact, normal color. Absent: rash Course Vital Signs 03/05/21 18:38 Temperature 101.5 F H Pulse Rate 125 H Respiratory 18 Rate Blood Pressure 125/85 O2 Sat by Pulse 98 Oximetry Chest Pain MDM - MDM Initial imaging reviewed x-ray shows no acute processes at this time CAT scan is pending. Long discussion with patient regarding the findings and symptoms he's been experiencing. The patient is a diabetic history of heart disease with 3 stents. He's been having intermittent chest pains along with his other symptoms for the past 2 days. Initial EKG showed no evidence of acute findings at this time however in light of his past history and he does say he's not been taking medications for quite a while he will be admitted I did discuss case with Dr. Adams. Patient will be admitted with cardiology evaluation. He is COVID-19 positive on testing. Disposition Clinical Impression: Atypical chest pain, COVID-19, Hyperglycemia, Febrile illness, acute, Viral syndrome Disposition: ADMITTED IP TO THIS HOSP Condition: Fair Referrals: None,Stated [Primary Care Provider] - 1-2 days
[2021-03-05] MEDS ORDERED: ALBUTEROL HFA INHALER INHALATION STA (22:31)
[2021-03-05] MEDS ORDERED: SODIUM CHLORIDE 0.9% 1,000 ML IV STA (23:03)
[2021-03-05] MEDS ORDERED: NITROGLYCERIN SL TABS 0.4 MG TAB SUBLINGUAL PRN (23:04)
[2021-03-05 23:35] LABS: C Reactive Protein 4.6 mg/dL (<1.0); Magnesium 1.9 mg/dL (1.6-2.3)
--- NOTE | 2021-03-05 23:58 | CT ---
EXAMINATION TYPE: CT angio chest DATE OF EXAM: 03/05/2021 COMPARISON: 05/24/2017 HISTORY: Elevated d-dimer. Chest pain CT DLP: 685.8 mGycm Automated exposure control for dose reduction was used. CONTRAST: Performed with IV Contrast, patient injected with 80 mL of Isovue 370. There are 3-D post processed images. There is no evidence of a pulmonary mass. There is no consolidation. There is no pleural effusion. Th ere are some reticular interstitial infiltrate in the lateral left lower lobe. There is fatty infiltr ation of the liver. Heart size is normal. There are multiple enlarged bronchial lymph nodes that vicky ure up to 1.5 cm. There is no significant mediastinal adenopathy. Thoracic aorta is intact. There is no aneurysm or dissection. There is normal contrast opacification of the pulmonary arteries. There are no filling defects. The ribs appear intact. Thoracic spine is in tact. IMPRESSION: No evidence of pulmonary embolism. There is some minimal reticular interstitial infiltrate left lower lobe. Pulmonary infiltrates mostly cleared compared to old exam. Normal heart. There is bilateral bronchial adenopathy that is increased compared to old exam.
--- NOTE | 2021-03-06 01:15 | P.HPIM ---
History of Present Illness H&P Date: 03/06/21 The patient is a 50-year-old male with a PMH of coronary artery disease status post 3 stents, type II DM, hypertension, hyperlipidemia, noncompliance to medications and has not seen a physician for several years presented to the emergency room with complaints of shortness of breath and chest pain. The patient reports that his symptoms started 3-4 days ago, and have gradually progressed. The patient did not receive a coronavirus vaccine. He reports having a nonproductive cough, fever, with subsequent left-sided sharp chest pain, pleuritic, 8 out of 10 of maximal intensity, non-exertional. The patient denied palpitations, nausea, vomiting, diaphoresis. He further denied abdominal pain, diarrhea, weakness, numbness, tingling, headaches, visual disturbances. In the emergency room, the patient was febrile with a T-max of 11.5 and tachycardic with pulse 125 on admission. Furthermore chest CTA was negative for pulmonary embolism but did show bilateral adenopathy and pulmonary infiltrates. EKG reveals sinus tachycardia at 117 bpm with a right axis deviation. Laboratory evaluation is remarkable for positive coronavirus PCR, sodium 127, CO2 17, glucose 257, AST 77, LDL 73, LDH 641, CK 425, troponin less than 0.012, and CRP 4.6. Patient was admitted for chest pain rule out ACS along with coronavirus. Review of systems: Pertinent positives and negatives as discussed in HPI, a complete review of systems was performed and all other systems are negative. Physical examination: General: non toxic, no distress, appears at stated age, obese Derm: no unusual rashes/lesions no unusual ecchymoses, warm, dry Head: atraumatic, normocephalic, symmetric Eyes: EOMI, no lid lag, anicteric sclera, pupils equal round reactive to light ENT: Nose and ears atraumatic, no thrush, no pharyngeal erythema Neck: No thyromegaly, no cervical lymphadenopathy, trachea midline, supple Mouth: no lip lesion, mucus membranes moist Cardiovascular: S1S2 reg, no murmur, positive posterior tibial pulse bilateral, no edema, capillary refill less than 2 seconds Lungs: Bilateral scattered rhonchi, no rales , no accessory muscle use Abdominal: soft, nontender to palpation, no guarding, no appreciable organomegaly, normal bowel sounds Ext: no gross muscle atrophy, muscle strength 5 out of 5 in all 4 extremities grossly, no contractures, Neuro: CN II-XI grossly intact, light touch intact all 4 extremities, finger to nose within normal limits, Psych: Alert, oriented, appropriate affect Assessment/plan Atypical Chest pain, rule out ACS -Trend troponin -Cardiac monitoring -Cardiology consult COVID-19 pneumonitis -Patient not requiring supplemental oxygen at this time Hyponatremia -Continue gentle hydration and monitor for now Abnormal LFTs -Likely due to ongoing infection -Monitor for now Type II DM with hyperglycemia -Check A1c -Lispro insulin sliding scale and blood glucose monitoring -Start Levemir 10 units daily at bedtime DVT prophylaxis -Heparin subcu The patient is admitted with an anticipated less than 2 midnight stay for evaluation of chest pain CODE STATUS: Full Code Discussed with: Patient Anticipated discharge date: in am Anticipated discharge place: Home Past Medical History Past Medical History: Asthma, Chest Pain / Angina, Diabetes Mellitus, GERD/Reflux, Hyperlipidemia, Hypertension, Myocardial Infarction ([place]), Oste oarthritis (OA) Additional Past Medical History / Comment(s): ARTHRITIS multiple joints, CHRONIC PAIN, pinched nerves lumbar region, migraines. Last Myocardial Infarction Date:: 07/2016 History of Any Multi-Drug Resistant Organisms: None Reported Past Surgical History: Heart Catheterization With Stent, Orthopedic Surgery Additional Past Surgical History / Comment(s): 2016 heart cath w/stent, 10/10/14 PTCA with stent to proximal LAD, LEFT KNEE ARTHROSCOPY, R wrist CARPAL TUNNEL, LEFT and right HAND TRIGGER FINGER RELEASE, pain clinic procedures-lumbar/sacral areas. Past Anesthesia/Blood Transfusion Reactions: Postoperative Nausea & Vomiting (PONV) Additional Past Anesthesia/Blood Transfusion Reaction / Comment(s): never recieved blood Date of Last Stent Placement:: 2014 Past Psychological History: Anxiety, Depression Past Alcohol Use History: None Reported Past Drug Use History: Marijuana - Past Family History Father Family Medical History: Congestive Heart Failure (CHF), Coronary Artery Disease (CAD) Additional Family Medical History / Comment(s): Father at the age of 63 yrs from cardiac aneurysm. Mother Family Medical History: Diabetes Mellitus, Hypertension, Osteoarthritis (OA) Additional Family Medical History / Comment(s): Back problems Medications and Allergies Home Medications Medication Instructions Recorded Confirmed Type Dm/Acetaminophen/Doxylamine [Vicks 1 cap PO HS PRN 03/05/21 03/05/21 History Nyquil Liquicaps] Pseudoephedrine HCl [Sudafed] 60 mg PO DAILY PRN 03/05/21 03/05/21 History Allergies Allergy/AdvReac Type Severity Reaction Status Date / Time diclofenac sodium Allergy Swelling Verified 03/05/21 23:28 [From Arthrotec] misoprostol [From Arthrotec] Allergy Swelling Verified 03/05/21 23:28 Physical Exam Vitals: Vital Signs Temp Pulse Resp BP Pulse Ox 03/05/21 23:54 99.0 F 108 H 18 116/65 95 03/05/21 18:38 101.5 F H 125 H 18 125/85 98 Intake and Output 03/05/21 03/05/21 03/06/21 14:59 22:59 06:59 Other: Weight 99.79 kg Results CBC & Chem 7: 03/05/21 20:37 03/05/21 20:37 Labs: Abnormal Lab Results - Last 24 Hours (Table) 03/05/21 03/05/21 03/05/21 Range/Units 20:35 20:37 20:37 Hgb 18.3 H (13.0-17.5) gm/dL D-Dimer 0.79 H (<0.60) mg/L FEU Sodium (137-145) mmol/L Carbon Dioxide (22-30) mmol/L Glucose (74-99) mg/dL POC Glucose (mg/dL) 266 H (75-99) mg/dL AST (17-59) U/L ALT (4-49) U/L Lactate Dehydrogenase (313-618) U/L Creatine Kinase (55-170) U/L C-Reactive Protein (<1.0) mg/dL Coronavirus (PCR) (Not Detectd) 03/05/21 03/05/21 03/05/21 Range/Units 20:37 20:37 21:01 Hgb (13.0-17.5) gm/dL D-Dimer (<0.60) mg/L FEU Sodium 127 L (137-145) mmol/L Carbon Dioxide 17 L (22-30) mmol/L Glucose 257 H (74-99) mg/dL POC Glucose (mg/dL) (75-99) mg/dL AST 77 H (17-59) U/L ALT 73 H (4-49) U/L Lactate Dehydrogenase 641 H (313-618) U/L Creatine Kinase 425 H (55-170) U/L C-Reactive Protein 4.6 H (<1.0) mg/dL Coronavirus (PCR) Detected A (Not Detectd)
[2021-03-06] MEDS ORDERED: ALBUTEROL HFA INHALER INHALATION SCH (02:00)
[2021-03-06] MEDS: INSULIN DETEMIR (LEVEMIR) 100 UNIT/ML SYR SQ SCH ×2 (02:58→20:37)
[2021-03-06] MEDS: ACETAMINOPHEN TAB 325 MG TAB PO PRN ×3 (02:58→23:24)
[2021-03-06 02:59] LABS: Glucose,Whole Blood 255 mg/dL (75-99)
[2021-03-06 05:18] LABS: INR 0.9 (<1.2); Partial Thromboplastin Time 24.5 sec (22.0-30.0); Prothrombin Time 10.1 sec (9.0-12.0)
[2021-03-06 07:13] LABS: Glucose,Whole Blood 221 mg/dL (75-99)
[2021-03-06] MEDS: INSULIN ASPART (NovoLOG) 100 UNIT/ML VIAL SQ SCH ×4 (07:20→20:36)
[2021-03-06] MEDS: HEPARIN SODIUM,PORCINE/PF 5,000 UNIT/0.5 ML SYRINGE SQ SCH ×3 (07:21→23:17)
[2021-03-06] MEDS ORDERED: ASPIRIN 81 MG PO STA (09:55)
[2021-03-06] MEDS: ALBUTEROL HFA INHALER INHALATION SCH ×4 (10:00→19:39)
[2021-03-06] MEDS: ATORVASTATIN 40 MG TAB PO SCH (10:44)
[2021-03-06] MEDS: METOPROLOL TARTRATE 25 MG TAB PO SCH ×2 (10:44→20:37)
[2021-03-06 12:47] LABS: Glucose,Whole Blood 205 mg/dL (75-99)
[2021-03-06 15:34] LABS: Hemoglobin A1C 10.2 % (4.0-6.0)
--- NOTE | 2021-03-06 15:51 | CONS ---
CONSULTATION This is a 50-year-old gentleman with a history of multivessel PCI. Last PCI was in 2017 or 2018 of PLV branch of RCA. He came into the hospital with chest pain, very atypical. He is COVID-positive. There is also a question of a small area of infiltrate on his CT scan. His pain has resolved. Pain was very atypical, sharp in nature, lasted a few seconds. Two sets of troponins and two EKGs are unremarkable. He is resting comfortably without symptoms. I did not examine the patient. I explained to him that I will assess an echocardiogram, resume beta sangeeta, aspirin, Lipitor, and will see him if he has any significant symptoms. Otherwise, he will follow up with Dr. Medina as an outpatient. IMPRESSION: 1. Atypical chest pain. 2. History of coronary artery disease with multivessel PCI. 3. Probable COVID pneumonia with some COVID infection. Patient is not vaccinated. 4. Hyperlipidemia. RECOMMENDATIONS: I will see the patient if there is an absolute need. He is COVID-positive without previous vaccination. I am asking that we resume beta sangeeta, aspirin and Lipitor. Troponins are negative. EKG is unremarkable. We will see him p.r.n. MMODL / IJN: [id number] /
[2021-03-06 17:15] LABS: Ferritin 1465.5 ng/mL (22.0-322.0)
[2021-03-06 18:10] LABS: Glucose,Whole Blood 256 mg/dL (75-99)
[2021-03-06 20:35] LABS: Glucose,Whole Blood 245 mg/dL (75-99)
[2021-03-06] MEDS ORDERED: INSULIN DETEMIR (LEVEMIR) 100 UNIT/ML SYR SQ SCH (21:00)
[2021-03-06] MEDS ORDERED: IPRATROPIUM-ALBUTEROL 3 ML NEB INHALATION PRN (23:41)
[2021-03-07 06:10] LABS: Glucose,Whole Blood 161 mg/dL (75-99)
[2021-03-07] MEDS: INSULIN ASPART (NovoLOG) 100 UNIT/ML VIAL SQ SCH ×2 (06:11→12:44)
[2021-03-07] MEDS ORDERED: IPRATROPIUM-ALBUTEROL 3 ML NEB INHALATION SCH (08:00)
[2021-03-07] MEDS ORDERED: ALBUTEROL HFA INHALER INHALATION PRN (08:14)
[2021-03-07 08:18] LABS: African American GFR (CKD) >90 (>60 ml/min/1.73 sqM); Anion Gap 11 mmol/L; Blood Urea Nitrogen 11 mg/dL (9-20); Calcium 8.6 mg/dL (8.4-10.2); Carbon Dioxide 20 mmol/L (22-30); Chloride 98 mmol/L (98-107); Glucose 175 mg/dL (74-99); Non-African American GFR(CKD) >90 (>60 ml/min/1.73 sqM); Sodium 129 mmol/L (137-145)
[2021-03-07] MEDS ORDERED: ASPIRIN 81 MG PO SCH (09:00)
[2021-03-07] MEDS: ATORVASTATIN 40 MG TAB PO SCH (09:14)
[2021-03-07] MEDS: HEPARIN SODIUM,PORCINE/PF 5,000 UNIT/0.5 ML SYRINGE SQ SCH (09:14)
[2021-03-07] MEDS: ACETAMINOPHEN TAB 325 MG TAB PO PRN (09:15)
[2021-03-07] MEDS: ALBUTEROL HFA INHALER INHALATION SCH ×3 (09:15→15:43)
[2021-03-07] MEDS: METOPROLOL TARTRATE 25 MG TAB PO SCH (09:15)
[2021-03-07] MEDS ORDERED: FLUTICASONE 50MCG/SPRAY NASAL 16GM EA NOSTRIL PRN (09:27)
[2021-03-07] MEDS ORDERED: NICOTINE 21MG/24HR PATCH TRANSDERM SCH (09:30)
--- NOTE | 2021-03-07 10:13 | ECHOF ---
Referral Reason:chest pain MEASUREMENTS -------- HEIGHT: 180.3 cm WEIGHT: 99.8 kg BP: 127/65 RVIDd: 3.0 cm (< 3.3) IVSd: 1.4 cm (0.6 - 1.1) LVIDd: 3.6 cm (3.9 - 5.3) LVPWd: 1.4 cm (0.6 - 1.1) IVSs: 1.9 cm LVIDs: 2.8 cm LVPWs: 2.0 cm LA Diam: 3.1 cm (2.7 - 3.8) Ao Diam: 3.2 cm (2.0 - 3.7) MV EXCURSION: 12.842 mm (> 18.000) MV EF SLOPE: 118 mm/s (70 - 150) EPSS: 0.6 cm MV E Deep: 0.77 m/s MV DecT: 141 ms MV A Deep: 0.80 m/s MV E/A Ratio: 0.96 RAP: 5.00 mmHg RVSP: 25.25 mmHg FINDINGS -------- Sinus rhythm. This was a technically difficult study with suboptimal views. The left ventricular size is normal. There is moderate concentric left ventricular hypertrophy. O verall left ventricular systolic function is normal with, an EF between 60 - 65 %. The right ventricle is normal in size. The left atrium is normal in size. The right atrium is normal in size and function. 5 ml Lumason used The aortic valve is trileaflet, and appears structurally normal. No aortic stenosis or regurgitation. The mitral valve is normal. Mild tricuspid regurgitation present. Right ventricular systolic pressure is normal at < 35 mmHg. The pulmonic valve was not well visualized. The aortic root size is normal. The inferior vena cava was not well visualized. There is no pericardial effusion. CONCLUSIONS -------- 1. The left ventricular size is normal. 2. There is moderate concentric left ventricular hypertrophy. 3. Overall left ventricular systolic function is normal with, an EF between 60 - 65 %. 4. 5 ml Lumason used 5. The aortic valve is trileaflet, and appears structurally normal. No aortic stenosis or regurgitati on. 6. Mild tricuspid regurgitation present. 7. There is no pericardial effusion. [employer] REPAIR TECHNICIAN: Kelly Gonzalze RDCS
--- NOTE | 2021-03-07 11:21 | P.DS ---
Providers Date of admission: 03/05/21 23:04 Expected date of discharge: 03/07/21 Attending physician: Paty Adams MD Consults: 03/05/21 23:04 Consult Physician Urgent Consulting Provider: Felipe Medina Consult Reason/Comments: Atypical chest pain history of angioplasty and stents Do you want consulting provider notified?: Yes 03/07/21 09:44 Consult Physician Routine Consulting Provider: Shelley Pradhan Consult Reason/Comments: covid Do you want consulting provider notified?: Yes Primary care physician: Stated None Hospital Course: The patient is a 50-year-old male with a PMH of coronary artery disease status post 3 stents, type II DM, hypertension, hyperlipidemia, noncompliance to medications and has not seen a physician for several years presented to the emergency room with complaints of shortness of breath and chest pain. The patient did not receive a coronavirus vaccine. In the emergency room, chest CTA was negative for pulmonary embolism but did show bilateral adenopathy and pulmonary infiltrates. EKG reveals sinus tachycardia at 117 bpm with a right axis deviation. Patient was placed in observation. ACS ruled out. He was seen and evaluated by cardiology. Echocardiogram showed preserved ejection fraction with no significant valvular or wall motion abnormalities. Patient was placed on optimize medical regimen with Lipitor, aspirin, and metoprolol. He was also advised to take vitamin C, vitamin D, and zinc. Counseled extensively regarding tobacco abuse. Patient will be discharged home in a stable condition. O2 sats remained greater than 90% on room air. Patient was also started on glipizide and metformin for uncontrolled diabetes with A1c of 10.5. He was advised to check his blood glucose closely at home and follow-up with a new primary care physician that I referred him to the next 10 days after isolation is done. He will be discharged home in a stable condition. Patient Condition at Discharge: Fair Plan - Discharge Summary Discharge Rx Participant: No New Discharge Prescriptions: New metFORMIN HCL [Glucophage] 500 mg PO BID #60 tab glipiZIDE [Glucotrol] 5 mg PO AC-TID #90 tab Atorvastatin [Lipitor] 40 mg PO DAILY #30 tab Metoprolol Tartrate [Lopressor] 25 mg PO BID #60 tab Aspirin 81 mg PO DAILY #30 tab Nicotine 21Mg/24Hr Patch [Habitrol] 1 patch TRANSDERM DAILY #30 patch Albuterol Inhaler [Ventolin Hfa Inhaler] 2 puff INHALATION RT-QID PRN #1 unit PRN Reason: Shortness Of Breath Or Wheezing Continue Dm/Acetaminophen/Doxylamine [Vicks Nyquil Liquicaps] 1 cap PO HS PRN PRN Reason: Cold Symptoms Discontinued Pseudoephedrine HCl [Sudafed] 60 mg PO DAILY PRN PRN Reason: Congestion Discharge Medication List Dm/Acetaminophen/Doxylamine [Vicks Nyquil Liquicaps] 1 cap PO HS PRN 03/05/21 [History] Albuterol Inhaler [Ventolin Hfa Inhaler] 2 puff INHALATION RT-QID PRN #1 unit 03/07/21 [Rx] Aspirin 81 mg PO DAILY #30 tab 03/07/21 [Rx] Atorvastatin [Lipitor] 40 mg PO DAILY #30 tab 03/07/21 [Rx] Metoprolol Tartrate [Lopressor] 25 mg PO BID #60 tab 03/07/21 [Rx] Nicotine 21Mg/24Hr Patch [Habitrol] 1 patch TRANSDERM DAILY #30 patch 03/07/21 [Rx] glipiZIDE [Glucotrol] 5 mg PO AC-TID #90 tab 03/07/21 [Rx] metFORMIN HCL [Glucophage] 500 mg PO BID #60 tab 03/07/21 [Rx] Follow up Appointment(s)/Referral(s): None,Stated [Primary Care Provider] - 1-2 days Wiliam Perez [STAFF PHYSICIAN] - 10 Days Discharge Disposition: HOME SELF-CARE
[2021-03-07 12:06] LABS: Glucose,Whole Blood 178 mg/dL (75-99)
[2021-03-07 12:43] VITALS: BP 122/60; PULSE 89; RESP 20; TEMP 98.8
--- NOTE | 2021-03-07 12:56 | P.CNPUL ---
History of Present Illness Consult date: 03/07/21 Reason for consult: dyspnea, chest pain History of present illness: This is a 50-year-old male patient who was hospitalized for shortness of breath and chest pain. His symptoms started around 4 days prior to his hospital admission. In fact the patient was having symptoms Saturday of last week. Mother the patient has not been vaccinated for COVID-19. He was having a nonproductive cough and a fever and some left-sided chest pain that was nonexertional. No nausea. No vomiting. No diarrhea. No abdominal pain. CT angiogram was done and the patient had no evidence of any pneumonias. Limited reactive lymphadenopathy which was small and nonpathologic. At the same time there was a vague early infiltration of the left lung base. The blood work showed a sodium level of 127. The patient had IV fluids and insulin level came up to 129. Serum bicarb was 17 and some currently up to 20. His renal function is stable. The patient had mild transaminitis with elevation of the AST ALT and the levels were 73 and 77 respectively, LDH level was 641 and CPK was 425. This is a troponins were negative. CRP level was 4.6. Progesterone level was 0.14. COVID-19 testing was positive. He is a poorly controlled diabetic and his HbA1c was at 10.2. His d-dimer was at 0.79. During the course of his hospitalization, the patient was seen by cardiology and acute coronary syndrome was ruled out. EKG was nonspecific. He is known to have CAD and he has had previous stents insertion. He has hypertension and hyperlipidemia and is also diabetic and he seems to poorly controlled based on the elevated HbA1c level. Currently is on room air oxygen. The patient is being considered for discharge today. Review of Systems Constitutional: Reports fatigue Eyes: denies as per HPI, denies blurred vision, denies bulging eye, denies decreased vision, denies diplopia, denies discharge, denies dry eye, denies irritation, denies itching, denies pain, denies photophobia, denies loss of peripheral vision, denies loss of vision, denies tunnel vision/blind spots Ears: deny: decreased hearing, ear discharge, earache, tinnitus Ears, nose, mouth and throat: Reports as per HPI Breasts: absent: as per HPI, gynecomastia Cardiovascular: Reports chest pain, Reports decreased exercise tolerance, Reports dyspnea on exertion Respiratory: Reports dyspnea Genitourinary: Reports as per HPI Musculoskeletal: Reports as per HPI Musculoskeletal: absent: ankle pain, ankle stiffness, ankle swelling, as per HPI, elbow pain, elbow stiffness, elbow swelling, foot pain, foot stiffness, foot swelling, hand pain, hand stiffness, hand swelling, hip pain, hip stiffness, hip swelling, knee pain, knee stiffness, knee swelling, shoulder pain, shoulder stiffness, shoulder swelling, wrist pain, wrist stiffness, wrist swelling Integumentary: Reports as per HPI Neurological: Reports as per HPI Psychiatric: Reports as per HPI Endocrine: Reports as per HPI Hematologic/Lymphatic: Reports as per HPI Allergic/Immunologic: Reports as per HPI Past Medical History Past Medical History: Asthma, Chest Pain / Angina, Diabetes Mellitus, GERD/Reflux, Hyperlipidemia, Hypertension, Myocardial Infarction ([place]), Osteoarth ritis (OA) Additional Past Medical History / Comment(s): ARTHRITIS multiple joints, CHRONIC PAIN, pinched nerves lumbar region, migraines. Last Myocardial Infarction Date:: 07/2016 History of Any Multi-Drug Resistant Organisms: None Reported Past Surgical History: Heart Catheterization With Stent, Orthopedic Surgery Additional Past Surgical History / Comment(s): 2016 heart cath w/stent, 10/10/14 PTCA with stent to proximal LAD, LEFT KNEE ARTHROSCOPY, R wrist CARPAL TUNNEL, LEFT and right HAND TRIGGER FINGER RELEASE, pain clinic procedures-lumbar/sacral areas. Past Anesthesia/Blood Transfusion Reactions: Postoperative Nausea & Vomiting (PONV) Additional Past Anesthesia/Blood Transfusion Reaction / Comment(s): never reci eved blood Date of Last Stent Placement:: 2014 Past Psychological History: Anxiety, Depression Additional Psychological History / Comment(s): Pt is . He has limitations with his activites r/t pain problems. pt does'nt drive, his mom takes him to appts. bp machine, glucometer Smoking Status: Current every day smoker Past Alcohol Use History: None Reported Additional Past Alcohol Use History / Comment(s): started smoking 1977- down to 06/11 PPD- declined smoking cessation booklet. Past Drug Use History: Marijuana Additional Drug Use History / Comment(s): Pt states he smokes marijuana for pain control. - Past Family History Father Family Medical History: Congestive Heart Failure (CHF), Coronary Artery Disease (CAD) Additional Family Medical History / Comment(s): Father at the age of 63 yrs from cardiac aneurysm. Mother Family Medical History: Diabetes Mellitus, Hypertension, Osteoarthritis (OA) Additional Family Medical History / Comment(s): Back problems Medications and Allergies Home Medications Medication Instructions Recorded Confirmed Type Dm/Acetaminophen/Doxylamine [Vicks 1 cap PO HS PRN 03/05/21 03/05/21 History Nyquil Liquicaps] Albuterol Inhaler [Ventolin Hfa 2 puff INHALATION RT-QID PRN #1 03/07/21 Rx Inhaler] unit Aspirin 81 mg PO DAILY #30 tab 03/07/21 Rx Atorvastatin [Lipitor] 40 mg PO DAILY #30 tab 03/07/21 Rx Metoprolol Tartrate [Lopressor] 25 mg PO BID #60 tab 03/07/21 Rx Nicotine 21Mg/24Hr Patch [Habitrol] 1 patch TRANSDERM DAILY #30 patch 03/07/21 Rx glipiZIDE [Glucotrol] 5 mg PO AC-TID #90 tab 03/07/21 Rx metFORMIN HCL [Glucophage] 500 mg PO BID #60 tab 03/07/21 Rx Allergies Allergy/AdvReac Type Severity Reaction Status Date / Time diclofenac sodium Allergy Swelling Verified 03/05/21 23:28 [From Arthrotec] misoprostol [From Arthrotec] Allergy Swelling Verified 03/05/21 23:28 Physical Exam Vitals: Vital Signs Temp Pulse Pulse Resp BP BP Pulse Ox 03/07/21 12:00 98.8 F 89 20 122/60 96 03/07/21 08:00 98.7 F 78 26 H 133/70 94 L 03/07/21 04:00 100.5 F H 100 18 121/70 97 03/06/21 23:20 101.1 F H 103 H 21 131/73 97 03/06/21 20:30 98.2 F 99 19 129/78 96 03/06/21 19:20 18 98 03/06/21 18:00 99.4 F 18 98 03/06/21 17:00 18 98 03/06/21 16:00 101.8 F H 94 18 125/66 98 03/06/21 15:00 77 18 03/06/21 14:00 80 18 03/06/21 13:00 80 18 Intake and Output 03/06/21 03/07/21 03/07/21 22:59 06:59 14:59 Intake Total 240 Balance 240 Intake: Oral 240 Other: Voiding Method Toilet Toilet # Voids 1 0 # Bowel Movements 0 Weight 99.79 kg 100 kg The patient appeared well nourished and normally developed. Vital signs as documented. Head exam is unremarkable. No scleral icterus or corneal arcus noted. Neck is without jugular venous distension, thyromegaly, or carotid bruits. Carotid upstrokes are brisk bilaterally. Lungs are clear to auscultation and percussion. Cardiac exam reveals the PMI to be normally sized and situated. Rhythm is regular. First and second heart sounds normal. No murmurs, rubs or gallops. Abdominal exam reveals normal bowel sounds, no masses, no organomegaly and no aortic enlargement. Extremities are nonedematous and both femoral and pedal pulses are normal.Examination of the skin revealed no evidence of significant rashes, suspicious appearing nevi or other concerning lesions.Neurologically, the patient is awake and alert and the patient does not have any focal neurological deficit. Cranial nerves are essentially intact. Results - Laboratory Findings CBC and BMP: 03/05/21 20:37 03/07/21 07:50 PT/INR, D-dimer PT 10.1 sec (9.0-12.0) 03/06/21 04:47 INR 0.9 (<1.2) 03/06/21 04:47 D-Dimer 0.79 mg/L FEU (<0.60) H 03/05/21 20:37 Abnormal lab findings: Abnormal Labs 03/05/21 03/05/21 03/05/21 20:35 20:37 20:37 Hgb 18.3 H D-Dimer 0.79 H Sodium Carbon Dioxide Glucose POC Glucose (mg/dL) 266 H Hemoglobin A1c Ferritin AST ALT Lactate Dehydrogenase Creatine Kinase C-Reactive Protein Procalcitonin Coronavirus (PCR) 03/05/21 03/05/21 03/05/21 20:37 20:37 21:01 Hgb D-Dimer Sodium 127 L Carbon Dioxide 17 L Glucose 257 H POC Glucose (mg/dL) Hemoglobin A1c Ferritin 1465.5 H AST 77 H ALT 73 H Lactate Dehydrogenase 641 H Creatine Kinase 425 H C-Reactive Protein 4.6 H Procalcitonin Coronavirus (PCR) Detected A 03/06/21 03/06/21 03/06/21 02:56 04:47 04:47 Hgb D-Dimer Sodium Carbon Dioxide Glucose POC Glucose (mg/dL) 255 H Hemoglobin A1c 10.2 H Ferritin AST ALT Lactate Dehydrogenase Creatine Kinase C-Reactive Protein Procalcitonin 0.14 H Coronavirus (PCR) 03/06/21 03/06/21 03/06/21 07:09 12:42 18:05 Hgb D-Dimer Sodium Carbon Dioxide Glucose POC Glucose (mg/dL) 221 H 205 H 256 H Hemoglobin A1c Ferritin AST ALT Lactate Dehydrogenase Creatine Kinase C-Reactive Protein Procalcitonin Coronavirus (PCR) 03/06/21 03/07/21 03/07/21 20:33 06:09 07:50 Hgb D-Dimer Sodium 129 L Carbon Dioxide 20 L Glucose 175 H POC Glucose (mg/dL) 245 H 161 H Hemoglobin A1c Ferritin AST ALT Lactate Dehydrogenase Creatine Kinase C-Reactive Protein Procalcitonin Coronavirus (PCR) 03/07/21 11:55 Hgb D-Dimer Sodium Carbon Dioxide Glucose POC Glucose (mg/dL) 178 H Hemoglobin A1c Ferritin AST ALT Lactate Dehydrogenase Creatine Kinase C-Reactive Protein Procalcitonin Coronavirus (PCR) - Diagnostic Findings Chest x-ray: image reviewed CT scan - chest: image reviewed Assessment and Plan Plan: 1 acute COVID-19 infection with some early limited infiltration of the left lung base no evidence of pulmonary embolism. The patient's pulse oximetry 96% on room air oxygen. He would be a good candidate for monoclonal antibiotic treatment based on his medical problems and comorbidities. Since his ho spitalized, I advised this patient to get discharged home to be worked out with outpatient monoclonal antibodies infusion either through emergency or [facility]. 2 shortness of breath, multifactorial, could be related to COVID-19. No oxygen desaturation at this point in time. Extremity markers were slightly elevated 3 coronary artery disease with previous coronary stenting 4 diabetes mellitus with poorly controlled blood sugar and elevated HbA1c level 5 hyperlipidemia 6 hypertension 7 obesity. 8 history of smoking 9 chronic pain 10 degenerative arthritis 11 migraines 12 nonspecific mediastinal lymphadenopathy, likely nonpathologic at the state. Plan Agree on discharging this patient home today once cleared by cardiology. In terms of his COVID-19 infection, the patient would benefit from monoclonal antibody infusions knowing that he has multiple comorbidities. Since is admitted to the hospital, he may not qualify pleural effusion. He can still however take it within next 24 hours. I advised him to come to the emergency to take the infusion or contact his primary care and get set up through [facility] for an outpatient monoclonal infusion. Also advised the patient to get a pulse oximeter and advised home oxygen saturation monitoring and come back to the hospital there is any worsening Social isolation and distance think and mask waiting for the next 10 days at least Continue same outpatient medical management Tighter blood sugar control and medical management for medicine
[2021-03-07 13:42] VITALS: BMI 30.7
[2021-03-07] MEDS ORDERED: CASIRIVIMAB/IMDEVIMAB (EUA) 1,200 MG in SODIUM CHLORIDE 0.9% 100 ML IVPB ONE (15:00)
[2021-03-07] MEDS ORDERED: SODIUM CHLORIDE 0.9% 50 ML IVPB ONE (15:30)
[2021-03-08 16:37] LABS: Chol/HDL Ratio 10.57; HDL Cholesterol 19.2 mg/dL (40.00-60.00); VLDL Calculation 39.8 mg/dL (5.00-40.00)
[2021-03-08 16:48] LABS: Blood Urea Nitrogen 11.4 mg/dL (9.0-27.0)
[2021-03-08 16:49] LABS: Non-African American GFR(CKD) 102.4 (60.0-200.0)
[2021-03-08 16:50] LABS: African American GFR (CKD) 118.7 (60.0-200.0); Calcium 9.6 mg/dL (8.7-10.3)
[2021-03-08 16:51] LABS: Albumin 4.7 g/dL (3.8-4.9); Total Bilirubin 0.5 mg/dL (0.30-1.20); Total Protein 8.1 g/dL (6.2-8.2)
== END 2021-03-07 16:44 | disposition home or self-care (01) | DRG 177 ==
LOC: EC 18:28 → 3SCARD 23:04
PROVIDERS: ADMIT Internal Medicine; ATTEND Internal Medicine
DX: U07.1 COVID-19 (principal); J12.82 Pneumonia due to coronavirus disease 2019; E87.1 Hypo-osmolality and hyponatremia; E11.65 Type 2 diabetes mellitus with hyperglycemia; J44.9 Chronic obstructive pulmonary disease, unspecified; K21.9 Gastro-esophageal reflux disease without esophagitis; E78.5 Hyperlipidemia, unspecified; I10 Essential (primary) hypertension; T50.916A Underdosing of multiple unspecified drugs, medicaments and biological substances, initial encounter; Z91.128 Patient's intentional underdosing of medication regimen for other reason; I25.10 Atherosclerotic heart disease of native coronary artery without angina pectoris; I25.2 Old myocardial infarction; G89.29 Other chronic pain; M15.9 Polyosteoarthritis, unspecified; R74.01 Elevation of levels of liver transaminase levels; F17.210 Nicotine dependence, cigarettes, uncomplicated; Z71.6 Tobacco abuse counseling; Z79.82 Long term (current) use of aspirin; Z79.84 Long term (current) use of oral hypoglycemic drugs; Z79.899 Other long term (current) drug therapy; Z86.69 Personal history of other diseases of the nervous system and sense organs; Z95.5 Presence of coronary angioplasty implant and graft; Z87.39 Personal history of other diseases of the musculoskeletal system and connective tissue; Z86.59 Personal history of other mental and behavioral disorders; Z98.890 Other specified postprocedural states; Z88.8 Allergy status to other drugs, medicaments and biological substances; Z82.49 Family history of ischemic heart disease and other diseases of the circulatory system; Z83.3 Family history of diabetes mellitus; Z82.61 Family history of arthritis
CPT/HCPCS: 36415; 71046; 71275; 80048; 80053; 80061; 82550; 82728; 83036; 83605; 83615; 83690; 83735; 83880; 84145; 84484; 85025; 85379; 85610; 85730; 86140; 87635; 93005; 93306; 94640; 99285

== ENCOUNTER 2022-11-04 14:04 | Inpatient (IN) | payer OTHER ==
[2022-11-04] MEDS ORDERED: SODIUM CHLORIDE 0.9% 1,000 ML IV STA (14:32)
[2022-11-04] MEDS ORDERED: ACETAMINOPHEN TAB 500 MG TAB PO STA (14:32)
--- NOTE | 2022-11-04 14:41 | ED ---
General Adult HPI - General Chief complaint: Abdominal Pain Stated complaint: abd pain/dizziness Time Seen by Provider: 11/04/22 14:11 Source: patient Mode of arrival: wheelchair Limitations: no limitations - History of Present Illness Initial comments: Dictation was produced using [email or web address] dictation software. please excuse any grammatical, word or spelling errors. Chief Complaint: 52-year-old male presents emergency department for fever cough diarrhea and abdominal pain History of Present Illness: She is a 52-year-old male he has past medical history diabetes, dyslipidemia hypertension. Patient presents emergency department for cough, constitutional symptoms, back pain, fever or joint pains abdominal pain. He has had some nonbilious nonbloody emesis. He is having a nonproductive cough with runny nose. Denies any sore throat. Denies any vomiting. He states that his whole abdomen hurts mostly on the bilateral flanks and right upper quadrant. No obvious sick contacts The ROS documented in this emergency department record has been reviewed and confirmed by me. Those systems with pertinent positive or negative responses have been documented in the HPI. All other systems are other negative and/or noncontributory. - Related Data Home Medications Medication Instructions Recorded Confirmed Albuterol Inhaler [Ventolin Hfa 1 puff INHALATION RT-Q4H PRN 11/04/22 11/04/22 Inhaler] Atorvastatin [Lipitor] 20 mg PO DAILY 11/04/22 11/04/22 Evolocumab [Repatha Sureclick] 140 mg SQ Q14D 11/04/22 11/04/22 lisinopriL 40 mg PO DAILY 11/04/22 11/04/22 Previous Rx's Medication Instructions Recorded metFORMIN HCL [Glucophage] 500 mg PO BID #60 tab 03/07/21 Acetaminophen Tab [Tylenol] 650 mg PO Q6HR PRN tab 11/08/22 Albuterol Nebulized [Ventolin 2.5 mg INHALATION RT-Q4H PRN #60 11/08/22 Nebulized] each Famotidine [Pepcid] 20 mg PO DAILY #10 tab 11/08/22 Nystatin 100,000 Unit/ml Susp 500,000 unit PO QID 5 Days #100 ml 11/08/22 [Mycostatin Oral Susp] cefUROXime axetiL [Ceftin] 500 mg PO BID 7 Days #14 tab 11/08/22 Allergies Allergy/AdvReac Type Severity Reaction Status Date / Time diclofenac sodium Allergy Anaphylaxis Verified 11/04/22 16:23 [From Arthrotec] misoprostol [From Arthrotec] Allergy Anaphylaxis Verified 11/04/22 16:23 Review of Systems ROS Statement: Those systems with pertinent positive or pertinent negative responses have been documented in the HPI. ROS Other: All systems not noted in ROS Statement are negative. Past Medical History Past Medical History: Asthma, Chest Pain / Angina, Diabetes Mellitus, GERD/Reflux, Hyperlipidemia, Hypertension, Myocardial Infarction (MT), Osteoarthritis (OA) Additional Past Medical History / Comment(s): ARTHRITIS multiple joints, CHRONIC PAIN, pinched nerves lumbar region, migraines. Last Myocardial Infarction Date:: 07/2016 History of Any Multi-Drug Resistant Organisms: None Reported Past Surgical History: Heart Catheterization With Stent, Orthopedic Surgery Additional Past Surgical History / Comment(s): 2016 heart cath w/stent, 10/10/14 PTCA with stent to proximal LAD, LEFT KNEE ARTHROSCOPY, R wrist CARPAL TUNNEL, LEFT and right HAND TRIGGER FINGER RELEASE, pain clinic procedures-lumbar/sacral areas. Past Anesthesia/Blood Transfusion Reactions: Postoperative Nausea & Vomiting (PONV) Additional Past Anesthesia/Blood Transfusion Reaction / Comment(s): never recieved blood Date of Last Stent Placement:: 2014 Past Psychological History: Anxiety, Depression Smoking Status: Current every day smoker Past Alcohol Use History: None Reported Past Drug Use History: Marijuana - Past Family History Father Family Medical History: Congestive Heart Failure (CHF), Coronary Artery Disease (CAD) Additional Family Medical History / Comment(s): Father at the age of 63 yrs from cardiac aneurysm. Mother Family Medical History: Diabetes Mellitus, Hypertension, Osteoarthritis (OA) Additional Family Medical History / Comment(s): Back problems General Exam - General Exam Comments Initial Comments: PHYSICAL EXAM: General Impression: Alert and oriented x3, not in acute distress HEENT: Normocephalic atraumatic, extra-ocular movements intact, pupils equal and reactive to light bilaterally, mucous membranes moist. Cardiovascular: Heart regular rate and rhythm Chest: Able to complete full sentences, no retractions, no tachypnea, clear to auscultation bilaterally Abdomen: abdomen soft, positive right upper quadrant tenderness, negative Dubon sign, palpatory pain to the bilateral flanks, non-distended, no organomegaly Musculoskeletal: Pulses present and equal in all extremities, no peripheral edema Motor: no focal deficits noted Neurological: CN II-XII grossly intact, no focal motor or sensory deficits noted Skin: Intact with no visualized rashes Psych: Normal affect and mood Limitations: no limitations Course Vital Signs 11/04/22 11/04/22 11/04/22 14:06 15:24 15:38 Temperature 103.0 F H 98.6 F Pulse Rate 132 H 130 H 117 H Respiratory 22 18 18 Rate Blood Pressure 156/86 97/85 114/69 O2 Sat by Pulse 96 95 96 Oximetry 11/04/22 17:09 Temperature Pulse Rate 85 Respiratory 18 Rate Blood Pressure 105/64 O2 Sat by Pulse 95 Oximetry EKG Findings - EKG Comments: EKG Findings:: My EKG interpretation: Ventricular rate 132, sinus tachycardia, NC interval 37, QRS 87, QTC 360. No NC prolongation, no QTC prolongation, no ST or T-wave changes noted. . Overall, this EKG is unremarkable Procedures - Sepsis Sepsis Focused Exam #1 Time Sepsis Criteria Met: 16:13 Sepsis Focused Exam Complete: No Vital Signs & RN Notes Reviewed: No Capillary Refill: < 2 Seconds: Fingers, Toes Peripheral Pulses: Normal: Radial (R), Radial (L), Posterior Tibialis (R), Posterior Tibialis (L), Dorsalis Pedis (R), Dorsalis Pedis (L) Skin Color: Normal for Patient Respiratory Exam: normal lung sounds Cardiovascular Exam: regular rate Medical Decision Making - Medical Decision Making Was pt. sent in by a medical professional or institution (, PA, STATISTICAL TECHNICIAN, urgent care, hospital, or senior living...) When possible be specific @ -No Did you speak to anyone other than the patient for history (EMS, parent, family, police, friend...)? What history was obtained from this source @ -No Did you review nursing and triage notes (agree or disagree)? Why? @ -I reviewed and agree with nursing and triage notes Were old charts reviewed (outside hosp., previous admission, EMS record, old EKG, old radiological studies, urgent care reports/EKG's, senior living records)? Report findings @ -No old charts were reviewed Differential Diagnosis (chest pain, altered mental status, abdominal pain women, abdominal pain men, vaginal bleeding, musculoskeletal, weakness, fever, dyspnea, syncope, headache, dizziness, GI bleed, back pain, seizure, CVA, palpatations, mental health)? @ -Differential Fever: Pneumonia, viral URI, endocarditis, myocarditis, pericarditis, otitis, sinusitis, peritonsillar Abscess, retropharyngeal Abscess, epiglottitis, peritonitis, appendicitis, Leila cystitis, diverticulitis, hepatitis, colitis, UTI, PID, TOA, pyelonephritis, prostatitis, epididymitis, meningitis, encephalitis, pulmonary embolism, CVA, thyroid storm, pancreatitis, adrenal crisis, cavernous sinus thrombosis, this is not meant to be an all-inclusive list. EKG interpreted by me (3pts min.). @ -See above X-rays interpreted by me (1pt min.). @ -Chest x-ray is unremarkable CT interpreted by me (1pt min.). @ -None done U/S interpreted by me (1pt. min.). @ -None done What testing was considered but not performed or refused? (CT, X-rays, U/S, labs)? Why? @ -None What meds were considered but not given or refused? Why? @ -None Did you discuss the management of the patient with other professionals (professionals i.e. , PA, STATISTICAL TECHNICIAN, lab, RT, psych nurse, mental health social worker, color corrector, teacher, chief analytics officer, case operator)? Give summary @ -No Was smoking cessation discussed for >3mins.? @ -No Was critical care preformed (if so, how long)? @ -No Were there social determinants of health that impacted care today? How? (Homelessness, low income, unemployed, alcoholism, drug addiction, transportation, low edu. Level, literacy, decrease access to med. care, fdc, rehab)? @ -No Was there de-escalation of care discussed even if they declined (Discuss DNR or withdrawal of care, Hospice)? DNR status @ -No What co-morbidities impacted this encounter? (DM, HTN, Smoking, COPD, CAD, Cancer, CVA, ARF, Chemo, Hep., AIDS, mental health diagnosis, sleep apnea, morbid obesity)? @ -Chronic tobacco abuse, asthma dyslipidemia Was patient admitted / discharged? Hospital course, mention meds given and route, prescriptions, significant lab abnormalities, going to OR and other pertinent info. @ -52 Year-old male presents emergency department for constitutional symptoms. Patient does not have any obvious localizing symptoms. He does have features of fever including joint pain, muscle aches, diarrhea. Laboratory evaluation shows sodium of 127, white count of 17.2. Physical presentation consistent with SIRS. There is no obvious source of bacterial infection. Reevaluated at bedside at 4:00 PM on be stable medical condition. Pending blood cultures. Patient will be admitted for medical monitoring and infectious disease consult. Patient was given Zosyn. Undiagnosed new problem with uncertain prognosis? @ -No Drug Therapy requiring intensive monitoring for toxicity (Heparin, Nitro, Insulin, Cardizem)? @ -No Were any procedures done? @ -No Diagnosis/symptom? Acute, or Chronic, or Acute on Chronic? Uncomplicated (without systemic symptoms) or Complicated (systemic symptoms)? @ -1. SIRS Side effects of treatment? @ -No Exacerbation, Progression, or Severe Exacerbation? @ -No Poses a threat to life or bodily function? How? (Chest pain, USA, MT, pneumonia, PE, COPD, DKA, ARF, appy, cholecystitis, CVA, Diverticulitis, Homicidal, Suicidal, threat to staff... and all critical care pts) @ -yes - Lab Data Result diagrams: 11/07/22 05:58 11/08/22 06:43 Lab Results 11/04/22 11/04/22 11/04/22 Range/Units 15:16 15:16 15:16 WBC 17.2 H (3.8-10.6) k/uL RBC 5.17 (4.30-5.90) m/uL Hgb 16.3 (13.0-17.5) gm/dL Hct 46.1 (39.0-53.0) % MCV 89.3 (80.0-100.0) fL MCH 31.5 (25.0-35.0) pg MCHC 35.3 (31.0-37.0) g/dL RDW 12.5 (11.5-15.5) % Plt Count 239 (150-450) k/uL MPV 7.4 Neutrophils % 86 % Lymphocytes % 7 % Monocytes % 4 % Eosinophils % 1 % Basophils % 0 % Neutrophils # 14.8 H (1.3-7.7) k/uL Lymphocytes # 1.3 (1.0-4.8) k/uL Monocytes # 0.7 (0-1.0) k/uL Eosinophils # 0.1 (0-0.7) k/uL Basophils # 0.1 (0-0.2) k/uL PT 10.6 (9.0-12.0) sec INR 1.0 (<1.2) APTT 26.2 (22.0-30.0) sec Sodium 127 L (137-145) mmol/L Potassium 4.7 (3.5-5.1) mmol/L Chloride 95 L (98-107) mmol/L Carbon Dioxide 17 L (22-30) mmol/L Anion Gap 15 mmol/L BUN 14 (9-20) mg/dL Creatinine 0.95 (0.66-1.25) mg/dL Est GFR (CKD-EPI)AfAm >90 (>60 ml/min/1.73 sqM) Est GFR (CKD-EPI)NonAf >90 (>60 ml/min/1.73 sqM) Glucose 196 H (74-99) mg/dL Plasma Lactic Acid Jeremy (0.7-2.0) mmol/L Calcium 9.5 (8.4-10.2) mg/dL Magnesium 1.5 L (1.6-2.3) mg/dL Total Bilirubin 1.4 H (0.2-1.3) mg/dL AST 23 (17-59) U/L ALT 22 (4-49) U/L Alkaline Phosphatase 84 (38-126) U/L Total Protein 7.6 (6.3-8.2) g/dL Albumin 4.2 (3.5-5.0) g/dL Procalcitonin (0.02-0.09) ng/mL Influenza Type A (PCR) (Not Detectd) Influenza Type B (PCR) (Not Detectd) RSV (PCR) (Not Detectd) SARS-CoV-2 (PCR) (Not Detectd) 11/04/22 11/04/22 11/04/22 Range/Units 15:16 15:16 15:23 WBC (3.8-10.6) k/uL RBC (4.30-5.90) m/uL Hgb (13.0-17.5) gm/dL Hct (39.0-53.0) % MCV (80.0-100.0) fL MCH (25.0-35.0) pg MCHC (31.0-37.0) g/dL RDW (11.5-15.5) % Plt Count (150-450) k/uL MPV Neutrophils % % Lymphocytes % % Monocytes % % Eosinophils % % Basophils % % Neutrophils # (1.3-7.7) k/uL Lymphocytes # (1.0-4.8) k/uL Monocytes # (0-1.0) k/uL Eosinophils # (0-0.7) k/uL Basophils # (0-0.2) k/uL PT (9.0-12.0) sec INR (<1.2) APTT (22.0-30.0) sec Sodium (137-145) mmol/L Potassium (3.5-5.1) mmol/L Chloride (98-107) mmol/L Carbon Dioxide (22-30) mmol/L Anion Gap mmol/L BUN (9-20) mg/dL Creatinine (0.66-1.25) mg/dL Est GFR (CKD-EPI)AfAm (>60 ml/min/1.73 sqM) Est GFR (CKD-EPI)NonAf (>60 ml/min/1.73 sqM) Glucose (74-99) mg/dL Plasma Lactic Acid Jeremy 1.2 (0.7-2.0) mmol/L Calcium (8.4-10.2) mg/dL Magnesium (1.6-2.3) mg/dL Total Bilirubin (0.2-1.3) mg/dL AST (17-59) U/L ALT (4-49) U/L Alkaline Phosphatase (38-126) U/L Total Protein (6.3-8.2) g/dL Albumin (3.5-5.0) g/dL Procalcitonin 0.26 H (0.02-0.09) ng/mL Influenza Type A (PCR) Not Detected (Not Detectd) Influenza Type B (PCR) Not Detected (Not Detectd) RSV (PCR) Not Detected (Not Detectd) SARS-CoV-2 (PCR) Not Detected (Not Detectd) Disposition Clinical Impression: SIRS (systemic inflammatory response syndrome) Disposition: ADMITTED IP TO THIS HOSP
--- NOTE | 2022-11-04 15:29 | XR ---
EXAMINATION TYPE: XR chest 2V DATE OF EXAM: 11/04/2022 3:23 PM COMPARISON: Chest x-ray 03/05/2021, chest x-ray 08/10/2021 TECHNIQUE: XR chest 2V . CLINICAL INDICATION:Male, 52 years old with history of cough; FINDINGS: Lungs/Pleura: There is no evidence of pleural effusion, focal consolidation, or pneumothorax. Pulmonary vascularity: Unremarkable. Heart/mediastinum: Cardiomediastinal silhouette is unremarkable. Musculoskeletal: No acute osseous pathology. IMPRESSION: No acute cardiopulmonary disease/process.
[2022-11-04 15:32] LABS: Basophils # (A) 0.1 k/uL (0-0.2); Basophils % (A) 0 %; Eosinophils # (A) 0.1 k/uL (0-0.7); Eosinophils % (A) 1 %; HCT 46.1 % (39.0-53.0); HGB 16.3 gm/dL (13.0-17.5); Lymphocytes # (A) 1.3 k/uL (1.0-4.8); Lymphocytes % (A) 7 %; MCH 31.5 pg (25.0-35.0); MCHC 35.3 g/dL (31.0-37.0); MCV 89.3 fL (80.0-100.0); Mean Platelet Volume 7.4; Monocytes # (A) 0.7 k/uL (0-1.0); Monocytes % (A) 4 %; Neutrophils # (A) 14.8 k/uL (1.3-7.7); Neutrophils % (A) 86 %; Platelet Count 239 k/uL (150-450); RBC 5.17 m/uL (4.30-5.90); RDW 12.5 % (11.5-15.5); WBC 17.2 k/uL (3.8-10.6)
[2022-11-04 15:41] LABS: Partial Thromboplastin Time 26.2 sec (22.0-30.0); Prothrombin Time 10.6 sec (9.0-12.0)
[2022-11-04 15:42] LABS: ALT 22 U/L (4-49); AST 23 U/L (17-59); African American GFR (CKD) >90 (>60 ml/min/1.73 sqM); Albumin 4.2 g/dL (3.5-5.0); Alkaline Phosphatase 84 U/L (38-126); Anion Gap 15 mmol/L; Blood Urea Nitrogen 14 mg/dL (9-20); Calcium 9.5 mg/dL (8.4-10.2); Carbon Dioxide 17 mmol/L (22-30); Chloride 95 mmol/L (98-107); Glucose 196 mg/dL (74-99); Magnesium 1.5 mg/dL (1.6-2.3); Non-African American GFR(CKD) >90 (>60 ml/min/1.73 sqM); Potassium 4.7 mmol/L (3.5-5.1); Sodium 127 mmol/L (137-145); Total Bilirubin 1.4 mg/dL (0.2-1.3); Total Protein 7.6 g/dL (6.3-8.2)
[2022-11-04] MEDS ORDERED: PIPERACILLIN-TAZOBACTAM 3.375 GM in SODIUM CHLORIDE 0.9% 100 ML IVPB STA (15:44)
[2022-11-04] MEDS ORDERED: ONDANSETRON 4 MG/2 ML VIAL IVP PRN (15:58)
[2022-11-04] MEDS ORDERED: NALOXONE 0.4 MG/ML 1 ML VIAL IV PRN (15:58)
[2022-11-04] MEDS: SODIUM CHLORIDE 0.9% 1,000 ML IV SCH (16:03)
[2022-11-04 17:31] LABS: Glucose,Whole Blood 201 mg/dL (70-110)
--- NOTE | 2022-11-04 20:10 | P.HPIM ---
History of Present Illness H&P Date: 11/04/22 Chief Complaint: Abdominal pain/fever 52-year-old male he has past medical history diabetes, dyslipidemia hypertension. Patient presents emergency department for cough, constitutional symptoms, back pain, fever or joint pains abdominal pain. He has had some nonbilious nonbloody emesis. He is having a nonproductive cough with runny nose. Denies any sore throat. Denies any vomiting. He states that his whole abdomen hurts mostly on the bilateral flanks and right upper quadrant. No obvious sick contacts EKG Findings: Ventricular rate 132, sinus tachycardia, UT interval 37, QRS 87, QTC 360. No UT prolongation, no QTC prolongation, no ST or T-wave changes noted. . Overall, this EKG is unremarkable He does have features of fever including joint pain, muscle aches, diarrhea. Laboratory evaluation shows sodium of 127, white count of 17.2. Physical presentation consistent with SIRS. There is no obvious source of bacterial infection. Patient will be admitted for medical monitoring and infectious disease consult. Patient was given Zosyn. Review of Systems REVIEW OF SYSTEMS: CONSTITUTIONAL: No fever, no malaise, no fatigue. HEENT: No recent visual problems or hearing problems. Denied any sore throat. CARDIOVASCULAR: No chest pain, orthopnea, PND, no palpitations, no syncope. PULMONARY: No shortness of breath, no cough, no hemoptysis. GASTROINTESTINAL: No diarrhea, no nausea, no vomiting, no abdominal pain. NEUROLOGICAL: No headaches, no weakness, no numbness. HEMATOLOGICAL: Denies any bleeding or petechiae. GENITOURINARY: Denies any burning micturition, frequency, or urgency. MUSCULOSKELETAL/RHEUMATOLOGICAL: Denies any joint pain, swelling, or any muscle pain. ENDOCRINE: Denies any polyuria or polydipsia. The rest of the 14-point review of systems is negative. Past Medical History Past Medical History: Asthma, Chest Pain / Angina, Diabetes Mellitus, GERD/Reflux, Hyperlipidemia, Hypertension, Myocardial Infarction (UT), Ost eoarthritis (OA) Additional Past Medical History / Comment(s): ARTHRITIS multiple joints, CHRONIC PAIN, pinched nerves lumbar region, migraines. Last Myocardial Infarction Date:: 07/2016 History of Any Multi-Drug Resistant Organisms: None Reported Past Surgical History: Heart Catheterization With Stent, Orthopedic Surgery Additional Past Surgical History / Comment(s): 2016 heart cath w/stent, 10/10/14 PTCA with stent to proximal LAD, LEFT KNEE ARTHROSCOPY, R wrist CARPAL TUNNEL, LEFT and right HAND TRIGGER FINGER RELEASE, pain clinic procedures-lumbar/sacral areas. Past Anesthesia/Blood Transfusion Reactions: Postoperative Nausea & Vomiting (PONV) Additional Past Anesthesia/Blood Transfusion Reaction / Comment(s): never recieved blood Date of Last Stent Placement:: 2014 Past Psychological History: Anxiety, Depression Additional Psychological History / Comment(s): Pt is . He has limitations with his activites r/t pain problems. pt does'nt drive, his mom takes him to [employer]. bp machine, glucometer Smoking Status: Current every day smoker Past Alcohol Use History: None Reported Additional Past Alcohol Use History / Comment(s): started smoking 1977- down to 06/11- declined smoking cessation booklet. Past Drug Use History: Marijuana Additional Drug Use History / Comment(s): Pt states he smokes marijuana for pain control. - Past Family History Father Family Medical History: Congestive Heart Failure (CHF), Coronary Artery Disease (CAD) Additional Family Medical History / Comment(s): Father at the age of 63 yrs from cardiac aneurysm. Mother Family Medical History: Diabetes Mellitus, Hypertension, Osteoarthritis (OA) Additional Family Medical History / Comment(s): Back problems Medications and Allergies Home Medications Medication Instructions Recorded Confirmed Type metFORMIN HCL [Glucophage] 500 mg PO BID #60 tab 03/07/21 11/04/22 Rx Albuterol Inhaler [Ventolin Hfa 1 puff INHALATION RT-Q4H PRN 11/04/22 11/04/22 History Inhaler] Atorvastatin [Lipitor] 20 mg PO DAILY 11/04/22 11/04/22 History Evolocumab [Repatha Sureclick] 140 mg SQ Q14D 11/04/22 11/04/22 History lisinopriL 40 mg PO DAILY 11/04/22 11/04/22 History Allergies Allergy/AdvReac Type Severity Reaction Status Date / Time diclofenac sodium Allergy Anaphylaxis Verified 11/04/22 16:23 [From Arthrotec] misoprostol [From Arthrotec] Allergy Anaphylaxis Verified 11/04/22 16:23 Physical Exam Vitals: Vital Signs Temp Pulse Pulse Resp BP BP Pulse Ox 11/04/22 17:49 105/66 11/04/22 17:30 98.0 F 94 18 97 11/04/22 17:09 85 18 105/64 95 11/04/22 15:38 117 H 18 114/69 96 11/04/22 15:24 98.6 F 130 H 18 97/85 95 11/04/22 14:06 103.0 F H 132 H 22 156/86 96 Intake and Output 11/04/22 11/04/22 11/04/22 06:59 14:59 22:59 Intake Total 130 Balance 130 Intake: Intake, IV Titration 130 Amount Sodium Chloride 0.9% 1, 130 000 ml @ 130 mls/hr IV . [id number] [facility] Rx#:[id number] Other: Weight 113.398 kg 113.398 kg General Impression: Alert and oriented x3, not in acute distress HEENT: Normocephalic atraumatic, extra-ocular movements intact, pupils equal and reactive to light bilaterally, mucous membranes moist. Cardiovascular: Heart regular rate and rhythm Chest: Able to complete full sentences, no retractions, no tachypnea, clear to auscultation bilaterally Abdomen: abdomen soft, positive right upper quadrant tenderness, negative Dubon sign, palpatory pain to the bilateral flanks, non-distended, no organomegaly Musculoskeletal: Pulses present and equal in all extremities, no peripheral edema Motor: no focal deficits noted Neurological: CN II-XII grossly intact, no focal motor or sensory deficits noted Skin: Intact with no visualized rashes Psych: Normal affect and mood Results CBC & Chem 7: 11/04/22 15:16 11/04/22 15:16 Labs: Abnormal Lab Results - Last 24 Hours (Table) 11/04/22 11/04/22 11/04/22 Range/Units 15:16 15:16 17:30 WBC 17.2 H (3.8-10.6) k/uL Neutrophils # 14.8 H (1.3-7.7) k/uL Sodium 127 L (137-145) mmol/L Chloride 95 L (98-107) mmol/L Carbon Dioxide 17 L (22-30) mmol/L Glucose 196 H (74-99) mg/dL POC Glucose (mg/dL) 201 H (70-110) mg/dL Magnesium 1.5 L (1.6-2.3) mg/dL Total Bilirubin 1.4 H (0.2-1.3) mg/dL Thrombosis Risk Factor Assmnt - Choose All That Apply Each Factor Represents 1 point: Age 41-60 years, Obesity (BMI >25) Thrombosis Risk Factor Assessment Total Risk Factor Score: 2 Thrombosis Risk Factor Assessment Level: Low Risk Assessment and Plan Assessment: 1. Fever/leukocytosis; SIRS/ sepsis - Patient has been pancultured; influenza ANP, RSV and COVID-19 PCR is obtained; lactic acid level is within normal limits - Patient is placed on IV Zosyn 3.375 g IV every 8 hours - We will closely monitor CBC, CRP and pro-calcitonin - ID is consulted and recommendations are appreciated 2. Hyponatremia; likely dehydration - We will start patient on IV fluids in form of normal saline at a rate of 75 mL an hour; monitor electrolytes closely 3. Hyperglycemia/uncontrolled diabetes mellitus; not in acidosis - Patient is currently on metformin 500 mg twice a day; we will monitor Accu- Cheks before meals and at bedtime with insulin sliding scale 4. Hypertension; lisinopril 40 mg daily 5. Hyperlipidemia; Lipitor 20 mg by mouth daily at bedtime 6. Asthma; not in exacerbation; albuterol inhaler 2 puffs 4 times a day when necessary 7. Osteoarthritis DVT prophylaxis; SCDs CODE STATUS; full code
[2022-11-04] MEDS: metFORMIN 500 MG TAB PO SCH (20:36)
[2022-11-04 20:43] LABS: Glucose,Whole Blood 170 mg/dL (70-110)
[2022-11-04] MEDS: PIPERACILLIN-TAZOBACTAM 3.375 GM in SODIUM CHLORIDE 0.9% 100 ML IVPB SCH (23:49)
[2022-11-05] MEDS: SODIUM CHLORIDE 0.9% 1,000 ML IV SCH ×3 (01:37→16:48)
[2022-11-05] MEDS: ACETAMINOPHEN TAB 325 MG TAB PO PRN ×2 (01:41→14:01)
[2022-11-05] MEDS: metFORMIN 500 MG TAB PO SCH ×2 (06:21→16:51)
[2022-11-05 06:29] LABS: Glucose,Whole Blood 162 mg/dL (70-110)
[2022-11-05] MEDS: lisinopriL 20 MG TAB PO SCH (08:36)
[2022-11-05] MEDS: ATORVASTATIN 20 MG TAB PO SCH (08:36)
[2022-11-05] MEDS: PIPERACILLIN-TAZOBACTAM 3.375 GM in SODIUM CHLORIDE 0.9% 100 ML IVPB SCH ×2 (08:37→16:48)
[2022-11-05 09:13] LABS: Basophils # (A) 0.07 X 10*3/uL (0.00-0.10); Basophils % (A) 0.5 %; Eosinophils # (A) 0 X 10*3/uL (0.04-0.35); Eosinophils % (A) 0 %; HCT 46.4 % (39.6-50.0); HGB 15.5 g/dL (13.0-17.0); Immature Grans, Automated 0.9 %; Lymphocytes # (A) 1.48 X 10*3/uL (0.90-5.00); Lymphocytes % (A) 9.5 %; MCH 30.5 pg (27.0-32.0); MCHC 33.4 g/dL (32.0-37.0); MCV 91.2 fL (80.0-97.0); Mean Platelet Volume 10.2 fL (9.5-12.2); Monocytes # (A) 0.88 X 10*3/uL (0.20-1.00); Monocytes % (A) 5.7 %; NRBC Per 100 WBC 0 /100 WBCS (0.0-0.0); Neutrophils # (A) 12.96 X 10*3/uL (1.80-7.70); Neutrophils % (A) 83.4 %; Platelet Count 239 X 10*3/uL (140-440); RBC 5.09 X 10*6/uL (4.40-5.60); RDW 12.6 % (11.5-14.5); WBC 15.53 X 10*3/uL (4.50-10.00)
[2022-11-05] MEDS: MAGNESIUM SULFATE-D5W PMX 1 GM in DEXTROSE/WATER 1 100ML.BAG IVPB SCH ×2 (10:17→11:14)
[2022-11-05 11:15] LABS: Glucose,Whole Blood 165 mg/dL (70-110)
[2022-11-05 11:46] LABS: African American GFR (CKD) 99.8 (60.0-200.0); Anion Gap 14.2 mmol/L (10.00-18.00); Calcium 8.8 mg/dL (8.7-10.3); Carbon Dioxide 19.8 mmol/L (20.0-27.5); Non-African American GFR(CKD) 86.2 (60.0-200.0); Potassium 4.5 mmol/L (3.5-5.5)
[2022-11-05] MEDS ORDERED: IOPAMIDOL CONTRAST (ORAL USE) VIAL PO PRN (13:29)
[2022-11-05] MEDS: IOPAMIDOL CONTRAST (ORAL USE) VIAL PO PRN ×2 (14:01→14:59)
--- NOTE | 2022-11-05 15:41 | P.PN ---
Subjective Progress Note Date: 11/05/22 Principal diagnosis: Fever/leukocytosis; SIRS/ sepsis Hyponatremia; likely dehydration Hyperglycemia/uncontrolled diabetes mellitus 52-year-old male he has past medical history diabetes, dyslipidemia hypertension. Patient presents emergency department for cough, constitutional symptoms, back pain, fever or joint pains abdominal pain. He has had some nonbilious nonbloody emesis. He is having a nonproductive cough with runny nose. Denies any sore throat. Denies any vomiting. He states that his whole abdomen hurts mostly on the bilateral flanks and right upper quadrant. No obvious sick contacts EKG Findings: Ventricular rate 132, sinus tachycardia, DE interval 37, QRS 87, QTC 360. No DE prolongation, no QTC prolongation, no ST or T-wave changes noted. . Overall, this EKG is unremarkable He does have features of fever including joint pain, muscle aches, diarrhea. Laboratory evaluation shows sodium of 127, white count of 17.2. Physical presentation consistent with SIRS. There is no obvious source of bacterial infection. Patient will be admitted for medical monitoring and infectious disease consult. Patient was given Zosyn. Patient remains on IV Zosyn; WBC is improved at 15.5 from 17.2 yesterday; calcitonin trended up from 0.26 yesterday to 0.43; sodium at 129 which is stable from 127 yesterday -- Await evaluation and recommendations by ID Objective - Vital Signs Vital signs: Vital Signs Temp 100.1 F H 11/05/22 08:41 Pulse 117 H 11/05/22 07:15 Resp 20 11/05/22 07:15 BP 133/68 11/05/22 07:15 Pulse Ox 97 11/05/22 07:15 FiO2 Intake & Output 11/04/22 11/05/22 11/05/22 18:59 06:59 18:59 Intake Total 130 2100 Balance 130 2100 Weight 113.398 kg Intake: Intake, IV Titration 130 1140 Amount Piperacillin-Tazobactam 3 100 .375 gm In Sodium Chloride 0.9% 100 ml @ 25 mls/hr IVPB Q8HR [facility] Rx# :[id number] Sodium Chloride 0.9% 1, 130 1040 000 ml @ 130 mls/hr IV . Q7H42M [facility] Rx#:[id number] Oral 960 Other: # Voids 2 # Bowel Movements 1 - Exam General Impression: Alert and oriented x3, not in acute distress HEENT: Normocephalic atraumatic, extra-ocular movements intact, pupils equal and reactive to light bilaterally, mucous membranes moist. Cardiovascular: Heart regular rate and rhythm Chest: Able to complete full sentences, no retractions, no tachypnea, clear to auscultation bilaterally Abdomen: abdomen soft, positive right upper quadrant tenderness, negative Dubon sign, palpatory pain to the bilateral flanks, non-distended, no organomegaly Musculoskeletal: Pulses present and equal in all extremities, no peripheral edema Motor: no focal deficits noted Neurological: CN II-XII grossly intact, no focal motor or sensory deficits noted Skin: Intact with no visualized rashes Psych: Normal affect and mood - Labs CBC & Chem 7: 11/05/22 05:43 11/05/22:43 Labs: Abnormal Lab Results - Last 24 Hours (Table) 11/04/22 11/04/22 11/04/22 Range/Units 15:16 15:16 15:16 WBC 17.2 H (3.8-10.6) k/uL Immature Gran # (0.00-0.04) X 10*3/uL Neutrophils # 14.8 H (1.3-7.7) k/uL Eosinophils # (0.04-0.35) X 10*3/uL Sodium 127 L (137-145) mmol/L Chloride 95 L (98-107) mmol/L Carbon Dioxide 17 L (22-30) mmol/L Glucose 196 H (74-99) mg/dL POC Glucose (mg/dL) (70-110) mg/dL Magnesium 1.5 L (1.6-2.3) mg/dL Total Bilirubin 1.4 H (0.2-1.3) mg/dL Procalcitonin 0.26 H (0.02-0.09) ng/mL 11/04/22 11/04/22 11/05/22 Range/Units 17:30 20:41 05:43 WBC 15.53 H (3.8-10.6) k/uL Immature Gran # 0.14 H (0.00-0.04) X 10*3/uL Neutrophils # 12.96 H (1.3-7.7) k/uL Eosinophils # 0 L (0.04-0.35) X 10*3/uL Sodium (137-145) mmol/L Chloride (98-107) mmol/L Carbon Dioxide (22-30) mmol/L Glucose (74-99) mg/dL POC Glucose (mg/dL) 201 H 170 H (70-110) mg/dL Magnesium (1.6-2.3) mg/dL Total Bilirubin (0.2-1.3) mg/dL Procalcitonin (0.02-0.09) ng/mL 11/05/22 Range/Units 06:27 WBC (3.8-10.6) k/uL Immature Gran # (0.00-0.04) X 10*3/uL Neutrophils # (1.3-7.7) k/uL Eosinophils # (0.04-0.35) X 10*3/uL Sodium (137-145) mmol/L Chloride (98-107) mmol/L Carbon Dioxide (22-30) mmol/L Glucose (74-99) mg/dL POC Glucose (mg/dL) 162 H (70-110) mg/dL Magnesium (1.6-2.3) mg/dL Total Bilirubin (0.2-1.3) mg/dL Procalcitonin (0.02-0.09) ng/mL
[2022-11-05 16:36] LABS: Glucose,Whole Blood 163 mg/dL (70-110)
--- NOTE | 2022-11-05 16:42 | CT ---
EXAMINATION TYPE: CT abdomen pelvis wo con CT DLP: 1294.4 mGycm, Automated exposure control for dose reduction was used. DATE OF EXAM: 11/05/2022 4:11 PM COMPARISON: None CLINICAL INDICATION:Male, 52 years old with history of abd pain and vomiting; Abdominal pain. Vomitin g. TECHNIQUE: Axial CT of the abdomen and pelvis. Sagittal and coronal reformats were created on a [employer] workstation. Contrast used: None Oral contrast used: with Oral Contrast FINDINGS: LOWER CHEST: Streaky atelectasis felt to be within the lingula. ABDOMEN LIVER: Diffusely hypoattenuating parenchyma. GALLBLADDER AND BILE DUCTS: Unremarkable. PANCREAS: Unremarkable. SPLEEN: Unremarkable. ADRENAL GLANDS: Unremarkable. KIDNEYS AND URETERS: No evidence of hydronephrosis or renal calculus. The ureters are unremarkable. PELVIS BLADDER: Unremarkable REPRODUCTIVE: Unremarkable. ABDOMEN & PELVIS STOMACH AND BOWEL: No evidence of bowel obstruction. The appendix is normal PERITONEUM/RETROPERITONEUM: No evidence of pneumoperitoneum or free fluid. VASCULATURE: No evidence of aortic aneurysm. MUSCULOSKELETAL: No acute osseous abnormalities, multilevel disc degeneration changes grade 1 anterol isthesis of L5 on S1 with bilateral spondylolysis. LYMPH NODES: No gross evidence for lymphadenopathy. SOFT TISSUE/ABDOMINAL WALL: Fat-containing bilateral inguinal hernias. Small fat-containing umbilical hernia. IMPRESSION: 1. No acute abdominal process. 2. Bilateral fat-containing inguinal and umbilical hernias. 3. Hepatic steatosis. 4. grade 1 anterolisthesis of L5 on S1 with bilateral spondylolysis.
--- NOTE | 2022-11-05 19:49 | P.CONS ---
History of Present Illness - Reason for Consult Consult date: 11/05/22 Sirs Requesting physician: Sebastian Harrison - Chief Complaint Fever and abdominal pain x one day - History of Present Illness Patient is a 52-year-old male with a past medical history significant for diabetes mellitus hypertension hyperlipidemia presenting to the ER yesterday afternoon for evaluation of fever diarrhea and abdominal pain, patient's symptom has been going on for few days before presentation to the hospital patient complaining of fever with rigors and chills generalized body aches also has been complaining of bilateral flank and lower abdominal pain describing to be more of a dull aching to sharp 6-7 out of 10 no radiation. Did have associated nausea and vomiting denies any diarrhea or constipation patient denies any URI symptoms he also have a cough and shortness of breath cough is mostly mild to moderate intensity dry in nature, with the symptoms the patient was evaluated in the ER on presentation to the hospital patient did have a fever of 103 F patient was tachycardic however not hypoxic or need for supplemental oxygen patient did have a white count of 17.2 which is down to 18.53 today with a left shift creatinine has been normal liver enzymes bilirubin is mildly elevated Pro-Chago was mildly elevated influenza RSV and COVID testing was negative patient did have a chest x-ray no acute cardiopulmonary disease process patient was admitted to the hospital has been started on Zosyn infectious disease was consulted for further management of antibiotic therapy Review of Systems Positive point and negatives has been mentioned in the HPI, complete review of systems was performed and all other systems are negative Past Medical History Past Medical History: Asthma, Chest Pain / Angina, Diabetes Mellitus, GERD/Reflux, Hyperlipidemia, Hypertension, Myocardial Infarction ([place]), Osteoarthritis (OA) Additional Past Medical History / Comment(s): ARTHRITIS multiple joints, CHRONIC PAIN, pinched nerves lumbar region, migraines. Last Myocardial Infarction Date:: 07/2016 History of Any Multi-Drug Resistant Organisms: None Reported Past Surgical History: Heart Catheterization With Stent, Orthopedic Surgery Additional Past Surgical History / Comment(s): 2016 heart cath w/stent, 10/10/14 PTCA with stent to proximal LAD, LEFT KNEE ARTHROSCOPY, R wrist CARPAL TUNNEL, LEFT and right HAND TRIGGER FINGER RELEASE, pain clinic procedures-lumbar/sacral areas. Past Anesthesia/Blood Transfusion Reactions: Postoperative Nausea & Vomiting (PONV) Additional Past Anesthesia/Blood Transfusion Reaction / Comm: never recieved blood Date of Last Stent Placement:: 2014 Past Psychological History: Anxiety, Depression Additional Psychological History / Comment(s): Pt is . He has limitations with his activites r/t pain problems. pt does'nt drive, his mom takes him to appts. bp machine, glucometer Smoking Status: Current every day smoker Past Alcohol Use History: None Reported Additional Past Alcohol Use History / Comment(s): started smoking 1977- down to 06/11- declined smoking cessation booklet. Past Drug Use History: Marijuana Additional Drug Use History / Comment(s): Pt states he smokes marijuana for pain control. - Past Family History Father Family Medical History: Congestive Heart Failure (CHF), Coronary Artery Disease (CAD) Additional Family Medical History / Comment(s): Father at the age of 63 yrs from cardiac aneurysm. Mother Family Medical History: Diabetes Mellitus, Hypertension, Osteoarthritis (OA) Additional Family Medical History / Comment(s): Back problems Medications and Allergies Home Medications Medication Instructions Recorded Confirmed Type metFORMIN HCL [Glucophage] 500 mg PO BID #60 tab 03/07/21 11/04/22 Rx Albuterol Inhaler [Ventolin Hfa 1 puff INHALATION RT-Q4H PRN 11/04/22 11/04/22 History Inhaler] Atorvastatin [Lipitor] 20 mg PO DAILY 11/04/22 11/04/22 History Evolocumab [Repatha Sureclick] 140 mg SQ Q14D 11/04/22 11/04/22 History lisinopriL 40 mg PO DAILY 11/04/22 11/04/22 History Acetaminophen Tab [Tylenol] 650 mg PO Q6HR PRN tab 11/08/22 Rx Albuterol Nebulized [Ventolin 2.5 mg INHALATION RT-Q4H PRN #60 11/08/22 Rx Nebulized] each Famotidine [Pepcid] 20 mg PO DAILY #10 tab 11/08/22 Rx Nystatin 100,000 Unit/ml Susp 500,000 unit PO QID 5 Days #100 ml 11/08/22 Rx [Mycostatin Oral Susp] cefUROXime axetiL [Ceftin] 500 mg PO BID 7 Days #14 tab 11/08/22 Rx Allergies Allergy/AdvReac Type Severity Reaction Status Date / Time diclofenac sodium Allergy Anaphylaxis Verified 11/04/22 16:23 [From Arthrotec] misoprostol [From Arthrotec] Allergy Anaphylaxis Verified 11/04/22 16:23 Physical Exam Vitals: Vital Signs Temp Pulse Pulse Resp BP BP Pulse Ox 11/05/22 08:41 100.1 F H 11/05/22 08:37 117 H 20 11/05/22 07:15 99.3 F 117 H 20 133/68 97 11/05/22 02:00 103 F H 119 H 137/68 97 11/04/22 19:10 98.3 F 106 H 20 107/58 95 11/04/22 17:49 105/66 11/04/22 17:30 98.0 F 94 18 97 11/04/22 17:09 85 18 105/64 95 11/04/22 15:38 117 H 18 114/69 96 11/04/22 15:24 98.6 F 130 H 18 97/85 95 11/04/22 14:06 103.0 F H 132 H 22 156/86 96 Intake and Output 11/04/22 11/05/22 11/05/22 22:59 06:59 14:59 Intake Total 130 2100 Balance 130 2100 Intake: Intake, IV Titration 130 1140 Amount Piperacillin-Tazobactam 3 100 .375 gm In Sodium Chloride 0.9% 100 ml @ 25 mls/hr IVPB Q8HR [facility] Rx# :[id number] Sodium Chloride 0.9% 1, 130 1040 000 ml @ 130 mls/hr IV . Q7H42M [facility] Rx#:[id number] Oral 960 Other: # Voids 2 # Bowel Movements 1 Weight 113.398 kg GENERAL DESCRIPTION: Middle-aged male lying in bed, no distress. No tachypnea or accessory muscle of respiration use. HEENT: Shows Pallor , no scleral icterus. Oral mucous membrane is dry. No pharyngeal erythema or thrush NECK: Trachea central, no thyromegaly. LUNGS: Unlabored breathing. Decreased breath sounds at the base HEART: S1, S2, regular rate and rhythm. No loud murmur ABDOMEN: Soft, mild right-sided tenderness , no guarding or rigidity EXTREMITIES: No edema of feet. SKIN: No rash, no masses palpable. NEUROLOGICAL: The patient is awake, alert, oriented x3, mood and affect normal. Results CBC & Chem 7: 11/07/22 05:58 06/01/23 06:43 Labs: Abnormal Lab Results - Last 24 Hours (Table) 11/04/22 11/04/22 11/04/22 Range/Units 15:16 15:16 15:16 WBC 17.2 H (3.8-10.6) k/uL Immature Gran # (0.00-0.04) X 10*3/uL Neutrophils # 14.8 H (1.3-7.7) k/uL Eosinophils # (0.04-0.35) X 10*3/uL Sodium 127 L (137-145) mmol/L Chloride 95 L (98-107) mmol/L Carbon Dioxide 17 L (22-30) mmol/L Glucose 196 H (74-99) mg/dL POC Glucose (mg/dL) (70-110) mg/dL Magnesium 1.5 L (1.6-2.3) mg/dL Total Bilirubin 1.4 H (0.2-1.3) mg/dL Procalcitonin 0.26 H (0.02-0.09) ng/mL 11/04/22 11/04/22 11/05/22 Range/Units 17:30 20:41 05:43 WBC 15.53 H (3.8-10.6) k/uL Immature Gran # 0.14 H (0.00-0.04) X 10*3/uL Neutrophils # 12.96 H (1.3-7.7) k/uL Eosinophils # 0 L (0.04-0.35) X 10*3/uL Sodium (137-145) mmol/L Chloride (98-107) mmol/L Carbon Dioxide (22-30) mmol/L Glucose (74-99) mg/dL POC Glucose (mg/dL) 201 H 170 H (70-110) mg/dL Magnesium (1.6-2.3) mg/dL Total Bilirubin (0.2-1.3) mg/dL Procalcitonin (0.02-0.09) ng/mL 11/05/22 11/05/22 Range/Units 06:27 11:13 WBC (3.8-10.6) k/uL Immature Gran # (0.00-0.04) X 10*3/uL Neutrophils # (1.3-7.7) k/uL Eosinophils # (0.04-0.35) X 10*3/uL Sodium (137-145) mmol/L Chloride (98-107) mmol/L Carbon Dioxide (22-30) mmol/L Glucose (74-99) mg/dL POC Glucose (mg/dL) 162 H 165 H (70-110) mg/dL Magnesium (1.6-2.3) mg/dL Total Bilirubin (0.2-1.3) mg/dL Procalcitonin (0.02-0.09) ng/mL Assessment and Plan (1) Fever Current Visit: Yes Status: Acute Code(s): R50.9 - FEVER, UNSPECIFIED SNOMED Code(s): 191514474 Plan: 1patient present to hospital with sepsis in this patient who did have fever t achycardia elevated white count patient predominantly did have GI symptoms with nausea vomiting and was noticed to have some tenderness right-sided abdominal likely abdominal source with a question of possible cholecystitis 2-we will obtain a CT of abdominal pelvis with oral contrast only as the patient is on metformin 3-continue patient on Zosyn while waiting for the cultures to be finalized and work-up to be completed We will follow on clinical condition and cultures to further adjust medication if needed Thank you for this consultation we will follow the patient along with you Time with Patient: Greater than 30
[2022-11-05 20:30] LABS: Glucose,Whole Blood 161 mg/dL (70-110)
[2022-11-06] MEDS: PIPERACILLIN-TAZOBACTAM 3.375 GM in SODIUM CHLORIDE 0.9% 100 ML IVPB SCH ×2 (00:08→08:26)
[2022-11-06] MEDS: SODIUM CHLORIDE 0.9% 1,000 ML IV SCH ×3 (00:18→16:44)
[2022-11-06] MEDS: ACETAMINOPHEN TAB 325 MG TAB PO PRN ×3 (00:19→20:48)
[2022-11-06 06:03] LABS: Glucose,Whole Blood 123 mg/dL (70-110)
[2022-11-06] MEDS: metFORMIN 500 MG TAB PO SCH ×2 (06:06→16:44)
[2022-11-06] MEDS: lisinopriL 20 MG TAB PO SCH (08:25)
[2022-11-06] MEDS: ATORVASTATIN 20 MG TAB PO SCH (08:26)
[2022-11-06 10:43] LABS: Appearance,Urine Clear (Clear); Bilirubin,Urine Negative (Negative); Blood,Urine Small (Negative); Color,Urine Yellow; Glucose,Urine (UA) 1+ (Negative); Hyaline Casts,Urine 1 /lpf (0-2); Ketones,Urine 1+ (Negative); Leukocyte Esterase,Urine Negative (Negative); Mucus,Urine Rare /hpf; Nitrite,Urine Negative (Negative); Protein,Urine 2+ (Negative); RBC,Urine 3 /hpf (0-5); Urobilinogen,Urine <2.0 mg/dL (<2.0); WBC,Urine 1 /hpf (0-5)
[2022-11-06 10:53] LABS: Basophils # (A) 0.05 X 10*3/uL (0.00-0.10); Basophils % (A) 0.4 %; Eosinophils # (A) 0 X 10*3/uL (0.04-0.35); Eosinophils % (A) 0 %; HCT 42.7 % (39.6-50.0); HGB 14.5 g/dL (13.0-17.0); Immature Grans, Automated 0.9 %; Lymphocytes # (A) 0.95 X 10*3/uL (0.90-5.00); Lymphocytes % (A) 7.3 %; MCH 30.5 pg (27.0-32.0); MCV 89.9 fL (80.0-97.0); Mean Platelet Volume 9.9 fL (9.5-12.2); Monocytes # (A) 0.82 X 10*3/uL (0.20-1.00); Monocytes % (A) 6.3 %; NRBC Per 100 WBC 0 /100 WBCS (0.0-0.0); Neutrophils # (A) 11.09 X 10*3/uL (1.80-7.70); Neutrophils % (A) 85.1 %; Platelet Count 215 X 10*3/uL (140-440); RBC 4.75 X 10*6/uL (4.40-5.60); RDW 12.7 % (11.5-14.5); WBC 13.03 X 10*3/uL (4.50-10.00)
[2022-11-06 11:05] LABS: African American GFR (CKD) 113.4 (60.0-200.0); Anion Gap 9.7 mmol/L (10.00-18.00); BUN/Creat Ratio 11.44 Ratio (12.00-20.00); Blood Urea Nitrogen 10.3 mg/dL (9.0-27.0); Calcium 8.1 mg/dL (8.7-10.3); Carbon Dioxide 21.3 mmol/L (20.0-27.5); Magnesium 2.1 mg/dL (1.5-2.4); Non-African American GFR(CKD) 97.9 (60.0-200.0); Potassium 4.8 mmol/L (3.5-5.5)
[2022-11-06 11:25] LABS: Glucose,Whole Blood 111 mg/dL (70-110)
--- NOTE | 2022-11-06 12:59 | P.PN ---
Subjective Progress Note Date: 11/06/22 Principal diagnosis: Fever Patient is a 52-year-old male with a past medical history significant for diabetes mellitus hypertension hyperlipidemia presenting to the ER for evaluation of fever diarrhea and abdominal pain, patient did have a CT of abdominal pelvis that did not show any acute abnormality, some atelectasis within the lingula. On today's evaluation that is 11/06/2022 patient remains to be febrile and did have a fever of 101F this morning patient however mention he is feeling better the patient abdominal pain has resolved no further nausea and vomiting still having some diarrhea breathing has improved occasional cough or sputum production Objective - Vital Signs Vital signs: Vital Signs Temp 101 F H 11/06/22 06:55 Pulse 113 H 11/06/22 06:55 Resp 16 11/06/22 06:55 BP 121/75 11/06/22 06:55 Pulse Ox 99 11/06/22 06:55 FiO2 Intake & Output 11/05/22 11/06/22 11/06/22 18:59 06:59 18:59 Intake Total 0 Balance 1860 Intake: Intake, IV Titration 1860 Amount Magnesium Sulfate-D5w Pmx 200 1 gm In Dextrose/Water 1 100ml.bag @ 100 mls/hr IVPB Q1H [facility] Rx#: [id number] Piperacillin-Tazobactam 3 100 .375 gm In Sodium Chloride 0.9% 100 ml @ 25 mls/hr IVPB Q8HR [facility] Rx# :[id number] Sodium Chloride 0.9% 1, 1560 000 ml @ 130 mls/hr IV . Q7H42M [facility] Rx#:[id number] Other: # Voids 2 1 - Exam GENERAL DESCRIPTION: Middle-aged male lying in bed in no distress RESPIRATORY SYSTEM: Unlabored breathing , decreased breath sounds at bases HEART: S1 S2 regular rate and rhythm , ABDOMEN: Soft , no tenderness EXTREMITIES: No edema feet - Labs CBC & Chem 7: 11/06/22 07:14 11/06/22 07:14 Labs: Abnormal Lab Results - Last 24 Hours (Table) 11/05/22 11/05/22 11/05/22 Range/Units 05:43 05:43 11:13 Sodium 129 L (135-145) mmol/L Chloride 95 L (96-109) mmol/L Carbon Dioxide 19.8 L (20.0-27.5) mmol/L BUN/Creatinine Ratio 11.00 L (12.00-20.00) Ratio Glucose 127 H (70-110) mg/dL POC Glucose (mg/dL) 165 H (70-110) mg/dL Procalcitonin 0.43 H (0.02-0.09) ng/mL Urine Protein (Negative) Urine Glucose (UA) (Negative) Urine Ketones (Negative) Urine Blood (Negative) Urine Mucus (None) /hpf 11/05/22 11/05/22 11/06/22 Range/Units 16:35 20:28 06:01 Sodium (135-145) mmol/L Chloride (96-109) mmol/L Carbon Dioxide (20.0-27.5) mmol/L BUN/Creatinine Ratio (12.00-20.00) Ratio Glucose (70-110) mg/dL POC Glucose (mg/dL) 163 H 161 H 123 H (70-110) mg/dL Procalcitonin (0.02-0.09) ng/mL Urine Protein (Negative) Urine Glucose (UA) (Negative) Urine Ketones (Negative) Urine Blood (Negative) Urine Mucus (None) /hpf 11/06/22 Range/Units 10:20 Sodium (135-145) mmol/L Chloride (96-109) mmol/L Carbon Dioxide (20.0-27.5) mmol/L BUN/Creatinine Ratio (12.00-20.00) Ratio Glucose (70-110) mg/dL POC Glucose (mg/dL) (70-110) mg/dL Procalcitonin (0.02-0.09) ng/mL Urine Protein 2+ H (Negative) Urine Glucose (UA) 1+ H (Negative) Urine Ketones 1+ H (Negative) Urine Blood Small H (Negative) Urine Mucus Rare H (None) /hpf Microbiology - Last 24 Hours (Table) 11/04/22 15:16 Blood Culture - Preliminary Blood Assessment and Plan (1) Fever Current Visit: Yes Status: Acute Code(s): R50.9 - FEVER, UNSPECIFIED SNOMED Code(s): 589262664 Plan: 1patient present to hospital with sepsis in this patient who did have fever tachycardia elevated white count patient predominantly did have GI symptoms with nausea vomiting and was noticed to have some tenderness right-sided abdominal likely abdominal source with a question of possible cholecystitis, however the patient CT abdominal pelvis did not show any acute abnormality 2-we will check urine for Legionella antigen 3-discontinue Zosyn and start the patient Rocephin and Zithromax Time with Patient: Less than 30
[2022-11-06] MEDS ORDERED: AZITHROMYCIN 500 MG in SODIUM CHLORIDE 0.9% 250 ML IVPB ONE (13:00)
[2022-11-06 16:33] LABS: Glucose,Whole Blood 145 mg/dL (70-110)
[2022-11-06] MEDS: NYSTATIN 100,000 UNIT/ML SUSP 500,000 UNIT/5 ML CUP PO SCH ×3 (16:43→21:43)
[2022-11-06] MEDS ORDERED: DEXTROSE 50% SYRINGE 50 ML IVP PRN ×2 (17:48)
--- NOTE | 2022-11-06 18:06 | P.PN ---
Subjective Progress Note Date: 11/06/22 This is a 52 year old male who is admitted for diarrhea, abdominal pain, found to have a low sodium level. Patient also with persistent fever currently T-Max of 103.1 overnight. ID is following closely patient continues on course of IV antibiotics. Urinalysis done which is not suggestive of UTI. 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 White count today is 13.03. Sodium of 129. Blood culture is currently pending. Abdominal symptoms have improved. Patient will be checked for legionella. Continue supportive care. Lisinopril will be decreased. Review of Systems Constitutional: Denied any fatigue denied any fever. Cardio vascular: denied any chest pain, palpitations Gastrointestinal: denied any nausea, vomiting, diarrhea Pulmonary: Denied any shortness of breath cough Neurologic denied any new focal deficits All inpatient medications were reviewed and appropriate changes in these medications as dictated in the interval history and assessment and plan. PHYSICAL EXAMINATION: GENERAL: The patient is alert and oriented x3, not in any acute distress. Well developed, well nourished. HEENT: Pupils are round and equally reacting to light. EOMI. No scleral icterus. No conjunctival pallor. Normocephalic, atraumatic. No pharyngeal erythema. No thyromegaly. CARDIOVASCULAR: S1 and S2 present. No murmurs, rubs, or gallops. PULMONARY: Chest is clear to auscultation, no wheezing or crackles. ABDOMEN: Soft, nontender, nondistended, normoactive bowel sounds. No palpable organomegaly. MUSCULOSKELETAL: No joint swelling or deformity. EXTREMITIES: No cyanosis, clubbing, or pedal edema. NEUROLOGICAL: Gross neurological examination did not reveal any focal deficits. SKIN: No rashes. Assessment Nausea, vomiting, diarrhea Fever and sepsis of unknown origin Sinus tachycardia Hyponatremia component of dehydration Diabetes Mellitus type 2 with hyperglycemia Oral Thrush Chronic and ongoing nicotine use History of asthma with no acute exacerbation Hypertension currently low normal History of [place] and cardiac catheterization with PCI Anxiety/Depression Gi prophylaxis DVT prophylaxis Full Code Plan Continue on IV antibiotics per infectious disease Pending blood cultures, legionella pending Continue on IV fluids, decrease BP medication Nystatin added for the oral thrush F/U labs The impression and plan of care has been dictated by Lily Cabrales, Nurse Practitioner as directed. Dr. Jaden MD I have performed a history and physical examination and medical decision making of this patient, discussed the same with the dictator, and agree with the dictators assessment and plan as written, documented as a scribe. Based on total visit time, I have performed more than 50% of this visit. The impression and plan of care has been dictated by Nurse Kane Practitioner as directed. Dr. Jaden MD I have performed a history and physical examination and medical decision making of this patient, discussed the same with the dictator, and agree with the dictators assessment and plan as written, documented as a scribe. Based on total visit time, I have performed more than 50% of this visit. Objective - Vital Signs Vital signs: Vital Signs Temp 99.7 F H 11/06/22 13:41 Pulse 110 H 11/06/22 13:41 Resp 16 11/06/22 13:41 BP 106/65 11/06/22 13:41 Pulse Ox 98 11/06/22 13:41 FiO2 Intake & Output 11/05/22 11/06/22 11/06/22 18:59 06:59 18:59 Intake Total 1860 Balance 1860 Intake: Intake, IV Titration 1860 Amount Magnesium Sulfate-D5w Pmx 200 1 gm In Dextrose/Water 1 100ml.bag @ 100 mls/hr IVPB Q1H [facility] Rx#: [id number] Piperacillin-Tazobactam 3 100 .375 gm In Sodium Chloride 0.9% 100 ml @ 25 mls/hr IVPB Q8HR [facility] Rx# :[id number] Sodium Chloride 0.9% 1, 1560 000 ml @ 130 mls/hr IV . Q7H42M [facility] Rx#:[id number] Other: # Voids 2 1 - Labs CBC & Chem 7: 11/06/22 07:14 11/06/22 07:14 Labs: Abnormal Lab Results - Last 24 Hours (Table) 11/05/22 11/05/22 11/06/22 Range/Units 16:35 20:28 06:01 WBC (4.50-10.00) X 10*3/uL Immature Gran # (0.00-0.04) X 10*3/uL Neutrophils # (1.80-7.70) X 10*3/uL Eosinophils # (0.04-0.35) X 10*3/uL Sodium (135-145) mmol/L Anion Gap (10.00-18.00) mmol/L BUN/Creatinine Ratio (12.00-20.00) Ratio Glucose (70-110) mg/dL POC Glucose (mg/dL) 163 H 161 H 123 H (70-110) mg/dL Calcium (8.7-10.3) mg/dL Urine Protein (Negative) Urine Glucose (UA) (Negative) Urine Ketones (Negative) Urine Blood (Negative) Urine Mucus (None) /hpf 11/06/22 11/06/22 11/06/22 Range/Units 07:14 07:14 10:20 WBC 13.03 H (4.50-10.00) X 10*3/uL Immature Gran # 0.12 H (0.00-0.04) X 10*3/uL Neutrophils # 11.09 H (1.80-7.70) X 10*3/uL Eosinophils # 0 L (0.04-0.35) X 10*3/uL Sodium 129 L (135-145) mmol/L Anion Gap 9.70 L (10.00-18.00) mmol/L BUN/Creatinine Ratio 11.44 L (12.00-20.00) Ratio Glucose 130 H (70-110) mg/dL POC Glucose (mg/dL) (70-110) mg/dL Calcium 8.1 L (8.7-10.3) mg/dL Urine Protein 2+ H (Negative) Urine Glucose (UA) 1+ H (Negative) Urine Ketones 1+ H (Negative) Urine Blood Small H (Negative) Urine Mucus Rare H (None) /hpf 11/06/22 Range/Units 11:24 WBC (4.50-10.00) X 10*3/uL Immature Gran # (0.00-0.04) X 10*3/uL Neutrophils # (1.80-7.70) X 10*3/uL Eosinophils # (0.04-0.35) X 10*3/uL Sodium (135-145) mmol/L Anion Gap (10.00-18.00) mmol/L BUN/Creatinine Ratio (12.00-20.00) Ratio Glucose (70-110) mg/dL POC Glucose (mg/dL) 111 H (70-110) mg/dL Calcium (8.7-10.3) mg/dL Urine Protein (Negative) Urine Glucose (UA) (Negative) Urine Ketones (Negative) Urine Blood (Negative) Urine Mucus (None) /hpf Microbiology - Last 24 Hours (Table) 11/04/22 15:16 Blood Culture - Preliminary Blood Assessment and Plan Time with Patient: Less than 30
[2022-11-06 21:15] LABS: Glucose,Whole Blood 125 mg/dL (70-110)
[2022-11-06] MEDS: INSULIN ASPART (NovoLOG) 100 UNIT/ML VIAL SQ SCH (21:35)
[2022-11-07] MEDS: SODIUM CHLORIDE 0.9% 1,000 ML IV SCH ×3 (00:57→15:11)
[2022-11-07 05:30] LABS: Glucose,Whole Blood 137 mg/dL (70-110)
[2022-11-07] MEDS: INSULIN ASPART (NovoLOG) 100 UNIT/ML VIAL SQ SCH ×4 (05:43→23:22)
[2022-11-07] MEDS: metFORMIN 500 MG TAB PO SCH ×2 (06:51→17:54)
[2022-11-07] MEDS ORDERED: lisinopriL 20 MG TAB PO SCH (09:00)
[2022-11-07] MEDS: ATORVASTATIN 20 MG TAB PO SCH (09:01)
[2022-11-07] MEDS: FAMOTIDINE 20 MG TAB PO SCH (09:01)
[2022-11-07] MEDS: NYSTATIN 100,000 UNIT/ML SUSP 500,000 UNIT/5 ML CUP PO SCH ×4 (09:02→23:22)
[2022-11-07 11:28] LABS: Glucose,Whole Blood 117 mg/dL (70-110)
--- NOTE | 2022-11-07 13:56 | P.PN ---
Subjective Progress Note Date: 11/07/22 Principal diagnosis: Fever Patient is a 52-year-old male with a past medical history significant for diabetes mellitus hypertension hyperlipidemia presenting to the ER for evaluation of fever diarrhea and abdominal pain, patient did have a CT of abdominal pelvis that did not show any acute abnormality, some atelectasis within the lingula. On today's evaluation that is 11/07/2022 patient fever pattern has improved and did have a low-grade fever of 99.8F this morning , the patient is feeling better the patient abdominal pain has resolved no further nausea and vomiting still having some diarrhea breathing has improved occasional cough or sputum production Objective - Vital Signs Vital signs: Vital Signs Temp 99.8 F H 11/07/22 06:45 Pulse 87 11/07/22 06:45 Resp 16 11/07/22 06:45 BP 107/63 11/07/22 06:45 Pulse Ox 98 11/07/22 06:45 FiO2 Intake & Output 11/06/22 11/07/22 11/07/22 18:59 06:59 18:59 Other: # Voids 3 2 - Exam GENERAL DESCRIPTION: Middle-aged male lying in bed in no distress RESPIRATORY SYSTEM: Unlabored breathing , decreased breath sounds at bases HEART: S1 S2 regular rate and rhythm , ABDOMEN: Soft , no tenderness EXTREMITIES: No edema feet - Labs CBC & Chem 7: 11/06/22 07:14 11/06/22 07:14 Labs: Abnormal Lab Results - Last 24 Hours (Table) 11/06/22 11/06/22 11/06/22 Range/Units 07:14 07:14 10:20 WBC 13.03 H (4.50-10.00) X 10*3/uL Immature Gran # 0.12 H (0.00-0.04) X 10*3/uL Neutrophils # 11.09 H (1.80-7.70) X 10*3/uL Eosinophils # 0 L (0.04-0.35) X 10*3/uL Sodium 129 L (135-145) mmol/L Anion Gap 9.70 L (10.00-18.00) mmol/L BUN/Creatinine Ratio 11.44 L (12.00-20.00) Ratio Glucose 130 H (70-110) mg/dL POC Glucose (mg/dL) (70-110) mg/dL Calcium 8.1 L (8.7-10.3) mg/dL Urine Protein 2+ H (Negative) Urine Glucose (UA) 1+ H (Negative) Urine Ketones 1+ H (Negative) Urine Blood Small H (Negative) Urine Mucus Rare H (None) /hpf 11/06/22 11/06/22 11/06/22 Range/Units 11:24 16:31 21:13 WBC (4.50-10.00) X 10*3/uL Immature Gran # (0.00-0.04) X 10*3/uL Neutrophils # (1.80-7.70) X 10*3/uL Eosinophils # (0.04-0.35) X 10*3/uL Sodium (135-145) mmol/L Anion Gap (10.00-18.00) mmol/L BUN/Creatinine Ratio (12.00-20.00) Ratio Glucose (70-110) mg/dL POC Glucose (mg/dL) 111 H 145 H 125 H (70-110) mg/dL Calcium (8.7-10.3) mg/dL Urine Protein (Negative) Urine Glucose (UA) (Negative) Urine Ketones (Negative) Urine Blood (Negative) Urine Mucus (None) /hpf 11/07/22 Range/Units 05:28 WBC (4.50-10.00) X 10*3/uL Immature Gran # (0.00-0.04) X 10*3/uL Neutrophils # (1.80-7.70) X 10*3/uL Eosinophils # (0.04-0.35) X 10*3/uL Sodium (135-145) mmol/L Anion Gap (10.00-18.00) mmol/L BUN/Creatinine Ratio (12.00-20.00) Ratio Glucose (70-110) mg/dL POC Glucose (mg/dL) 137 H (70-110) mg/dL Calcium (8.7-10.3) mg/dL Urine Protein (Negative) Urine Glucose (UA) (Negative) Urine Ketones (Negative) Urine Blood (Negative) Urine Mucus (None) /hpf Microbiology - Last 24 Hours (Table) 11/04/22 15:16 Blood Culture - Preliminary Blood Assessment and Plan (1) Fever Current Visit: Yes Status: Acute Code(s): R50.9 - FEVER, UNSPECIFIED SNOMED Code(s): 623726608 Plan: 1patient present to hospital with sepsis in this patient who did have fever tachycardia elevated white count patient predominantly did have GI symptoms with nausea vomiting and was noticed to have some tenderness right-sided abdominal likely abdominal source with a question of possible cholecystitis, however the patient CT abdominal pelvis did not show any acute abnormality 2-the patient urine for Legionella antigen came back negative 3We will continue the patient on Rocephin and Zithromax while waiting for the fever to resolve and cultures to finalize before transitioning to oral antibiotic Time with Patient: Less than 30
[2022-11-07 14:57] LABS: African American GFR (CKD) 124.8 (60.0-200.0); Albumin 3.2 g/dL (3.8-4.9); Albumin/Globulin Ratio 1.16 (1.60-3.17); Anion Gap 12.5 mmol/L (10.00-18.00); BUN/Creat Ratio 11.44 Ratio (12.00-20.00); Blood Urea Nitrogen 8.2 mg/dL (9.0-27.0); C Reactive Protein 27.2 mg/dL (0.00-0.80); Carbon Dioxide 18.3 mmol/L (20.0-27.5); Globulin 2.7 g/dL (1.6-3.3); Non-African American GFR(CKD) 107.7 (60.0-200.0); Potassium 4.3 mmol/L (3.5-5.5); Total Bilirubin 0.4 mg/dL (0.30-1.20); Total Protein 5.9 g/dL (6.2-8.2)
[2022-11-07 15:49] LABS: Basophils # (A) 0.09 X 10*3/uL (0.00-0.10); Basophils % (A) 0.8 %; Eosinophils # (A) 0.01 X 10*3/uL (0.04-0.35); Eosinophils % (A) 0.1 %; HGB 14.5 g/dL (13.0-17.0); Immature Grans, Automated 1.4 %; Lymphocytes # (A) 1.08 X 10*3/uL (0.90-5.00); Lymphocytes % (A) 9.7 %; MCH 29.5 pg (27.0-32.0); MCV 89.6 fL (80.0-97.0); Mean Platelet Volume 10.4 fL (9.5-12.2); Monocytes # (A) 0.75 X 10*3/uL (0.20-1.00); Monocytes % (A) 6.8 %; NRBC Per 100 WBC 0.2 /100 WBCS (0.0-0.0); Neutrophils # (A) 9.01 X 10*3/uL (1.80-7.70); Neutrophils % (A) 81.2 %; Platelet Count 219 X 10*3/uL (140-440); RBC 4.91 X 10*6/uL (4.40-5.60); RBC Morphology NORMAL
[2022-11-07 16:23] LABS: Glucose,Whole Blood 126 mg/dL (70-110)
[2022-11-07] MEDS: ACETAMINOPHEN TAB 325 MG TAB PO PRN (20:51)
[2022-11-07] MEDS: ALBUTEROL NEBULIZED 2.5 MG/3 ML INHALATION PRN (21:08)
[2022-11-07 22:06] LABS: Glucose,Whole Blood 137 mg/dL (70-110)
--- NOTE | 2022-11-07 23:28 | P.PN ---
Subjective Progress Note Date: 11/07/22 This is a 52 year old male who is admitted for diarrhea, abdominal pain, found to have a low sodium level. Patient also with persistent fever currently T-Max of 103.1 overnight. ID is following closely patient continues on course of IV antibiotics. Urinalysis done which is not suggestive of UTI. 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 White count today is 13.03. Sodium of 129. Blood culture is currently pending. Abdominal symptoms have improved. Patient will be checked for legionella. Continue supportive care. Lisinopril will be decreased. 11/07/2022 Patient is evaluated today on the medical floor. Remains febrile with Tmax of 102.8 overnight. Patient is continued on supportive care. Infectious disease is following the patient closely and patient remains on IV ceftriaxone. White count has improved to 11.10. Sodium up to 131 off the IV fluids. Inflammatory markers are elevated and procalcitonin level is trending upwards. Patient reports improvement in his breathing. Blood culture remains negative. Review of Systems Constitutional: Denied any fatigue denied any fever. Cardio vascular: denied any chest pain, palpitations Gastrointestinal: denied any nausea, vomiting, diarrhea Pulmonary: Denied any shortness of breath cough Neurologic denied any new focal deficits All inpatient medications were reviewed and appropriate changes in these medications as dictated in the interval history and assessment and plan. PHYSICAL EXAMINATION: GENERAL: The patient is alert and oriented x3, not in any acute distress. Well developed, well nourished. HEENT: Pupils are round and equally reacting to light. EOMI. No scleral icterus. No conjunctival pallor. Normocephalic, atraumatic. No pharyngeal erythema. No thyromegaly. CARDIOVASCULAR: S1 and S2 present. No murmurs, rubs, or gallops. PULMONARY: Chest is clear to auscultation, no wheezing or crackles. ABDOMEN: Soft, nontender, nondistended, normoactive bowel sounds. No palpable organomegaly. MUSCULOSKELETAL: No joint swelling or deformity. EXTREMITIES: No cyanosis, clubbing, or pedal edema. NEUROLOGICAL: Gross neurological examination did not reveal any focal deficits. SKIN: No rashes. Assessment Nausea, vomiting, diarrhea Fever and sepsis of unknown origin Sinus tachycardia Hyponatremia improving off IV fluids Diabetes Mellitus type 2 with hyperglycemia Oral Thrush Chronic and ongoing nicotine use History of asthma with no acute exacerbation Hypertension currently low normal History of [place] and cardiac catheterization with PCI Anxiety/Depression Gi prophylaxis DVT prophylaxis Full Code Plan Continue on IV antibiotics per infectious disease Pending blood cultures, legionella negative Continue on IV fluids, decrease BP medication Nystatin added for the oral thrush F/U labs The impression and plan of care has been dictated by Lily Cabrales, Nurse Practitioner as directed. Dr. Jaden MD I have performed a history and physical examination and medical decision making of this patient, discussed the same with the dictator, and agree with the dictators assessment and plan as written, documented as a scribe. Based on total visit time, I have performed more than 50% of this visit. Objective - Vital Signs Vital signs: Vital Signs Temp 99.4 F 11/07/22 14:00 Pulse 109 H 11/07/22 14:00 Resp 16 11/07/22 14:00 BP 104/65 11/07/22 14:00 Pulse Ox 97 11/07/22 14:00 FiO2 Intake & Output 11/06/22 11/07/22 11/07/22 18:59 06:59 18:59 Other: # Voids 3 2 - Labs CBC & Chem 7: 11/07/22 05:58 11/07/22 05:58 Labs: Abnormal Lab Results - Last 24 Hours (Table) 11/06/22 11/06/22 11/07/22 Range/Units 16:31 21:13 05:28 WBC (4.50-10.00) X 10*3/uL Absolute Nucleated RBC (0.00-0.00) X 10*3/uL Immature Gran # (0.00-0.04) X 10*3/uL Neutrophils # (1.80-7.70) X 10*3/uL Eosinophils # (0.04-0.35) X 10*3/uL NRBC/100 WBC Diff (0.0-0.0) /100 WBCS Sodium (135-145) mmol/L Carbon Dioxide (20.0-27.5) mmol/L BUN (9.0-27.0) mg/dL BUN/Creatinine Ratio (12.00-20.00) Ratio POC Glucose (mg/dL) 145 H 125 H 137 H (70-110) mg/dL Hemoglobin A1c (0.0-6.0) % Calcium (8.7-10.3) mg/dL AST (14-35) U/L ALT (10-49) U/L C-Reactive Protein (0.00-0.80) mg/dL Total Protein (6.2-8.2) g/dL Albumin (3.8-4.9) g/dL Albumin/Globulin Ratio (1.60-3.17) g/dL Procalcitonin (0.02-0.09) ng/mL 11/07/22 11/07/22 11/07/22 Range/Units 05:58 05:58 05:58 WBC 11.10 H (4.50-10.00) X 10*3/uL Absolute Nucleated RBC 0.02 H (0.00-0.00) X 10*3/uL Immature Gran # 0.16 H (0.00-0.04) X 10*3/uL Neutrophils # 9.01 H (1.80-7.70) X 10*3/uL Eosinophils # 0.01 L (0.04-0.35) X 10*3/uL NRBC/100 WBC Diff 0.2 H (0.0-0.0) /100 WBCS Sodium (135-145) mmol/L Carbon Dioxide (20.0-27.5) mmol/L BUN (9.0-27.0) mg/dL BUN/Creatinine Ratio (12.00-20.00) Ratio POC Glucose (mg/dL) (70-110) mg/dL Hemoglobin A1c 7.8 H (0.0-6.0) % Calcium (8.7-10.3) mg/dL AST (14-35) U/L ALT (10-49) U/L C-Reactive Protein (0.00-0.80) mg/dL Total Protein (6.2-8.2) g/dL Albumin (3.8-4.9) g/dL Albumin/Globulin Ratio (1.60-3.17) g/dL Procalcitonin 0.48 H (0.02-0.09) ng/mL 11/07/22 11/07/22 Range/Units 05:58 11:26 WBC (4.50-10.00) X 10*3/uL Absolute Nucleated RBC (0.00-0.00) X 10*3/uL Immature Gran # (0.00-0.04) X 10*3/uL Neutrophils # (1.80-7.70) X 10*3/uL Eosinophils # (0.04-0.35) X 10*3/uL NRBC/100 WBC Diff (0.0-0.0) /100 WBCS Sodium 131 L (135-145) mmol/L Carbon Dioxide 18.3 L (20.0-27.5) mmol/L BUN 8.2 L (9.0-27.0) mg/dL BUN/Creatinine Ratio 11.44 L (12.00-20.00) Ratio POC Glucose (mg/dL) 117 H (70-110) mg/dL Hemoglobin A1c (0.0-6.0) % Calcium 8.0 L (8.7-10.3) mg/dL AST 93 H (14-35) U/L ALT 69 H (10-49) U/L C-Reactive Protein 27.20 H (0.00-0.80) mg/dL Total Protein 5.9 L (6.2-8.2) g/dL Albumin 3.2 L (3.8-4.9) g/dL Albumin/Globulin Ratio 1.16 L (1.60-3.17) g/dL Procalcitonin (0.02-0.09) ng/mL Microbiology - Last 24 Hours (Table) 11/04/22 15:16 Blood Culture - Preliminary Blood Assessment and Plan Time with Patient: Less than 30
[2022-11-07] MEDS ORDERED: SODIUM CHLORIDE 0.9% 1,000 ML IV SCH (23:30)
[2022-11-08 06:08] LABS: Glucose,Whole Blood 148 mg/dL (70-110)
[2022-11-08] MEDS: INSULIN ASPART (NovoLOG) 100 UNIT/ML VIAL SQ SCH ×2 (06:10→12:07)
[2022-11-08] MEDS: metFORMIN 500 MG TAB PO SCH (06:37)
[2022-11-08] MEDS: ALBUTEROL NEBULIZED 2.5 MG/3 ML INHALATION PRN ×2 (07:37→12:22)
[2022-11-08 07:42] VITALS: BP 106/69; RESP 17; TEMP 98.7
[2022-11-08] MEDS ORDERED: lisinopriL 20 MG TAB PO SCH (09:00)
[2022-11-08] MEDS: NYSTATIN 100,000 UNIT/ML SUSP 500,000 UNIT/5 ML CUP PO SCH (09:05)
[2022-11-08] MEDS: ATORVASTATIN 20 MG TAB PO SCH (09:05)
[2022-11-08] MEDS: FAMOTIDINE 20 MG TAB PO SCH (09:06)
[2022-11-08 11:10] LABS: African American GFR (CKD) 125.8 (60.0-200.0); Anion Gap 11.9 mmol/L (10.00-18.00); BUN/Creat Ratio 11.29 Ratio (12.00-20.00); Blood Urea Nitrogen 7.9 mg/dL (9.0-27.0); Calcium 8.4 mg/dL (8.7-10.3); Carbon Dioxide 22.1 mmol/L (20.0-27.5); Non-African American GFR(CKD) 108.5 (60.0-200.0); Potassium 4.2 mmol/L (3.5-5.5)
[2022-11-08 11:51] LABS: Glucose,Whole Blood 123 mg/dL (70-110)
[2022-11-08 12:36] VITALS: PULSE 106
--- NOTE | 2022-11-08 12:55 | P.EN ---
Patient is being discharged home with a nebulizer to manage his COPD. Patient will continue on albuterol treatments 3 times a day. Smoking cessation thoroughly discussed with the patient and also outpatient follow-up with pulmonary for further PFT testing. Scripts were provided to case management.
--- NOTE | 2022-11-08 14:05 | P.PN ---
Subjective Progress Note Date: 11/08/22 Principal diagnosis: Fever Patient is a 52-year-old male with a past medical history significant for diabetes mellitus hypertension hyperlipidemia presenting to the ER for evaluation of fever diarrhea and abdominal pain, patient did have a CT of abdominal pelvis that did not show any acute abnormality, some atelectasis within the lingula. On today's evaluation that is 11/08/2022 patient is afebrile this morning and no fever her last 24-hour, the patient is feeling better the patient abdominal pain has resolved no further nausea and vomiting , the patient is breathing comfortably did have occasional cough minimal sputum, feeling better once to go home Objective - Vital Signs Vital signs: Vital Signs Temp 98.7 F 11/08/22 07:05 Pulse 106 H 11/08/22 07:48 Resp 17 11/08/22 07:05 BP 106/69 11/08/22 07:05 Pulse Ox 99 11/08/22 07:05 FiO2 Intake & Output 11/07/22 11/08/22 11/08/22 18:59 06:59 18:59 Other: # Voids 3 3 - Exam GENERAL DESCRIPTION: Middle-aged male lying in bed in no distress RESPIRATORY SYSTEM: Unlabored breathing , decreased breath sounds at bases HEART: S1 S2 regular rate and rhythm , ABDOMEN: Soft , no tenderness EXTREMITIES: No edema feet - Labs CBC & Chem 7: 11/07/22 05:58 11/08/22 06:43 Labs: Abnormal Lab Results - Last 24 Hours (Table) 11/07/22 11/07/22 11/07/22 Range/Units 05:58 05:58 05:58 WBC 11.10 H (4.50-10.00) X 10*3/uL Absolute Nucleated RBC 0.02 H (0.00-0.00) X 10*3/uL Immature Gran # 0.16 H (0.00-0.04) X 10*3/uL Neutrophils # 9.01 H (1.80-7.70) X 10*3/uL Eosinophils # 0.01 L (0.04-0.35) X 10*3/uL NRBC/100 WBC Diff 0.2 H (0.0-0.0) /100 WBCS Sodium (135-145) mmol/L Carbon Dioxide (20.0-27.5) mmol/L BUN (9.0-27.0) mg/dL BUN/Creatinine Ratio (12.00-20.00) Ratio Glucose (70-110) mg/dL POC Glucose (mg/dL) (70-110) mg/dL Hemoglobin A1c 7.8 H (0.0-6.0) % Calcium (8.7-10.3) mg/dL AST (14-35) U/L ALT (10-49) U/L C-Reactive Protein (0.00-0.80) mg/dL Total Protein (6.2-8.2) g/dL Albumin (3.8-4.9) g/dL Albumin/Globulin Ratio (1.60-3.17) g/dL Procalcitonin 0.48 H (0.02-0.09) ng/mL 11/07/22 11/07/22 11/07/22 Range/Units 05:58 16:22 22:05 WBC (4.50-10.00) X 10*3/uL Absolute Nucleated RBC (0.00-0.00) X 10*3/uL Immature Gran # (0.00-0.04) X 10*3/uL Neutrophils # (1.80-7.70) X 10*3/uL Eosinophils # (0.04-0.35) X 10*3/uL NRBC/100 WBC Diff (0.0-0.0) /100 WBCS Sodium 131 L (135-145) mmol/L Carbon Dioxide 18.3 L (20.0-27.5) mmol/L BUN 8.2 L (9.0-27.0) mg/dL BUN/Creatinine Ratio 11.44 L (12.00-20.00) Ratio Glucose (70-110) mg/dL POC Glucose (mg/dL) 126 H 137 H (70-110) mg/dL Hemoglobin A1c (0.0-6.0) % Calcium 8.0 L (8.7-10.3) mg/dL AST 93 H (14-35) U/L ALT 69 H (10-49) U/L C-Reactive Protein 27.20 H (0.00-0.80) mg/dL Total Protein 5.9 L (6.2-8.2) g/dL Albumin 3.2 L (3.8-4.9) g/dL Albumin/Globulin Ratio 1.16 L (1.60-3.17) g/dL Procalcitonin (0.02-0.09) ng/mL 11/08/22 11/08/22 Range/Units 06:06 06:43 WBC (4.50-10.00) X 10*3/uL Absolute Nucleated RBC (0.00-0.00) X 10*3/uL Immature Gran # (0.00-0.04) X 10*3/uL Neutrophils # (1.80-7.70) X 10*3/uL Eosinophils # (0.04-0.35) X 10*3/uL NRBC/100 WBC Diff (0.0-0.0) /100 WBCS Sodium 132 L (135-145) mmol/L Carbon Dioxide (20.0-27.5) mmol/L BUN 7.9 L (9.0-27.0) mg/dL BUN/Creatinine Ratio 11.29 L (12.00-20.00) Ratio Glucose 120 H (70-110) mg/dL POC Glucose (mg/dL) 148 H (70-110) mg/dL Hemoglobin A1c (0.0-6.0) % Calcium 8.4 L (8.7-10.3) mg/dL AST (14-35) U/L ALT (10-49) U/L C-Reactive Protein (0.00-0.80) mg/dL Total Protein (6.2-8.2) g/dL Albumin (3.8-4.9) g/dL Albumin/Globulin Ratio (1.60-3.17) g/dL Procalcitonin (0.02-0.09) ng/mL Microbiology - Last 24 Hours (Table) 11/04/22 15:16 Blood Culture - Preliminary Blood Assessment and Plan (1) Fever Current Visit: Yes Status: Acute Code(s): R50.9 - FEVER, UNSPECIFIED SNOMED Code(s): 467773235 Plan: 1patient present to hospital with sepsis in this patient who did have fever tachycardia elevated white count patient predominantly did have GI symptoms with nausea vomiting and was noticed to have some tenderness right-sided abdominal likely abdominal source with a question of possible cholecystitis, however the patient CT abdominal pelvis did not show any acute abnormality 2-the patient urine for Legionella antigen came back negative 3the patient fever has responded to the Rocephin cultures has been negative for any resistant pathogen, we will consider oral Ceftin on discharge and close outpatient follow-up Time with Patient: Less than 30
--- NOTE | 2022-11-10 10:08 | P.DS ---
Providers Date of admission: 11/04/22 15:58 Expected date of discharge: 11/08/22 Attending physician: Sintia Weber MD Consults: 11/04/22 15:58 Consult Physician Routine Consulting Provider: Stefania Gonzalez Consult Reason/Comments: sirs Do you want consulting provider notified?: Yes Primary care physician: Karol Gill Hospital Course: Final diagnosis Nausea, vomiting, diarrhea Fever and sepsis of unknown origin Sinus tachycardia COPD, acute exacerbation Hyponatremia improving off IV fluids Diabetes Mellitus type 2 with hyperglycemia Oral Thrush Chronic and ongoing nicotine use History of asthma with no acute exacerbation Hypertension currently low normal History of [place] and cardiac catheterization with PCI Anxiety/Depression Gi prophylaxis DVT prophylaxis Full Code Discharge disposition Patient is being discharged in a stable condition with guarded prognosis to home. Patient will follow-up with Dr. Zeke Bradshaw in the outpatient setting upon discharge. Patient is to continue with oral Ceftin twice daily for the next 1 week per ID recommendations and recommended outpatient follow-up with pulmonary as scheduled. Total time taken is greater than 35 minutes. Hospital course This is a 52-year-old male who was recently admitted with fever with features of sepsis, present on admission as well as cough and congestion possible acute COPD exacerbation. Patient continues to smoke and lengthy discussion was had about smoking cessation this does have history of asthma and likely COPD and needs further PFT testing. Patient referred to pulmonary for further PFT testing. Patient has been cleared by consultations. Please refer to consultation notes for further HPI. Currently no reports of chest pain, shortness of breath, or palpitations. Patient is afebrile. No reports of nausea or vomiting and patient is tolerating diet. Patient will be discharged home today. Physical exam: Gen: This is a 52-year-old male who is awake, alert and oriented 3, well- developed, well-nourished, obese HEENT: Head is atraumatic, normocephalic. Pupils equal, round. Sclerae is anicteric. NECK: Supple. No JVD. No lymphadenopathy. No thyromegaly. LUNGS: Diminished breath sounds bilaterally with some scattered rhonchi. No intercostal retractions. HEART: Regular rate and rhythm. No murmur. ABDOMEN: Soft. Obese. Bowel sounds are present. No masses. No tenderness. EXTREMITIES: No pedal edema. No calf tenderness. NEUROLOGICAL: Patient is awake, alert and oriented x3. Cranial nerves 2 through 12 are grossly intact. Please refer to medication reconciliation sheet for a list of medications. The impression and plan of care has been dictated by Shima Edgar, Nurse Practitioner as directed. Dr. Jaden MD I have performed a history and examination and MDM of this patient, discussed the same with the dictator, and agree with the dictator's assessment and plan as written ,documented as a scribe. Based on total visit time, I have performed more than 50% of the visit. Patient Condition at Discharge: Stable Plan - Discharge Summary New Discharge Prescriptions: New Famotidine [Pepcid] 20 mg PO DAILY #10 tab cefUROXime axetiL [Ceftin] 500 mg PO BID 7 Days #14 tab Nystatin 100,000 Unit/ml Susp [Mycostatin Oral Susp] 500,000 unit PO QID 5 Days #100 ml Acetaminophen Tab [Tylenol] 650 mg PO Q6HR PRN tab PRN Reason: Mild Pain Or Fever > 100.5 Albuterol Nebulized [Ventolin Nebulized] 2.5 mg INHALATION RT-Q4H PRN #60 each PRN Reason: Shortness Of Breath Or Wheezing Continue metFORMIN HCL [Glucophage] 500 mg PO BID #60 tab Evolocumab [Repatha Sureclick] 140 mg SQ Q14D Atorvastatin [Lipitor] 20 mg PO DAILY Albuterol Inhaler [Ventolin Hfa Inhaler] 1 puff INHALATION RT-Q4H PRN PRN Reason: Shortness Of Breath Or Wheezing lisinopriL 40 mg PO DAILY Discharge Medication List metFORMIN HCL [Glucophage] 500 mg PO BID #60 tab 03/07/21 [Rx] Albuterol Inhaler [Ventolin Hfa Inhaler] 1 puff INHALATION RT-Q4H PRN 11/04/22 [History] Atorvastatin [Lipitor] 20 mg PO DAILY 11/04/22 [History] Evolocumab [Repatha Sureclick] 140 mg SQ Q14D 11/04/22 [History] lisinopriL 40 mg PO DAILY 11/04/22 [History] Acetaminophen Tab [Tylenol] 650 mg PO Q6HR PRN tab 11/08/22 [Rx] Albuterol Nebulized [Ventolin Nebulized] 2.5 mg INHALATION RT-Q4H PRN #60 each 11/08/22 [Rx] Famotidine [Pepcid] 20 mg PO DAILY #10 tab 11/08/22 [Rx] Nystatin 100,000 Unit/ml Susp [Mycostatin Oral Susp] 500,000 unit PO QID 5 Days #100 ml 11/08/22 [Rx] cefUROXime axetiL [Ceftin] 500 mg PO BID 7 Days #14 tab 11/08/22 [Rx] Follow up Appointment(s)/Referral(s): Karol Gill MD [Primary Care Provider] - 11/14/22 3:00 pm Shelley Pradhan MD [STAFF PHYSICIAN] - 11/19/22 1:30 pm (PFT studies) Ambulatory/Diagnostic Orders: Complete Blood Count w/diff [LAB.AMB] Time Frame: 5 Days, Location: None Selected Patient Instructions/Handouts: Pneumonia (DC) Activity/Diet/Wound Care/Special Instructions: Activity Limited until follow-up Follow-up with primary care provider on discharge continue heart healthy diabetic diet Follow-up with pulmonary outpatient for further PFT studies Continue taking medications as prescribed Recommend repeat labs in the next 1 week Discharge Disposition: HOME SELF-CARE
== END 2022-11-08 15:00 | disposition home or self-care (01) | DRG 720 ==
LOC: EC 14:04 → 4SSUR 15:58
PROVIDERS: ADMIT Internal Medicine; ATTEND Internal Medicine
DX: A41.9 Sepsis, unspecified organism (principal); E11.65 Type 2 diabetes mellitus with hyperglycemia; I10 Essential (primary) hypertension; J45.909 Unspecified asthma, uncomplicated; M19.90 Unspecified osteoarthritis, unspecified site; E78.5 Hyperlipidemia, unspecified; E87.1 Hypo-osmolality and hyponatremia; E86.0 Dehydration; Z20.822 Contact with and (suspected) exposure to COVID-19; R19.7 Diarrhea, unspecified; R00.0 Tachycardia, unspecified; F32.A Depression, unspecified; F41.9 Anxiety disorder, unspecified; B37.0 Candidal stomatitis; J44.1 Chronic obstructive pulmonary disease with (acute) exacerbation; I25.2 Old myocardial infarction; G89.29 Other chronic pain; G43.909 Migraine, unspecified, not intractable, without status migrainosus; Z79.84 Long term (current) use of oral hypoglycemic drugs; Z79.899 Other long term (current) drug therapy; Z82.49 Family history of ischemic heart disease and other diseases of the circulatory system; Z95.5 Presence of coronary angioplasty implant and graft; Z88.8 Allergy status to other drugs, medicaments and biological substances
CPT/HCPCS: 36415; 71046; 74176; 80048; 80053; 81001; 83036; 83605; 83735; 84145; 85025; 85610; 85730; 86140; 87040; 87449; 87636; 93005; 94640; 96361; 96365; 99285

== ENCOUNTER 2023-06-23 16:53 | Emergency (ER) | payer OTHER ==
--- NOTE | 2023-06-23 16:56 | ED ---
Chest Pain HPI - General Source: patient, RN notes reviewed <Yadira Armendariz - Last Filed: 06/28/23 22:24> - General Source: RN notes reviewed, old records reviewed Mode of arrival: ambulatory Limitations: no limitations - History of Present Illness MD Complaint: chest pain, other (Shortness of breath) -: days(s) Onset: during rest, during exertion Pain Location: substernal Consistency: constant Improves With: nothing Worsens With: nothing <Elijah Ramos - Last Filed: 07/01/23 16:11> - General Stated Complaint: chest pains, sob ,numbness Time Seen by Provider: 06/23/23 16:55 - History of Present Illness Initial Comments: Patient is a 52-year-old male presented ER chief complaint chest pain. Patient states couple days ago. Patient denies exerting himself when the pain started. Patient also is endorsing shortness of breath. (Yadira Armendariz) This 52-year-old male to the emergency department for evaluation of chest pain today. Persistent chest pain ongoing with significant shortness of breath. (Elijah Ramos) - Related Data Home Medications Medication Instructions Recorded Confirmed Albuterol Inhaler [Ventolin Hfa 1 puff INHALATION RT-Q4H PRN 11/04/22 11/04/22 Inhaler] Atorvastatin [Lipitor] 20 mg PO DAILY 11/04/22 11/04/22 Evolocumab [Repatha Sureclick] 140 mg SQ Q14D 11/04/22 11/04/22 lisinopriL 40 mg PO DAILY 11/04/22 11/04/22 Previous Rx's Medication Instructions Recorded metFORMIN HCL [Glucophage] 500 mg PO BID #60 tab 03/07/21 Acetaminophen Tab [Tylenol] 650 mg PO Q6HR PRN tab 11/08/22 Albuterol Nebulized [Ventolin 2.5 mg INHALATION RT-Q4H PRN #60 11/08/22 Nebulized] each Famotidine [Pepcid] 20 mg PO DAILY #10 tab 11/08/22 Nystatin 100,000 Unit/ml Susp 500,000 unit PO QID 5 Days #100 ml 11/08/22 [Mycostatin Oral Susp] cefUROXime axetiL [Ceftin] 500 mg PO BID 7 Days #14 tab 11/08/22 Allergies Allergy/AdvReac Type Severity Reaction Status Date / Time diclofenac sodium Allergy Anaphylaxis Verified 06/23/23 16:58 [From Arthrotec] misoprostol [From Arthrotec] Allergy Anaphylaxis Verified 06/23/23 16:58 Review of Systems ROS Other: All systems not noted in ROS Statement are negative. <Yadira Armendariz - Last Filed: 06/28/23 22:24> ROS Other: All systems not noted in ROS Statement are negative. <Elijah Ramos - Last Filed: 07/01/23 16:11> ROS Statement: Those systems with pertinent positive or pertinent negative responses have been documented in the HPI. EKG Findings - EKG Comments: EKG Findings:: EKG is sinus tachycardia 104 [address] 137 QRS 90 QTC 380 - EKG Results: EKG: interpreted by ERMD <Elijah Ramos - Last Filed: 07/01/23 16:11> Past Medical History Past Medical History: Asthma, Chest Pain / Angina, Diabetes Mellitus, GERD/Reflux, Hyperlipidemia, Hypertension, Myocardial Infarction (AR), Osteoarthritis (OA) Additional Past Medical History / Comment(s): ARTHRITIS multiple joints, CHRONIC PAIN, pinched nerves lumbar region, migraines. Last Myocardial Infarction Date:: 07/2016 History of Any Multi-Drug Resistant Organisms: None Reported Past Surgical History: Heart Catheterization With Stent, Orthopedic Surgery Additional Past Surgical History / Comment(s): 2016 heart cath w/stent, 10/10/14 PTCA with stent to proximal LAD, LEFT KNEE ARTHROSCOPY, R wrist CARPAL TUNNEL, LEFT and right HAND TRIGGER FINGER RELEASE, pain clinic procedures-lumbar/sacral areas. Past Anesthesia/Blood Transfusion Reactions: Postoperative Nausea & Vomiting (PONV) Additional Past Anesthesia/Blood Transfusion Reaction / Comment(s): never recieved blood Date of Last Stent Placement:: 2014 Past Psychological History: Anxiety, Depression Smoking Status: Current every day smoker Past Alcohol Use History: None Reported Past Drug Use History: Marijuana - Past Family History Father Family Medical History: Congestive Heart Failure (CHF), Coronary Artery Disease (CAD) Additional Family Medical History / Comment(s): Father at the age of 63 yrs from cardiac aneurysm. Mother Family Medical History: Diabetes Mellitus, Hypertension, Osteoarthritis (OA) Additional Family Medical History / Comment(s): Back problems <Yadira Armendariz - Last Filed: 06/28/23 22:24> General Exam <Yadira Armendariz - Last Filed: 06/28/23 22:24> General appearance: alert, in no apparent distress Head exam: Present: atraumatic, normocephalic, normal inspection Eye exam: Present: normal appearance ENT exam: Present: normal exam, mucous membranes moist Neck exam: Present: normal inspection. Absent: tenderness, meningismus, lymphadenopathy Cardiovascular Exam: Present: tachycardia Extremities exam: Present: normal inspection, full ROM, normal capillary refill. Absent: tenderness, pedal edema, joint swelling, calf tenderness Back exam: Present: normal inspection Neurological exam: Present: alert, oriented X3, CN II-XII intact Psychiatric exam: Present: normal affect, normal mood Skin exam: Present: warm, dry, intact, normal color. Absent: rash <Elijah Ramos - Last Filed: 07/01/23 16:11> - General Exam Comments Initial Comments: Visual Physical Exam Vital signs reviewed General: Well-appearing, nontoxic, no acute distress. Head: Normocephalic, atraumatic Eyes: PERRLA, EOMI ENT: Airway patent Chest: Nonlabored breathing Skin: No visual rash, normal skin tone Neuro: Alert and oriented 3 Musculoskeletal: No gross abnormalities (Yadira Armendariz) Course <Elijah Ramos - Last Filed: 07/01/23 16:11> Vital Signs 06/23/23 16:54 Temperature 97.7 F Pulse Rate 104 H Respiratory 18 Rate Blood Pressure 118/69 O2 Sat by Pulse 98 Oximetry - Reevaluation(s) Reevaluation #1: Medical record is reviewed (Elijah Ramos) Reevaluation #2: Attempting to find patient in patient is not in the waiting room or in the emergency department (Elijah Ramos) Reevaluation #3: Patient eloped (Elijah Ramos) Reevaluation #5: Differential Chest Pain: Stable Angina, Unstable Angina, STEMI, NSTEMI Aortic Dissection, Pneumothorax, Musculoskeletal, Esophageal Spasm GERD, Cholecystitis, Pancreatitis, Zoster, this is not meant to be an all-inclusive list. (Elijah Ramos) Chest Pain MDM <Yadira Armendariz - Last Filed: 06/28/23 22:24> <Elijah Ramos - Last Filed: 07/01/23 16:11> - MDM I performed the quick note portion of the exam. Electronically signed by Yadira Armendariz PA-C (Yadira Armendariz) 52 male to the ER today for evaluation of chest pain was found a positive coronavirus. Attempted to discharge patient and he was unable to be found in the emergency department he did leave AGAINST MEDICAL ADVICE Studies Chest x-rays negative for acute disease interpreted by me (Elijah Ramos) Disposition Time of Disposition: 22:24 <Yadira Armendariz - Last Filed: 06/28/23 22:24> <Elijah Ramos - Last Filed: 07/01/23 16:11> Clinical Impression: Left against medical advice, COVID-19 Disposition: LEFT AGAINST MEDICAL ADVICE Condition: Undetermined Referrals: Karol Gill MD [Primary Care Provider] - 1-2 days
[2023-06-23 17:06] VITALS: BP 118/69; PULSE 104; RESP 18; TEMP 97.7
[2023-06-23 17:24] LABS: Basophils # (A) 0.1 k/uL (0-0.2); Basophils % (A) 1 %; Eosinophils # (A) 0.1 k/uL (0-0.7); Eosinophils % (A) 1 %; HCT 48.7 % (39.0-53.0); HGB 17.1 gm/dL (13.0-17.5); Lymphocytes # (A) 1.4 k/uL (1.0-4.8); Lymphocytes % (A) 18 %; MCH 31.6 pg (25.0-35.0); MCHC 35.2 g/dL (31.0-37.0); MCV 89.8 fL (80.0-100.0); Mean Platelet Volume 7.2; Monocytes # (A) 0.8 k/uL (0-1.0); Monocytes % (A) 10 %; Neutrophils # (A) 5.3 k/uL (1.3-7.7); Neutrophils % (A) 66 %; Platelet Count 225 k/uL (150-450); RBC 5.43 m/uL (4.30-5.90); RDW 13.3 % (11.5-15.5)
[2023-06-23 17:38] LABS: INR 0.9 (<1.2); Partial Thromboplastin Time 27.4 sec (22.0-30.0); Prothrombin Time 10.5 sec (10.0-12.5)
[2023-06-23 17:40] LABS: ALT 47 U/L (4-49); AST 48 U/L (17-59); African American GFR (CKD) >90 (>60 ml/min/1.73 sqM); Albumin 4.5 g/dL (3.5-5.0); Alkaline Phosphatase 70 U/L (38-126); Anion Gap 16 mmol/L; Blood Urea Nitrogen 18 mg/dL (9-20); Calcium 9.3 mg/dL (8.4-10.2); Carbon Dioxide 16 mmol/L (22-30); Chloride 99 mmol/L (98-107); Glucose 177 mg/dL (74-99); Magnesium 1.9 mg/dL (1.6-2.3); Non-African American GFR(CKD) >90 (>60 ml/min/1.73 sqM); Potassium 4.6 mmol/L (3.5-5.1); Sodium 131 mmol/L (137-145); Total Protein 7.9 g/dL (6.3-8.2)
--- NOTE | 2023-06-23 18:30 | XR ---
EXAMINATION TYPE: XR chest 2V DATE OF EXAM: 06/23/2023 COMPARISON: 11/04/2022 INDICATION: Chest pain TECHNIQUE: Frontal and lateral views of the chest are obtained. FINDINGS: The heart size is normal. The pulmonary vasculature is normal. The lungs are clear. There is hyperinflation and flattening the diaphragms. Correlate for COPD. IMPRESSION: 1. No acute pulmonary process. 2. Clinical consideration for COPD.
== END 2023-06-23 22:14 | disposition left against medical advice (07) ==
LOC: EC 16:53
DX: U07.1 COVID-19 (principal); E11.9 Type 2 diabetes mellitus without complications; I10 Essential (primary) hypertension; I25.2 Old myocardial infarction; J45.909 Unspecified asthma, uncomplicated; E78.5 Hyperlipidemia, unspecified; F17.200 Nicotine dependence, unspecified, uncomplicated; Z53.29 Procedure and treatment not carried out because of patient's decision for other reasons; Z79.899 Other long term (current) drug therapy; Z88.6 Allergy status to analgesic agent; Z88.8 Allergy status to other drugs, medicaments and biological substances; Z95.5 Presence of coronary angioplasty implant and graft
CPT/HCPCS: 36415; 71046; 80053; 83735; 84484; 85025; 85379; 85610; 85730; 87636; 93005; 99285